=== PATIENT | female | born 1965 | race Caucasian/White ===

== ENCOUNTER → 2016-09-30 | Outpatient (CLI) | payer BC ==
[~2016-09-30] MED LIST: AMT50 PO; BUPR100T8 PO; ESTR1DIS TOP; GABA1CAP4 PO; LEVO-14 PO; MELATAB2 PO; MULT-808 PO; OMEP20CA9 PO; PRED20TA2 PO; RANI300T PO; SUMA100T16 PO; VALE450C4 PO; WLLSR150 PO
[2016-09-30 10:12] LABS: BASO % 0.2 %; BASO ABS # 0.02 K/uL (0-0.2); COMPLETE YES; EOS % 2.6 %; HEMATOCRIT 42.8 % (37-47); IG% 0.1 %; LYMPH % 23.6 %; MEAN CELL VOLUME 90.5 fL (80-100); MEAN CORPUSCULAR HEMOGLOBIN 30.4 pg (25-34); MEAN CORPUSCULAR HGB CONC 33.6 g/dl (32-36); MONO % 5.2 %; NEUT % 68.3 %; PLATELET COUNT 340 K/uL (130-400); RED BLOOD COUNT 4.73 M/uL (4.2-5.4); WHITE BLOOD COUNT 8.06 K/uL (4.8-10.8)
[2016-09-30 11:28] LABS: LYME DISEASE AB IGG NEG (NEG); LYME DISEASE AB IGM NEG (NEG)
== END | disposition home or self-care (01) ==
LOC: C.LAB 09:52
PROVIDERS: ATTEND Nurse Practitioner Family
DX: L50.9 Urticaria, unspecified (principal)

== ENCOUNTER → 2016-10-18 | Outpatient (CLI) | payer BC ==
[2016-10-18 14:43] LABS: HEMATOCRIT 44.7 % (37-47); MEAN CELL VOLUME 89.4 fL (80-100); MEAN CORPUSCULAR HGB CONC 32.4 g/dl (32-36); MEAN PLATELET VOLUME 9.1 fL (7.4-10.4); PLATELET COUNT 455 K/uL (130-400); WHITE BLOOD COUNT 11.82 K/uL (4.8-10.8)
[2016-10-18 15:07] LABS: CALCIUM 9.5 mg/dl (8.5-10.1)
[2016-10-18 15:10] LABS: BLOOD UREA NITROGEN 16 mg/dl (7-18); BUN/CREATININE RATIO 15.8 (10-20); CARBON DIOXIDE 31 mmol/L (21-32); CHLORIDE 101 mmol/L (98-107); GLUCOSE 78 mg/dl (70-99); POTASSIUM 3.3 mmol/L (3.5-5.1); SODIUM 140 mmol/L (136-145)
[2016-10-18 15:12] LABS: BASO % 0.3 %; BASO ABS # 0.04 K/uL (0-0.2); COMPLETE YES; EOS % 1.9 %; IG% 0.4 %; LYMPH % 45.3 %; LYMPH ABS # 5.36 K/uL (1.2-3.4); MONO % 6.7 %; NEUT % 45.4 %
[2016-10-18 15:13] LABS: ALB/GLOB RATIO 0.9 (0.9-2); ALKALINE PHOSPHATASE 90 U/L (45-117); ALT/SGPT 30 U/L (12-78); AST/SGOT 15 U/L (15-37)
[2016-10-20 14:24] LABS: BEEF CLASS 0; BEEF IGE <0.10 KU/L; CHOCOLATE CLASS 0; CHOCOLATE IGE <0.10 KU/L; CLAM CLASS 0/1; CLAM IGE 0.11 KU/L; CORN CLASS 0; CORN IGE <0.10 KU/L; CRAB CLASS 0/1; CRAB IGE 0.14 KU/L; EGG MIX CLASS 0; EGG MIX IGE <0.10 KU/L; LOBSTER CLASS 0; LOBSTER IGE <0.10 KU/L; PEANUT IGE <0.10 KU/L; PORK CLASS 0; PORK IGE <0.10 KU/L; SHRIMP CLASS 2; SOY CLASS 0; SOY IGE <0.10 KU/L; WHEAT CLASS 0; WHEAT IGE <0.10 KU/L
== END | disposition home or self-care (01) ==
LOC: C.LAB1850 13:09
PROVIDERS: ATTEND Internal Medicine Pulmonary Disease
DX: L50.9 Urticaria, unspecified (principal)

== ENCOUNTER 2016-12-26 06:16 | Emergency (ER) | payer BC ==
[~2016-12-26] VITALS: Ht 167.6 cm; Wt 90.6 kg
[~2016-12-26 06:16] MED LIST changes: -LEVO-14 PO; -MELATAB2 PO; -MULT-808 PO; -PRED20TA2 PO; -RANI300T PO; -VALE450C4 PO; -WLLSR150 PO
[2016-12-26 06:21] VITALS: TEMP 36.9; Ht 167.6 cm; Wt 90.6 kg
[2016-12-26] MEDS ORDERED: DiphenhydrAMINE HCL 50 MG/ML VIAL IV STA (06:43)
[2016-12-26] MEDS ORDERED: DEXAMETHASONE INJ 8 MG in SYRINGE 0 ML IV ONE (06:45)
[2016-12-26] MEDS ORDERED: FAMOTIDINE IV INJ 40 MG in DEXTROSE 5% 100ML 100 ML IV SCH (06:45)
[2016-12-26] MEDS ORDERED: SODIUM CHLORIDE 0.9% 1000ML 1,000 ML IV STA (06:46)
[2016-12-26] MEDS ORDERED: DEXAMETHASONE SOD INJ 10 MG/ML VIAL ONE (06:49)
[2016-12-26] MEDS ORDERED: WLLSR150 PO (06:54)
[2016-12-26] MEDS ORDERED: RANI300T PO (06:54)
[2016-12-26] MEDS ORDERED: PRED20TA2 PO (06:54)
[2016-12-26] MEDS ORDERED: LEVO-14 PO (06:54)
[2016-12-26] MEDS ORDERED: MULT-808 PO (06:56)
[2016-12-26] MEDS ORDERED: VALE450C4 PO (06:56)
[2016-12-26] MEDS ORDERED: MELATAB2 PO (06:57)
--- NOTE | 2016-12-26 07:26 | EMERGENCY ROOM VISIT NOTE ---
History Report prepared by Amberly: Ivett Calero Under the Supervision of: Dr. Quinton Barr D.O. First contact with patient: 06:28 Chief Complaint: ALLERGIC REACTION Stated Complaint: SWELLING OF FACE AND TONGUE Nursing Triage Summary: see triage note History of Present Illness The patient is a 51 year old female who presents to the Emergency Room with complaints of a sudden allergic reaction beginning 3 hours prior to arrival. The patient states that she woke up to go to the bathroom this morning and noticed that her tongue and left eye were swollen. She denies eating anything new recently, or trying any new deodorants, soaps, or detergents. She reports that she has a history of hives and takes prednisone as needed for her hives. She reports that she took 40 mg of prednisone today. The patient states that she has also started seeing an dredge captain. She reports that she has lip swelling about 2-3 times per week but not to this extent. She recently has had her dosage of Wellbutrin increased from 100 to 150 mg. She has no new contacts, animals, trips, waste cotton cleaner/detergents/clothing or medications. She reports that she had trouble swallowing earlier and was nauseous. Pt denies headache, change in vision, fevers, chest pain, shortness of breath, vomiting, diarrhea, pain with urination, and melena. Source of History: patient Onset: 3 hours prior to arrival Quality: other (allergic reaction) Timing: other (sudden) Associated Symptoms: + nausea, No fevers, No chest pain, No SOB, No urinary symptoms Review of Systems See HPI for pertinent positives & negatives. A total of 10 systems reviewed and were otherwise negative. Past Medical & Surgical Medical Problems: (1) Diverticulitis (2) Hernia (3) Migraines (4) Ovarian cyst (5) S/P hernia surgery (6) Small bowel obstruction Surgical Problems: (1) H/O ileostomy (2) H/O oophorectomy (3) H/O resection of small bowel (4) H/O: hysterectomy Family History Cancer Social History Smoking Status: Never Smoker Alcohol Use: none Marital Status: Housing Status: lives with significant other Occupation Status: employed Current/Historical Medications Scheduled Amitriptyline Hcl (Elavil), 50 MG PO HS Bupropion HCl (Bupropion HCl Sr), 150 MG PO BID Levocetirizine Dihydrochloride (Levocetirizine Dihydrochl), 5 MG PO QPM Melatonin (Melatonin Maximum Strengt), 10 MG PO HS Multiple Vitamin (Daily Vitamin), 1 TAB PO DAILY Omeprazole (Prilosec), 20 MG PO DAILY Ranitidine Hcl (Zantac), 300 MG PO BID Valerian (Valeriana Officinali (Valerian Root), 2 TABS PO HS Scheduled PRN Prednisone (Prednisone Tab), 40 MG PO UD PRN for hives Allergies Coded Allergies: Codeine (Verified Allergy, Mild, CAN TAKE PERCOCET, 12/26/16) Physical Exam Vital Signs Date Time Temp Pulse Resp B/P (MAP) Pulse Ox O2 Delivery O2 Flow Rate FiO2 12/26/16 09:35 102 14 126/78 95 Room Air 12/26/16 08:05 96 20 136/85 95 Room Air 12/26/16 06:25 97 Room Air 12/26/16 06:21 36.9 118 18 121/71 97 Room Air Physical Exam GENERAL: sitting up in bed, alert, well appearing, well nourished, no distress, non-toxic EYE EXAM: normal conjunctiva, PERRL and EOM's grossly intact, periorbital edema worse on the left eye than the right eye; able to completely open right eye, left eye with supraorbital swelling only allowing her to lift left eyelid a 1/ 4. No surrounding erythema or induration, skin intact. OROPHARYNX: no exudate, no erythema, lips, buccal mucosa, and tongue normal and mucous membranes are moist NECK: supple, no nuchal rigidity, no adenopathy, non-tender, no stridor LUNGS: Clear to auscultation. Normal chest wall mechanics HEART: no murmurs, S1 normal and S2 normal ABDOMEN: abdomen soft, non-tender, normo-active bowel sounds, no masses, no rebound or guarding. BACK: Back is symmetrical on inspection and there is no deformity, no midline tenderness, no CVA tenderness. SKIN: Warm lesion on left scapula which is erythematous, blanching, and circular about 3 cm UPPER EXTREMITIES: upper extremities are grossly normal. LOWER EXTREMITIES: No pitting edema. NEURO EXAM: Normal sensorium, cranial nerves II-XII intact, normal speech, no weakness of arms, no weakness of legs. Medical Decision & Procedures Medications Administered Medications (Trade) Dose Ordered Sig/Cecil Route Start Time Stop Time Status Last Admin Dose Admin Diphenhydramine HCl (Benadryl Inj) 50 mg NOW STAT IV 12/26/16 06:43 12/26/16 06:45 DC 12/26/16 06:55 50 MG Famotidine 40 mg/ Dextrose 104 ml @ 200 mls/hr NOW IV 12/26/16 06:45 12/26/16 10:24 DC 12/26/16 07:16 200 MLS/HR Sodium Chloride 1,000 ml @ 999 mls/hr Q1H1M STAT IV 12/26/16 06:46 12/26/16 07:46 DC 12/26/16 06:54 999 MLS/HR Dexamethasone Sodium Phosphate (Decadron Inj) 10 mg STK-MED ONCE .ROUTE 12/26/16 06:49 12/26/16 06:50 DC 12/26/16 06:54 8 MG ED Course ED COURSE: Vital signs were reviewed and showed tachycardia, situational hypertension. The patients medical record was reviewed The above diagnostic studies were performed and reviewed. ED treatments and interventions as stated above. 0635: The patient was evaluated in room A9. A complete history and physical examination was performed. 0643: Ordered Benadryl Inj 50 mg IV. 0645: Ordered Famotidine 40 mg/Dextrose 104 ml @ 200 mls/hr IV. 0646: Ordered Sodium Chloride 1,000 ml @ 999 mls/hr IV. 0649: Ordered Decadron Inj 8 mg. 0806: The patient's swelling has improved and she is now able to fully open her left eye. She no longer has swelling or numbness of her tongue. 0940: I updated the patient. 0945: Upon reevaluation, the patient is feeling better. I discussed the findings and the treatment plan with the patient. She verbalizes agreement and understanding. She was discharged home. Medical Decision Differential diagnosis: Etiologies such as allergic reaction, anaphylaxis, urticaria, Odom-Michael syndrome, toxic epidermal necrolysis, erythema multiforme, cellulitis, as well as others were entertained. Blood Pressure Screening: The patient was found to have a slightly elevated blood pressure due to circumstances. I do not believe that the patient requires hypertension monitoring. Medication Reconciliation: I attest that I have personally reviewed the patient' s current medication list. Patient is a 51-year-old female who presents the ER following noticing her tongue and eyes swelling this morning. She notes that she has been following with a early childhood services coordinator, dredge captain and PCP for intermittent hives that she has been getting about twice a week over the past several months. She has home steroids which she takes when she gets these hives. She took 40 mg of prednisone prior to arrival. She notes the swelling of her tongue has improved significantly and she is now able to open her left eye which she was unable to initially. On exam she is obvious swelling of her face. She is not on any DENIA or ARB. She is tolerating her secretions. Able to drink water. No shortness of breath. IV was established and she was given fluids, famotidine, steroids and Benadryl. She has no new contacts, animals, trips, waste cotton cleaner/detergents/ clothing or medications. Patient was discharged following 2 hours of observation feeling significantly better to follow-up with PCP and dredge captain. Discussed with Pt concerning signs and symptoms to watch out for. Pt was instructed to follow up with their PCP and discussed with the patient their option to return to the ED at anytime for persistent or worsening symptoms. The appropriate anticipatory guidance and out-patient management, including indications for return to the emergency department, were explained at length to the patient and understood. Medication Reconcilliation Current Medication List: was personally reviewed by me Impression Primary Impression: Allergic reaction Scribe Attestation The scribe's documentation has been prepared under my direction and personally reviewed by me in its entirety. I confirm that the note above accurately reflects all work, treatment, procedures, and medical decision making performed by me. Departure Information Dispostion Home / Self-Care Referrals Aleksander Rodriguez D.O. (PCP) Forms HOME CARE DOCUMENTATION FORM, IMPORTANT VISIT INFORMATION Patient Instructions ED Allergic Reaction General Other, My [facility] Additional Instructions Please follow up with your primary care doctor or if you are a student, [facility] with in the next 24 hours. Any worsening of your symptoms, please return to the ED immediately. This includes any fevers greater than 100.4, worsening pain, chest pain, shortness breath, inability to swallow, sewing the throat, persistent nausea, vomiting, unable to eat or drink, or any other concerning signs or symptoms from your standpoint. You were given medications during this visit that will inhibit your ability to drive, operate machinery and work. Please do NOT drive, operate machinery, drink alcohol or work for the next 12hrs. Please follow up with your early childhood services coordinator, dredge captain and PCP. Please take 50 mg of Benadryl every 8 hours as needed for swelling. Problem Qualifiers Primary Impression: Allergic reaction Encounter type: initial encounter Qualified Codes: T78.40XA - Allergy, unspecified, initial encounter
[2016-12-26 09:35] VITALS: BP 126/78; PULSE 102; O2SAT 95
== END 2016-12-26 10:00 | disposition home or self-care (01) ==
LOC: C.EDB 06:17 → C.EDA 10:00
DX: T78.40XA Allergy, unspecified, initial encounter (principal); X58.XXXA Exposure to other specified factors, initial encounter; N83.209 Unspecified ovarian cyst, unspecified side; K58.9 Irritable bowel syndrome, unspecified; K57.92 Diverticulitis of intestine, part unspecified, without perforation or abscess without bleeding; Z93.2 Ileostomy status; Z98.84 Bariatric surgery status; Z90.710 Acquired absence of both cervix and uterus; Z90.721 Acquired absence of ovaries, unilateral; Z79.899 Other long term (current) drug therapy; Z88.5 Allergy status to narcotic agent; Z80.9 Family history of malignant neoplasm, unspecified

== ENCOUNTER → 2017-01-30 | Outpatient (CLI) | payer BC ==
[~2017-01-30] MED LIST changes: -BUPR100T8 PO; -ESTR1DIS TOP; -GABA1CAP4 PO; +LEVO-14 PO; +MELATAB2 PO; +MULT-808 PO; +PRED20TA2 PO; +RANI300T PO; -SUMA100T16 PO; +VALE450C4 PO; +WLLSR150 PO
[2017-02-04 02:23] LABS: ANTI-CENTROMERE AB <1.0 NEG AI (<1.0 NEG); ANTI-SS-A <1.0 NEG AI (<1.0 NEG); ANTI-SS-B <1.0 NEG AI (<1.0 NEG); DNA ds CRITHIDIA NEGATIVE (NEGATIVE); MICROSOMAL AB <1 IU/ML (<9); Sm Antibody <1.0 NEG AI (<1.0 NEG)
== END | disposition home or self-care (01) ==
LOC: C.LAB1850 11:00
PROVIDERS: ATTEND Internal Medicine Pulmonary Disease
DX: T78.3XXA Angioneurotic edema, initial encounter (principal); X58.XXXA Exposure to other specified factors, initial encounter

== ENCOUNTER → 2017-03-30 | Outpatient (CLI) | payer BC ==
--- NOTE | 2017-03-30 15:38 | MAMMOGRAPHY REPORT ---
BILATERAL DIGITAL SCREENING MAMMOGRAM TOMOSYNTHESIS WITH CAD: 03/30/2017 CLINICAL HISTORY: Routine screening. Patient has no complaints. TECHNIQUE: Breast tomosynthesis in addition to standard 2D mammography was performed. Current study was also evaluated with a Computer Aided Detection (CAD) system. COMPARISON: Comparison is made to exams dated: 03/23/2016 mammogram, 02/05/2015 mammogram, 01/30/2014 m ammogram, 11/17/2009 mammogram - [facility], 04/15/2008, and 06/12/2006. BREAST COMPOSITION: There are scattered areas of fibroglandular density in both breasts. FINDINGS: No suspicious masses, calcifications, or areas of architectural distortion are noted in ei ther breast. There has been no significant interval change compared to prior exams. The breasts are smaller in size bilaterally compared to prior exams, possibly representing interval reduction mammopl asty. IMPRESSION: ACR BI-RADS CATEGORY 2: BENIGN There is no mammographic evidence of malignancy. A 1 year screening mammogram is recommended. The pa tient will receive written notification of the results. Approximately 10% of breast cancers are not detected with mammography. A negative mammographic report should not delay biopsy if a clinically suggestive mass is present. Rae Butler M.D. ah/:03/30/2017 15:06:04 Salesperson House[employer] Appliances: Digna GUILLEN(Bert)(M), [facility] letter sent: Normal 1/2 BI-RADS Code: ACR BI-RADS Category 2: Benign
== END | disposition home or self-care (01) ==
LOC: C.MAMM 14:26
PROVIDERS: ATTEND Surgery Plastic and Reconstructive Surgery
DX: Z12.31 Encounter for screening mammogram for malignant neoplasm of breast (principal)

== ENCOUNTER → 2017-04-09 | Outpatient (CLI) | payer BC | END | disposition home or self-care (01) | LOC: C.LAB1850 15:54 | PROVIDERS: ATTEND Internal Medicine Pulmonary Disease | DX: T78.3XXA Angioneurotic edema, initial encounter (principal); X58.XXXA Exposure to other specified factors, initial encounter ==

== ENCOUNTER 2017-06-13 08:43 | Emergency (ER) | payer BC, OTHER ==
[~2017-06-13] VITALS: Ht 167.6 cm; Wt 96.8 kg
[2017-06-13 08:48] VITALS: TEMP 36.7; Ht 167.6 cm; Wt 96.8 kg
[2017-06-13] MEDS ORDERED: ONDANSETRON INJ 2 MG/ML 2 ML VIAL IV STA (09:07)
[2017-06-13] MEDS ORDERED: MoRPHine SULFATE 10 MG/ML CARP/VIAL IV STA (09:07)
[2017-06-13] MEDS ORDERED: ESTR1DIS (09:10)
--- NOTE | 2017-06-13 09:56 | DIAGNOSTIC IMAGING REPORT ---
CHEST AND ABDOMEN 2 VIEWS HISTORY: epigastric/suprapubic abdominal pain, hx. obstructions COMPARISON: Chest and osseous 02/13/2015. FINDINGS: The lungs are clear. The cardiomediastinal silhouette is within normal limits. There is no pneumoperitoneum or pneumatosis. The bowel gas pattern is unremarkable. No evidence for bowel obstruction. Cholelithiasis. Calcifications in the deep pelvis likely represent phleboliths. There is also suture material within the pelvis overlying the sacrum. No renal or ureteral calculi identified. IMPRESSION: No acute cardiopulmonary process. No evidence for bowel obstruction. Cholelithiasis. Electronically signed by: Jethro Mckeon M.D. 06/13/2017 9:55 AM Dictated Date/Time: 06/13/2017 9:49 AM
[2017-06-13 10:35] LABS: BASO % 0.2 %; BASO ABS # 0.02 K/uL (0-0.2); EOS % 1.6 %; HEMATOCRIT 41.6 % (37-47); HEMOGLOBIN 14.6 g/dL (12.0-16.0); IG# 0.04 K/uL (0.00-0.02); LYMPH % 18.1 %; LYMPH ABS # 2.19 K/uL (1.2-3.4); MEAN CELL VOLUME 88.1 fL (80-100); MEAN CORPUSCULAR HEMOGLOBIN 30.9 pg (25-34); MEAN CORPUSCULAR HGB CONC 35.1 g/dl (32-36); MEAN PLATELET VOLUME 8.9 fL (7.4-10.4); MONO % 6.6 %; NEUT % 73.2 %; NEUT ABS # 8.88 K/uL (1.4-6.5); PLATELET COUNT 334 K/uL (130-400); RED CELL DISTRIBUTION WIDTH CV 13.2 % (11.5-14.5); RED CELL DISTRIBUTION WIDTH SD 43.3 fL (36.4-46.3); WHITE BLOOD COUNT 12.13 K/uL (4.8-10.8)
[2017-06-13 10:54] LABS: ALBUMIN 3.5 gm/dl (3.4-5.0); ALT/SGPT 31 U/L (12-78); BLOOD UREA NITROGEN 19 mg/dl (7-18); CALCIUM 8.7 mg/dl (8.5-10.1); CARBON DIOXIDE 27 mmol/L (21-32); CREATININE 0.93 mg/dl (0.60-1.20); GLUCOSE 104 mg/dl (70-99); LIPASE 158 U/L (73-393); POTASSIUM 3.4 mmol/L (3.5-5.1); SODIUM 136 mmol/L (136-145)
[2017-06-13 10:59] LABS: ALKALINE PHOSPHATASE 80 U/L (45-117); AST/SGOT 20 U/L (15-37); CKMB 2.1 ng/ml (0.5-3.6)
[2017-06-13] MEDS ORDERED: OPTIRAY 320 IV PRN (11:30)
--- NOTE | 2017-06-13 12:15 | DIAGNOSTIC IMAGING REPORT ---
ABD/PELVIS IV CONTRAST ONLY CT DOSE: 917.28 mGy.cm HISTORY: Pain epigastric pain, h/o SBO, ventral hernia TECHNIQUE: Multiaxial CT images of the abdomen and pelvis were performed following the use of intravenous contrast. A dose lowering technique was utilized adhering to the principles of ALARA. COMPARISON STUDY: 01/06/2014 FINDINGS: Lung bases are considered clear. Liver spleen and pancreas are unremarkable. Gallstones are again noted within the gallbladder lumen. Kidneys negative for hydronephrosis. Operative findings of the ventral hernia repair again noted. There is a small residual fat-containing ventral hernia at the superior Bowel pattern currently is nonobstructive. Findings of a partial small bowel resection are again noted with an anastomotic line in the upper right abdominal region. Bowel pattern is nonobstructive overall. Bladder is midline. Several fluid-filled loops small bowel present within the low pelvis consistent with a nonobstructive ileus. Margin of the repair site. IMPRESSION: 1. No evidence for true obstructive change. 2. Mild nonobstructive ileus within the low pelvis versus mild enteritis. 3. Ventral hernia repair anterior abdominal wall which primarily is intact with a small fat-containing residual hernia component . This is nonobstructive. 4. Gallstones similar to the prior exam. The above report was generated using voice recognition software. It may contain grammatical, syntax or spelling errors. Electronically signed by: Thomas Serrano M.D. 06/13/2017 12:13 PM Dictated Date/Time: 06/13/2017 12:07 PM
[2017-06-13] MEDS ORDERED: ONDA4TAB10 SL (13:04)
[2017-06-13] MEDS ORDERED: HYDR-5688 PO (13:04)
--- NOTE | 2017-06-13 13:08 | EMERGENCY ROOM VISIT NOTE ---
History First contact with patient: 08:57 Chief Complaint: ABDOMINAL PAIN Stated Complaint: SEVERE ABDOMINAL PAIN, HX OF BOWEL BLOCKAGE Nursing Triage Summary: pt reports severe mid abd pain started yesterday has hx of bowel blockages and hernias. pt reports moving bowels this am was normal for her History of Present Illness The patient is a 51 year old female who presents to the Emergency Room with complaints of epigastric pain which began yesterday, worsened today. The patient states the pain has been so severe it has taken her breath away. She states it intermittently was causing her discomfort yesterday, but today has been constant. She states throughout the night, she was up with nausea and severe pain. She denies any recent illness or fever. She does report some suprapubic discomfort, but denies any other abdominal pain. She denies any diarrhea or constipation, and in fact did move her bowels twice this morning and throughout the night, all normal bowel movements. She states the pain feels similar to previous bowel obstructions she has had in the past. She states she did have salad for dinner, and has had only sips of juice throughout the night and this morning, but has been tolerating this without vomiting. She denies any chest pain, dyspnea, paresthesias, back pain, fever, chills, upper respiratory infection symptoms, sore throat, reflux, or other concerning symptoms. She denies any dysuria, urinary frequency, urinary hesitancy, or hematuria. Review of Systems A complete 10 point review of systems was reviewed with the patient with pertinent positives and negatives as per history of present illness. All else were negative. Past Medical/Surgical History Medical Problems: (1) Diverticulitis (2) Hernia (3) Migraines (4) Ovarian cyst (5) S/P hernia surgery (6) Small bowel obstruction Surgical Problems: (1) H/O ileostomy (2) H/O oophorectomy (3) H/O resection of small bowel (4) H/O: hysterectomy Family History Cancer Social History Smoking Status: Never Smoker Alcohol Use: none Marital Status: Housing Status: lives with significant other Occupation Status: employed Current/Historical Medications Scheduled Amitriptyline Hcl (Elavil), 50 MG PO HS Estradiol (Estradiol), 0.075 MG DAILY Levocetirizine Dihydrochloride (Levocetirizine Dihydrochl), 5 MG PO QPM Melatonin (Melatonin Maximum Strengt), 10 MG PO HS Ondasetron Odt (Zofran Odt), 4 MG SL Q6H Ranitidine Hcl (Zantac), 300 MG PO BID Valerian (Valeriana Officinali (Valerian Root), 2 TABS PO HS Scheduled PRN Hydrocodone/Acetaminophen 5MG/325MG (Perry 5MG/325MG), 1 TABLET PO Q6 PRN for Pain Physical Exam Vital Signs Date Time Temp Pulse Resp B/P (MAP) Pulse Ox O2 Delivery O2 Flow Rate FiO2 06/13/17 13:37 107 138/88 95 06/13/17 11:05 91 15 149/88 98 Room Air 06/13/17 09:30 103 06/13/17 08:48 36.7 106 18 149/88 99 Room Air Physical Exam VITALS: Vitals are noted on the nurse's note and reviewed by myself. Vital signs stable. GENERAL: This is a 51-year-old obese white female, in no acute distress, nondiaphoretic, well-developed well-nourished. SKIN: The skin was without rashes, erythema, edema, or bruising. There is no tenting of the skin. Capillary reflex less than 2 seconds. HEAD: Normocephalic atraumatic. EARS: External auditory canals clear, tympanic membranes pearly garcia without erythema or effusion bilaterally. EYES: Pupils equal round and reactive to light and accommodation. Conjunctivae without injection, sclerae without icterus. Extraocular movements intact. NOSE: Patent, turbinates without inflammation or discharge. No sinus tenderness. MOUTH: Mucous membranes moist. Tonsils are not enlarged. Pharynx without erythema or exudate. Uvula midline. Airway patent. Tongue does not deviate. NECK: Supple without nuchal rigidity. No lymphadenopathy. No thyromegaly. Cervical spine is nontender. No JVD. HEART: Regular rate and rhythm without murmurs gallops or rubs. LUNGS: Clear to auscultation bilaterally without wheezes, rales or rhonchi. No dullness to percussion. No retractions or accessory muscle use. ABDOMEN: Positive bowel sounds x 4. Normal tympanic percussion. Tenderness noted diffusely, but worse in the epigastric and suprapubic areas. Soft, without masses or organomegaly. Jules sign negative. No guarding or rebound tenderness. MUSCULOSKELETAL: No muscle atrophy, erythema, or edema noted. Full range of motion without joint tenderness in all extremities. No tenderness to palpation. Normal gait. Strength 5/5 throughout. NEURO: Patient was alert and oriented to person place and time. Normal sensation to light and sharp touch. Deep tendon reflexes 2+ throughout. No focal neurological deficits. Medical Decision & Procedures ER Provider Diagnostic Interpretation: CBC showed mild leukocytosis of 12,000. Urinalysis did not show any signs of infection or blood. PRP did not show significant renal, hepatic, or T-wave abnormalities. Troponin and CK-MB were negative. Lipase was normal. CHEST AND ABDOMEN 2 VIEWS HISTORY: epigastric/suprapubic abdominal pain, hx. obstructions COMPARISON: Chest and osseous 02/13/2015. FINDINGS: The lungs are clear. The cardiomediastinal silhouette is within normal limits. There is no pneumoperitoneum or pneumatosis. The bowel gas pattern is unremarkable. No evidence for bowel obstruction. Cholelithiasis. Calcifications in the deep pelvis likely represent phleboliths. There is also suture material within the pelvis overlying the sacrum. No renal or ureteral calculi identified. IMPRESSION: No acute cardiopulmonary process. No evidence for bowel obstruction. Cholelithiasis. Electronically signed by: Jethro Mckeon M.D. 06/13/2017 9:55 AM Dictated Date/Time: 06/13/2017 9:49 AM ABD/PELVIS IV CONTRAST ONLY CT DOSE: 917.28 mGy.cm HISTORY: Pain epigastric pain, h/o SBO, ventral hernia TECHNIQUE: Multiaxial CT images of the abdomen and pelvis were performed following the use of intravenous contrast. A dose lowering technique was utilized adhering to the principles of ALARA. COMPARISON STUDY: 01/06/2014 FINDINGS: Lung bases are considered clear. Liver spleen and pancreas are unremarkable. Gallstones are again noted within the gallbladder lumen. Kidneys negative for hydronephrosis. Operative findings of the ventral hernia repair again noted. There is a small residual fat-containing ventral hernia at the superior Bowel pattern currently is nonobstructive. Findings of a partial small bowel resection are again noted with an anastomotic line in the upper right abdominal region. Bowel pattern is nonobstructive overall. Bladder is midline. Several fluid-filled loops small bowel present within the low pelvis consistent with a nonobstructive ileus. Margin of the repair site. IMPRESSION: 1. No evidence for true obstructive change. 2. Mild nonobstructive ileus within the low pelvis versus mild enteritis. 3. Ventral hernia repair anterior abdominal wall which primarily is intact with a small fat-containing residual hernia component . This is nonobstructive. 4. Gallstones similar to the prior exam. The above report was generated using voice recognition software. It may contain grammatical, syntax or spelling errors. Electronically signed by: Thomas Serrano M.D. 06/13/2017 12:13 PM Dictated Date/Time: 06/13/2017 12:07 PM Laboratory Results 06/13/17 10:20 Red Blood Count 4.72, Mean Corpuscular Volume 88.1, Mean Corpuscular Hemoglobin 30.9, Mean Corpuscular Hemoglobin Concent 35.1, Mean Platelet Volume 8.9, Neutrophils (%) (Auto) 73.2, Lymphocytes (%) (Auto) 18.1, Monocytes (%) (Auto) 6.6, Eosinophils (%) (Auto) 1.6, Basophils (%) (Auto) 0.2, Neutrophils # (Auto) 8.88, Lymphocytes # (Auto) 2.19, Monocytes # (Auto) 0.80, Eosinophils # (Auto) 0.20, Basophils # (Auto) 0.02 06/13/17 10:20 Test 06/13/17 09:05 06/13/17 09:25 06/13/17 10:20 Creatine Kinase MB Ratio (0-3.0) Urine Color YELLOW Urine Appearance CLEAR (CLEAR) Urine pH 5.5 (4.5-7.5) Urine Specific [place] 1.031 (1.000-1.030) Urine Protein NEG (NEG) Urine Glucose (UA) NEG (NEG) Urine Ketones NEG (NEG) Urine Occult Blood NEG (NEG) Urine Nitrite NEG (NEG) Urine Bilirubin NEG (NEG) Urine Urobilinogen NEG (NEG) Urine Leukocyte Esterase NEG (NEG) White Blood Count 12.13 K/uL (4.8-10.8) Red Blood Count 4.72 M/uL (4.2-5.4) Hemoglobin 14.6 g/dL (12.0-16.0) Hematocrit 41.6 % (37-47) Mean Corpuscular Volume 88.1 fL (80-100) Mean Corpuscular Hemoglobin 30.9 pg (25-34) Mean Corpuscular Hemoglobin Concent 35.1 g/dl (32-36) Platelet Count 334 K/uL (130-400) Mean Platelet Volume 8.9 fL (7.4-10.4) Neutrophils (%) (Auto) 73.2 % Lymphocytes (%) (Auto) 18.1 % Monocytes (%) (Auto) 6.6 % Eosinophils (%) (Auto) 1.6 % Basophils (%) (Auto) 0.2 % Neutrophils # (Auto) 8.88 K/uL (1.4-6.5) Lymphocytes # (Auto) 2.19 K/uL (1.2-3.4) Monocytes # (Auto) 0.80 K/uL (0.11-0.59) Eosinophils # (Auto) 0.20 K/uL (0-0.5) Basophils # (Auto) 0.02 K/uL (0-0.2) RDW Standard Deviation 43.3 fL (36.4-46.3) RDW Coefficient of Variation 13.2 % (11.5-14.5) Immature Granulocyte % (Auto) 0.3 % Immature Granulocyte # (Auto) 0.04 K/uL (0.00-0.02) Anion Gap 5.0 mmol/L (3-11) Est Creatinine Clear Calc Drug Dose 83.9 ml/min Estimated GFR () 82.5 Estimated GFR (Non- 71.2 BUN/Creatinine Ratio 20.5 (10-20) Calcium Level 8.7 mg/dl (8.5-10.1) Total Bilirubin 0.5 mg/dl (0.2-1) Aspartate Amino Transf (AST/SGOT) 20 U/L (15-37) Alanine Aminotransferase (ALT/SGPT) 31 U/L (12-78) Alkaline Phosphatase 80 U/L (45-117) Creatine Kinase MB 2.1 ng/ml (0.5-3.6) Troponin I < 0.015 ng/ml (0-0.045) Total Protein 7.0 gm/dl (6.4-8.2) Albumin 3.5 gm/dl (3.4-5.0) Globulin 3.5 gm/dl (2.5-4.0) Albumin/Globulin Ratio 1.0 (0.9-2) Lipase 158 U/L (73-393) Medications Administered Medications (Trade) Dose Ordered Sig/Cecil Route Start Time Stop Time Status Last Admin Dose Admin Morphine Sulfate (MoRPHine SULFATE INJ) 8 mg NOW STAT IV 06/13/17 09:07 06/13/17 09:08 DC 06/13/17 10:43 8 MG Ondansetron HCl (Zofran Inj) 4 mg NOW STAT IV 06/13/17 09:07 06/13/17 09:08 DC 06/13/17 10:43 4 MG ECG Indication: abdominal pain Rate (beats per minute): 109 Rhythm: sinus tachycardia Findings: no acute ischemic change, no ectopy Comparison ECG Date: 08/06/2013 Change: no significant change ED Course The patient was seen and evaluated as above. IV access obtained, labs drawn. The patient was given 8 mg morphine and 4 mg Zofran IV. Labs and Abdominal x-ray were reviewed and discussed with the patient at bedside. CT scan with IV contrast was ordered at this time. I did discuss the case with Dr. Ceballos, who is in agreement with the assessment and plan. Repeat abdominal examination was performed. The patient continues to experience some very mild discomfort, but states it has significantly improved. All results discussed with the patient at bedside. Discharge instructions reviewed, and the patient was discharged home in good condition. Medical Decision This is a 51-year-old obese female patient presents with significant past medical history for small bowel obstruction and ventral hernia status post multiple abdominal surgeries. She states she is experiencing epigastric and suprapubic pain, similar to pain she has experienced in the past related to small bowel obstruction. The patient has been moving her bowels consistently, and states she has had multiple bowel movements between last night and this morning. Workup was overall negative, however CT scan did show evidence of nonobstructive ileus versus enteritis. The patient will be treated with a clear liquid diet, pain and nausea medication, and outpatient follow-up with her surgeon. She was given close, strict return instructions. I do suspect more of an enteritis, given the patient's mild leukocytosis, more frequent bowel movements, and abdominal pain. She is in agreement with the assessment and plan. I did speak with Dr. Ceballos regarding the findings and examination, and he is in agreement with the assessment and plan. I did discuss the risks associated with narcotic pain medication and increased risk for bowel obstruction with the patient and her at bedside and she verbalizes understanding. Etiologies such as appendicitis, diverticulitis, obstruction, inflammatory bowel disease, renal colic, PUD, biliary pathology, pancreatitis, mesenteric ischemia, aortic pathology, infections, genitourinary, UTI, perforated viscus, as well as others were entertained. Medication Reconcilliation Current Medication List: was personally reviewed by me Blood Pressure Screening Patient's blood pressure: Elevated blood pressure Blood pressure disposition: Elevated BP felt to be situational Impression Primary Impression: Acute abdominal pain Departure Information Dispostion Home / Self-Care Condition GOOD Prescriptions Hydrocodone/Acetaminophen 5MG/325MG (Perry 5MG/325MG) Tab 1 TABLET PO Q6 Y for Pain, #12 TAB PRN PAIN Prov: Brenda Gomez PA-C 06/13/17 Ondasetron Odt (ZOFRAN ODT) 4 Mg Tab 4 MG SL Q6H for Nausea, #6 TAB Prov: Brenda Gomze PA-C 06/13/17 Referrals Aleksander Rodriguez D.O. (PCP) [facility] Patient Instructions ED Abdominal Pain Adhesions, ED Abdominal Pain Unkn Cause, ED Gastroenteritis Viral, My [facility] Additional Instructions You have been treated in the Emergency Department your Abdominal Pain. Laboratory results and imaging studies have ruled out any emergent causes for your abdominal pain which would warrant admission or surgery. You have been prescribed Perry to be used for pain control. This is a narcotic medication. You cannot drive or consume alcohol while on this medicine. This medicine should only be used for pain that cannot be controlled with over-the- counter pain medicines. You have been prescribed Zofran to be used for any nausea or vomiting. Take as prescribed. For pain control, you can use the following [id number] medicines (if >12 yo): Ibuprofen(Motrin, Advil) may be used for fever or pain. Use 600mg every six hours as needed. Take with food. Avoid using more than 2400mg in a 24 hour period. Do not use 2400mg per day for more than three consecutive days without physician direction. Prolonged inappropriate use can lead to stomach upset or ulcers. (AND/OR) Acetaminophen(Tylenol) may be used for fever or pain. Use 1000mg every six hours as needed. Avoid using more than 3000mg in a 24 hour period. As discussed, CT scan did show a nonobstructive ileus versus enteritis. I do suspect warm and infectious cause, as your with blood cell count was slightly elevated. I would like to treat you preventatively for possible obstruction, due to her history. I do recommend clear liquid diet for 48-72 hours, then slowly increase the diet as tolerated. Drink plenty of water and stay well hydrated. As with any trip to the Emergency Department, you should follow-up with your Primary Care Provider from today's visit. Please consider follow-up with your general surgeon for reevaluation and due to the pain. Return to the emergency department if your symptoms persist despite treatment plan outlined above or if the following symptoms occur: increased fevers, chills , worsening nausea/vomiting, blood in your stool or urine.
[2017-06-13 13:37] VITALS: BP 138/88; PULSE 107; O2SAT 95
== END 2017-06-13 13:39 | disposition home or self-care (01) ==
LOC: C.EDB 08:44
DX: R10.13 Epigastric pain (principal); D72.829 Elevated white blood cell count, unspecified; R03.0 Elevated blood-pressure reading, without diagnosis of hypertension; R11.0 Nausea; K57.92 Diverticulitis of intestine, part unspecified, without perforation or abscess without bleeding; K43.9 Ventral hernia without obstruction or gangrene; K56.609 Unspecified intestinal obstruction, unspecified as to partial versus complete obstruction; Z90.49 Acquired absence of other specified parts of digestive tract; Z79.890 Hormone replacement therapy

== ENCOUNTER → 2017-06-19 | Outpatient (CLI) | payer OTHER ==
[~2017-06-19] MED LIST changes: +ESTR1DIS; +HYDR-5688 PO; -MULT-808 PO; -OMEP20CA9 PO; +ONDA4TAB10 SL; -PRED20TA2 PO; -WLLSR150 PO
== END | disposition home or self-care (01) ==
LOC: C.LAB1850 12:08
PROVIDERS: ATTEND Internal Medicine Pulmonary Disease
DX: G43.909 Migraine, unspecified, not intractable, without status migrainosus (principal); L50.9 Urticaria, unspecified

== ENCOUNTER → 2017-08-24 | Outpatient (CLI) | payer OTHER ==
--- NOTE | 2017-08-24 07:54 | DIAGNOSTIC IMAGING REPORT ---
ABDOMINAL ULTRASOUND, RIGHT UPPER QUADRANT HISTORY: NAUSEA. COMPARISON: Abdomen and pelvis CT 06/13/2017. FINDINGS: Pancreas: The pancreatic tail is obscured by overlying bowel gas. The remaining portions of the pancreas are within normal limits. Liver: Unremarkable. Gallbladder: No gallbladder wall thickening. Tiny gallstones are again noted. CBD: 5 mm. Right kidney: No hydronephrosis. IMPRESSION: Cholelithiasis. No gallbladder wall thickening. Electronically signed by: Jethro Mckeon M.D. 08/24/2017 7:53 AM Dictated Date/Time: 08/24/2017 7:52 AM
== END | disposition home or self-care (01) ==
LOC: C.ULTR 07:31
PROVIDERS: ATTEND Nurse Practitioner Family
DX: R11.0 Nausea (principal); K80.20 Calculus of gallbladder without cholecystitis without obstruction

== ENCOUNTER 2019-04-14 19:25 | Inpatient (IN) ==
[2019-04-14] MEDS ORDERED: SODIUM CHLORIDE 0.9% 1000ML 500 ML IV ONE (19:59)
[2019-04-14] MEDS ORDERED: ONDANSETRON INJ 2 MG/ML 2 ML VIAL IV STA ×2 (19:59→21:48)
[2019-04-14] MEDS ORDERED: SODIUM CHLORIDE 0.9% 1000ML 1,000 ML IV STA (19:59)
[2019-04-14] MEDS: HYDROmorphone INJ 0.5 MG/0.5 ML SYR IV PRN ×2 (20:06→21:02)
[2019-04-14 20:11] LABS: Basophils # (auto) 0.03 K/uL (0-0.2); Basophils % (auto) 0.2 %; Eosinophils # (auto) 0.16 K/uL (0-0.5); Eosinophils % (auto) 1.3 %; Hematocrit (blood only) 46.5 % (37-47); Hemoglobin 16.4 g/dL (12.0-16.0); Immature Granulocytes # (auto) 0.05 K/uL (0.00-0.02); Immature Granulocytes % (auto) 0.4 %; Lymphocytes # (auto) 2.55 K/uL (1.2-3.4); Lymphocytes % (auto) 20.1 %; Mean Corpuscular Hemoglobin 31.8 pg (25-34); Mean Corpuscular Hgb Conc 35.3 g/dL (32-36); Mean Corpuscular Volume 90.3 fL (80-100); Mean Platelet Volume 9.4 fL (7.4-10.4); Monocytes % (auto) 6.3 %; Neutrophils # (auto) 9.09 K/uL (1.4-6.5); Neutrophils % (auto) 71.7 %; Platelet Count 350 K/uL (130-400); RDW Standard Deviation 42.8 fL (36.4-46.3); Red Blood Count 5.15 M/uL (4.2-5.4); White Blood Count 12.68 K/uL (4.8-10.8)
[2019-04-14 20:19] LABS: Appearance Urine Clear (Clear); Bilirubin Urine Negative (Negative); Blood Urine Negative (Negative); Color Urine Yellow; Glucose Urine UA Negative (Negative); Ketones Urine Negative (Negative); Leukocyte Esterase Urine Negative (Negative); Nitrite Urine Negative (Negative); Protein Urine Negative (Negative); Specific Gravity Urine 1.009 (1.000-1.030); Urobilinogen Urine Negative (Negative); pH Urine >= 9.0 (4.5-7.5)
[2019-04-14 20:20] LABS: Alanine Aminotransferase 40 U/L (12-78); Albumin Level 4.2 gm/dl (3.4-5.0); Aspartate Aminotransferase 30 U/L (15-37); BUN Creatinine Ratio 16.7 (10-20); Blood Urea Nitrogen 19 mg/dl (7-18); Calcium 10.1 mg/dl (8.5-10.1); Carbon Dioxide 23 mmol/L (21-32); Chloride 103 mmol/L (98-107); Est GFR (African American) 64.9; Glucose 105 mg/dl (70-99); Lipase 188 U/L (73-393); Potassium 3.5 mmol/L (3.5-5.1); Sodium 135 mmol/L (136-145)
[2019-04-14 20:22] LABS: Alkaline Phosphatase 117 U/L (45-117); Bilirubin,Total 0.5 mg/dl (0.2-1); Globulin 4.2 gm/dl (2.5-4.0); Total Protein 8.4 gm/dl (6.4-8.2)
--- NOTE | 2019-04-14 21:02 | CT Scan Report ---
CT SCAN OF THE ABDOMEN AND PELVIS WITHOUT IV CONTRAST CLINICAL HISTORY: Generalized abdominal pain. COMPARISON STUDY: Abdominal CT dated 06/13/2017. TECHNIQUE: CT scan of the abdomen and pelvis is performed from the lung bases to the proximal femora. Images are reviewed in the axial, sagittal, and coronal planes. IV contrast was not administered for this examination as per the referring clinician. Note that the examination was performed in signific antly suboptimal fashion without oral and IV contrast. A dose lowering technique was utilized adherin g to the principles of ALARA. CT DOSE: 660.67 mGy.cm FINDINGS: Lung bases: The heart is normal in size and without pericardial effusion. The lung bases are clear. Liver: The unenhanced liver is normal in size, contour, and attenuation. There is no intrahepatic luisana iary ductal dilatation. Gallbladder: There are numerous layering calcified gallstones, with no CT evidence of acute cholecyst itis. Spleen: Normal in size and attenuation. Pancreas: The unenhanced pancreas is grossly unremarkable. Adrenal glands: Unremarkable. Kidneys: The unenhanced kidneys demonstrate cortical atrophy and are without hydronephrosis. There is a 2 mm nonobstructing calculus in the upper pole of the left kidney. No right renal calculi are iden tified. There is no evidence of contour deforming renal mass lesion. Abdominal vasculature: The abdominal aorta is normal in course and caliber. Bowel: There is postoperative change from sigmoid colon resection with colocolonic anastomosis. A sma ll bowel anastomosis present in the lower abdomen. The proximal small bowel loops are distended and f luid-filled measuring up to 3.6 cm in diameter. There is a transition point identified in the right l ower quadrant image #294. The distal small bowel and colon are decompressed and the appearance is con sistent with a small bowel obstruction. No focally thick walled bowel loops identified. There is no p neumatosis intestinalis or portal venous gas. There are scattered colonic diverticula without CT evid ence of acute diverticulitis. The appendix is well-visualized and normal. Peritoneum: There is no intraperitoneal free air or abdominal ascites. There is evidence of previous ventral hernia repair. A fat-containing supraumbilical hernia seen on image #177. Lymphadenopathy: None. Pelvic viscera: The bladder is normal as visualized. The uterus is diminutive versus surgically absen t. No adnexal lesion is seen. Skeletal structures: No lytic or blastic lesions are seen. IMPRESSION: 1. Suboptimal examination without oral and IV contrast. 2. Findings are consistent with a small bowel obstruction with a transition point in the right lower quadrant. This is likely on the basis of adhesions. 3. There is no intraperitoneal free air, pneumatosis intestinalis, or portal venous gas. No focally t hick walled bowel loops are identified. 4. Cholelithiasis. 5. Left-sided nephrolithiasis. 6. Additional findings as above. Electronically signed by: Bo Durand M.D. 04/14/2019 9:01 PM
[2019-04-14] MEDS ORDERED: ONDANSETRON INJ 2 MG/ML 2 ML VIAL IV PRN (23:29)
[2019-04-14] MEDS ORDERED: PIPERACILL/TAZOBAC CONSULT ACTIVE PRN (23:29)
[2019-04-14] MEDS ORDERED: PIPERACILLIN/TAZOBACTAM 4.5 GM/120 ML BAG IV ONE (23:29)
[2019-04-14] MEDS ORDERED: PROCHLORPERAZINE 10 MG in SYRINGE 8 ML IV PRN (23:29)
[2019-04-14] MEDS ORDERED: PATIENT'S HEIGHT AND/OR WEIGHT NEEDED SCH (23:45)
[2019-04-15] MEDS: NSS + 20MEQ KCL 20 MEQ/1,000 ML BAG IV SCH ×2 (00:29→10:10)
--- NOTE | 2019-04-15 01:13 | History & Physical Report ---
Date of Service April 15, 2019 The patient was seen and examine on 04/14/2019 Assessment & Plan (1) Bowel obstruction: Recurrent small bowel obstruction/intractable nausea vomiting and upper abdominal pain/history of sigmoid resection- Neutrophilic leukocytosis. Dehydration. Received 1 L of normal saline in the ED, will continue her 25 mL's per hour. NPO. Patient would prefer no NG tube at this time. Zofran 4 mg IV every 6 hours as needed. Compazine 10 mg IV every 6 hours as needed nausea not controlled by Zofran. Zosyn 4.5 g IV every 8 hours. Famotidine 20 mg IV every 12 hours Acetaminophen 1000 mg IV every 8 hours as needed pain or temperature. Minimize narcotics general surgery, Dr. Pearson aware Present on Admission?: Yes (2) Nausea and vomiting: See above Present on Admission?: Yes (3) Bilateral upper abdominal pain: See above Present on Admission?: Yes History of Present Illness Chief Complaint: The patient presents emergency department with the development at 2:00 this afternoon of constant severe abdominal pain with nausea and vomiting. Primary Care Provider: Aleksander Rodriguez DO The patient is a 53-year-old female with a past medical history including sigmoid resection, several bowel resections with adhesions. She reports that her most recent episode of bowel obstruction was able to be resolved conservatively with IV fluids and bowel rest. She reports that she has had to be transferred to [facility] in the past, due to the severity of her adhesions. Allergies Allergy/AdvReac Type Severity Reaction Status Date / Time codeine Allergy Mild CAN TAKE Verified 06/13/17 09:10 PERCOCET Codeine Derivatives Allergy Unknown Unknown Uncoded 04/14/19 20:38 Home Medications Home Medications Medication Instructions Recorded Confirmed Type amitriptyline 50 mg tablet 50 mg PO DAILY #30 tab 12/11/18 04/14/19 Rx atorvastatin 10 mg tablet 10 mg PO DAILY #30 tab 12/11/18 04/14/19 Rx epinephrine 0.3 mg/0.3 mL 0.3 mg IM Q20M PRN #1 ea 12/11/18 04/14/19 Rx injection, auto-injector levocetirizine 5 mg tablet 5 mg PO DAILY #30 tab 12/11/18 04/14/19 Rx multivitamin 1 tab PO DAILY #30 tab 12/11/18 04/14/19 Rx needle (disp) 25 gauge 25 gauge x #100 ea 12/11/18 12/11/18 Rx 5/8" omeprazole 20 mg capsule,delayed 20 mg PO DAILY #30 cap 12/11/18 04/14/19 Rx release sumatriptan succinate 25 mg tablet 25 mg PO ONCE PRN #1 tab 12/11/18 04/14/19 Rx water for injection, sterile 1 ml .ROUTE DAILY PRN #1 ml 12/11/18 04/14/19 Rx doxepin 10 mg capsule 10 mg PO HS #90 cap 02/27/19 04/14/19 Rx ascorbic acid (vitamin C) [Vitamin 500 mg PO DAILY 04/14/19 04/14/19 History C] bupropion HCl 150 mg PO BID 04/14/19 04/14/19 History cyanocobalamin (vitamin B-12) 500 mcg PO DAILY 04/14/19 04/14/19 History [Vitamin B-12] estradiol 1 patch TRANSDERMAL [id number] 04/14/19 04/14/19 History melatonin 30 mg PO HS PRN 04/14/19 04/14/19 History omalizumab [Xolair] 300 mg SQ MONTHLY 04/14/19 04/14/19 History ondansetron 4 mg PO DIRECTED PRN 04/14/19 04/14/19 History Past Med/Surg History Medical History History of hysterectomy History of hysteroscopy Salpingo-oophoritis Surgical History History of bilateral breast reduction surgery History of dilation and curettage History of exploratory laparotomy History of knee surgery History of tubal ligation Family History Father Pancreatic cancer Unknown Hypertension Social History Preferred Language: Slovak Communication Ability: Effective 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 Beliefs That Will Affect Care: None Current Living Situation: Spouse Feels Safe at Home: Yes Safety Concerns: Feels Safe At This Time Smoking Status: Never smoker Hx Alcohol Use: No Hx Substance Use: No Review of Systems Review of Systems: The patient denies chest pain, palpitations, shortness of breath, dyspnea on exertion, cough, lower extremity swelling, sore throat, fevers, chills, sweats, blood in urine or stool, dysuria, urinary frequency or urgency, lightheadedness, dizziness, headache, memory loss, loss of consciousness, rash, abnormal bruising or bleeding, imbalance, focal or generalized weakness, numbness or tingling in arms or legs, generalized arthralgias or myalgias, back or neck pain, or night sweats. The review of systems is otherwise negative other than for that already noted above, and at least 10 systems have been reviewed. Physical Exam Physical Exam: The patient is awake, alert and oriented 3, well developed and well nourished, normocephalic and atraumatic, lying in bed and in no acute distress. HEENT--PERRL, EOMI, mucous membranes and oropharynx dry. Neck--supple. No JVD. No bruits. Thyroid normal, trachea midline, no adenopathy. Heart--normal S1 and S2. No murmurs, rubs or gallops. Lungs--clear bilaterally, no respiratory distress, no accessory muscle use. Abdomen--firm, distended, few bowel sounds. Extremities--no cyanosis or clubbing. No edema. Dermatologic--normal skin turgor, normal color, no abnormal lymph nodes, no rash. Neurologic--cranial nerves II through XII grossly intact. Rheumatologic--normal range of motion. Psychiatric--normal affect. Results & Data Vital Signs (Past 12 Hours) Vital Signs Temp Pulse Pulse Resp BP BP Pulse Ox 04/14/19 23:35 81 18 157/101 H 100 04/14/19 23:09 88 16 155/83 H 96 04/14/19 22:41 85 18 146/87 H 97 04/14/19 21:30 89 16 94 04/14/19 21:29 90 16 156/99 H 95 04/14/19 21:02 82 14 100 04/14/19 21:01 86 21 99 04/14/19 21:00 85 17 98 04/14/19 20:36 87 19 98 04/14/19 20:10 96 04/14/19 20:01 94 H 20 100 04/14/19 20:00 103 H 20 154/100 H 99 04/14/19 19:50 83 17 143/88 H 100 04/14/19 19:41 93 H 22 99 04/14/19 19:38 100 H 19 173/100 H 100 04/14/19 19:26 97.5 F L 112 H 24 175/118 H 100 Laboratory Results Laboratory Results WBC 12.68 K/uL (4.8-10.8) H 04/14/19 19:40 RBC 5.15 M/uL (4.2-5.4) 04/14/19 19:40 Hgb 16.4 g/dL (12.0-16.0) H 04/14/19 19:40 Hct 46.5 % (37-47) 04/14/19 19:40 MCV 90.3 fL (80-100) 04/14/19 19:40 MCH 31.8 pg (25-34) 04/14/19 19:40 MCHC 35.3 g/dL (32-36) 04/14/19 19:40 RDW Std Deviation 42.8 fL (36.4-46.3) 04/14/19 19:40 RDW Coeff of Moe 13.0 % (11.5-14.5) 04/14/19 19:40 Plt Count 350 K/uL (130-400) 04/14/19 19:40 MPV 9.4 fL (7.4-10.4) 04/14/19 19:40 Immature Gran % (Auto) 0.4 % 04/14/19 19:40 Neut % (Auto) 71.7 % 04/14/19 19:40 Lymph % (Auto) 20.1 % 04/14/19 19:40 [place] % (Auto) 6.3 % 04/14/19 19:40 Eos % (Auto) 1.3 % 04/14/19 19:40 Baso % (Auto) 0.2 % 04/14/19 19:40 Immature Gran # (Auto) 0.05 K/uL (0.00-0.02) H 04/14/19 19:40 Neut # (Auto) 9.09 K/uL (1.4-6.5) H 04/14/19 19:40 Lymph # (Auto) 2.55 K/uL (1.2-3.4) 04/14/19 19:40 [place] # (Auto) 0.80 K/uL (0.11-0.59) H 04/14/19 19:40 Eos # (Auto) 0.16 K/uL (0-0.5) 04/14/19 19:40 Baso # (Auto) 0.03 K/uL (0-0.2) 04/14/19 19:40 Sodium 135 mmol/L (136-145) L 04/14/19 19:40 Potassium 3.5 mmol/L (3.5-5.1) 04/14/19 19:40 Chloride 103 mmol/L (98-107) 04/14/19 19:40 Carbon Dioxide 23 mmol/L (21-32) 04/14/19 19:40 Anion Gap 10.0 (3-11) 04/14/19 19:40 BUN 19 mg/dl (7-18) H 04/14/19 19:40 Creatinine 1.12 mg/dl (0.6-1.2) 04/14/19 19:40 Est Cr Clr Drug Dosing Not Reportable 04/14/19 19:40 Est GFR ( Amer) 64.9 04/14/19 19:40 Est GFR (Non-Af Amer) 56.0 04/14/19 19:40 BUN/Creatinine Ratio 16.7 (10-20) 04/14/19 19:40 Glucose 105 mg/dl (70-99) H 04/14/19 19:40 Calcium 10.1 mg/dl (8.5-10.1) 04/14/19 19:40 Total Bilirubin 0.5 mg/dl (0.2-1) 04/14/19 19:40 AST 30 U/L (15-37) 04/14/19 19:40 ALT 40 U/L (12-78) 04/14/19 19:40 Alkaline Phosphatase 117 U/L (45-117) 04/14/19 19:40 Total Protein 8.4 gm/dl (6.4-8.2) H 04/14/19 19:40 Albumin 4.2 gm/dl (3.4-5.0) 04/14/19 19:40 Globulin 4.2 gm/dl (2.5-4.0) H 04/14/19 19:40 Albumin/Globulin Ratio 1.0 (0.9-2) 04/14/19 19:40 Lipase 188 U/L (73-393) 04/14/19 19:40 Urine Color Yellow 04/14/19 19:40 Urine Appearance Clear (Clear) 04/14/19 19:40 Urine pH >= 9.0 (4.5-7.5) H 04/14/19 19:40 Ur Specific [place] 1.009 (1.000-1.030) 04/14/19 19:40 Urine Protein Negative (Negative) 04/14/19 19:40 Urine Glucose (UA) Negative (Negative) 04/14/19 19:40 Urine Ketones Negative (Negative) 04/14/19 19:40 Urine Blood Negative (Negative) 04/14/19 19:40 Urine Nitrite Negative (Negative) 04/14/19 19:40 Urine Bilirubin Negative (Negative) 04/14/19 19:40 Urine Urobilinogen Negative (Negative) 04/14/19 19:40 Ur Leukocyte Esterase Negative (Negative) 04/14/19 19:40 Diagnostic Findings [place], [place] [phone] CT Scan Report Patient: SWATI LNY Date: 04/14/19 MR#: [id number] [address] [place] Acct ID:[id number]: Date: 1965[facility] Zip: [place] [address] Age: 53Location: ED Sex: F Room/Bed: Att Phy:Diagnosis: SEVERE ABDOMINAL PAIN Linda Phy: Aleksander Rodriguez,DChaiOChaiService Date: 04/14/19 Fam Phy:Interpreting Phy: Bo Durand MD Admit Phy: Ordering Phy: Lionel Croft MD cc: ~ CT SCAN OF THE ABDOMEN AND PELVIS WITHOUT IV CONTRAST CLINICAL HISTORY: Generalized abdominal pain. COMPARISON STUDY: Abdominal CT dated 06/13/2017. TECHNIQUE: CT scan of the abdomen and pelvis is performed from the lung bases to the proximal femora. Images are reviewed in the axial, sagittal, and coronal planes. IV contrast was not administered for this examination as per the referring clinician. Note that the examination was performed in significantly suboptimal fashion without oral and IV contrast. A dose lowering technique was utilized adhering to the principles of ALARA. CT DOSE: 660.67 mGy.cm FINDINGS: Lung bases: The heart is normal in size and without pericardial effusion. The lung bases are clear. Liver: The unenhanced liver is normal in size, contour, and attenuation. There is no intrahepatic biliary ductal dilatation. Gallbladder: There are numerous layering calcified gallstones, with no CT evidence of acute cholecystitis. Spleen: Normal in size and attenuation. Pancreas: The unenhanced pancreas is grossly unremarkable. Adrenal glands: Unremarkable. Kidneys: The unenhanced kidneys demonstrate cortical atrophy and are without hydronephrosis. There is a 2 mm nonobstructing calculus in the upper pole of the left kidney. No right renal calculi are identified. There is no evidence of contour deforming renal mass lesion. Abdominal vasculature: The abdominal aorta is normal in course and caliber. Bowel: There is postoperative change from sigmoid colon resection with colocolonic anastomosis. A small bowel anastomosis present in the lower abdomen. The proximal small bowel loops are distended and fluid-filled measuring up to 3.6 cm in diameter. There is a transition point identified in the right lower quadrant image #294. The distal small bowel and colon are decompressed and the appearance is consistent with a small bowel obstruction. No focally thick walled bowel loops identified. There is no pneumatosis intestinalis or portal venous gas. There are scattered colonic diverticula without CT evidence of acute diverticulitis. The appendix is well-visualized and normal. Peritoneum: There is no intraperitoneal free air or abdominal ascites. There is evidence of previous ventral hernia repair. A fat-containing supraumbilical hernia seen on image #177. Lymphadenopathy: None. Pelvic viscera: The bladder is normal as visualized. The uterus is diminutive versus surgically absent. No adnexal lesion is seen. Skeletal structures: No lytic or blastic lesions are seen. IMPRESSION: 1. Suboptimal examination without oral and IV contrast. 2. Findings are consistent with a small bowel obstruction with a transition point in the right lower quadrant. This is likely on the basis of adhesions. 3. There is no intraperitoneal free air, pneumatosis intestinalis, or portal venous gas. No focally thick walled bowel loops are identified. 4. Cholelithiasis. 5. Left-sided nephrolithiasis. 6. Additional findings as above. Electronically signed by: Bo Durand M.D. 04/14/2019 9:01 PM Dictated: 04/14/192054 Transcribed: 04/14/192054 Code Status & VTE Plan Code Status Full code VTE Prophylaxis Plan VTE Prophylaxis will be ordered: Yes PG Care Time/CCT Total # of Minutes Spent Total Time Spent with Patient: Total time spent is greater than 50% in coordination of care (as documented) at patient's floor/unit and/or counseling patient: (1) Bowel obstruction Intestinal obstruction extent: unspecified extent Intestinal obstruction type: unspecified Qualified Code(s): K56.609 - Unspecified intestinal obstruction, unspecified as to partial versus complete obstruction
[2019-04-15] MEDS ORDERED: KETOROLAC TROMETHAMINE 15 MG/ML VIAL IV PRN (01:25)
--- NOTE | 2019-04-15 01:55 | Emergency Department Note ---
Entered by Shubham Blakely acting as a scribe for ED Provider Note CHIEF COMPLAINT: Abdominal pain HISTORY OF PRESENT ILLNESS: The patient is a 53 year old female who presents to the Emergency Room with complaints of constant, severe, abdominal pain beginning 6 hours ago. The patient states she has a history of several bowel obstruction with a lot of adhesions. She reports she normally has an ileus and NG tube. The patient notes it feels like she is in labor with intermittent 10/10 abdominal pains. She states she has been evaluated here for her bowel obstructions and then transferred to [place]. The patient reports she is not always transferred because she can sometimes lay flat and then have it pass on its own. She notes she also has a hernia that she had surgery for in [place]. The patient states the surgeons could not get to her hernia because of her adhesions. She reports the last time she had an obstruction, she was given a large amount of fluids, and it pushed through on its own. Pt denies LOC, headache, fevers, chills, diaphoresis, visual changes, neck pain, chest pain, breathing difficulties, nausea, vomiting, back pain, melena, hematochezia, urinary symptoms, numbness, weakness, lymphadenopathy, rash, or other complaints. REVIEW OF SYSTEMS: See HPI for pertinent positives and negatives. A total of ten systems were reviewed and were otherwise negative. PMHx/PSHx: Bowel obstruction, depression, obesity SOCIAL HISTORY: Patient lives at home. PHYSICAL EXAM: GENERAL: Awake, alert, very uncomfortable-appearing, in severe distress HENT: Normocephalic, atraumatic. Oropharynx unremarkable. EYES: PERRL. Normal conjunctiva. Sclera non-icteric. NECK: Inspection normal. Non-tender. Supple. No nuchal rigidity. FROM. No masses. RESPIRATORY: Clear to auscultation. No wheezes. No rales. Normal respiratory effort. CARDIAC: Normal rate. Normal rhythm. No murmurs. No rubs. Extremities warm and well perfused. Pulses equal. No JVD. GI: Soft, non-distended. Mild left upper and epigastric tenderness to palpation. No rebound or guarding. No masses. RECTAL: Deferred. MUSCULOSKELETAL: Atraumatic. Chest examination reveals no tenderness. The back is symmetrical on inspection without obvious abnormality. There is no CVA tenderness to palpation. No joint edema. LOWER EXTREMITIES: Calves are equal size bilaterally and non-tender. No edema. No discoloration. NEURO: Normal sensorium. No sensory or motor deficits noted. SKIN: No rash or jaundice noted. EMERGENCY DEPARTMENT COURSE: 1956: The patient was evaluated in room B06, and a complete history and physical examination were performed. 2104: I paged General surgery 2105: I discussed the patient's case with Dr. Pearson, General Surgery. He will be on consult after a hospitalist consult. 2107: I paged [facility] Hospitalist. 2112: Upon reevaluation, the patient is resting comfortably after the second shot of pain medication. She is stable. I discussed laboratory and radiographic results with her. She verbalized agreement of the treatment plan. The patient will be evaluated for further management and care. 2122: I reviewed the patient's case with Dr. Ibarra, [facility] Hospitalist. He will evaluate the patient for further management. MEDICAL DECISION MAKING: Prior records/ancillary studies reviewed. Triage Nursing notes reviewed and agree them. Additional history obtained from the . The patient's history was concerning for abdominal pain. Differential diagnosis: Etiologies such as obstruction, appendicitis, diverticulitis, PUD, biliary pathology, UTI, pancreatitis, mesenteric ischemia, aortic pathology, infections, inflammatory bowel disease, renal colic, as well as others were entertained. Physical examination findings: As above. ER treatment provided: IV normal saline IV Zofran x2 IV Dilaudid x2 On reassessment the patient felt better. Diagnostics interpreted by me: The labs revealed a mild leukocytosis on CBC. Chemistry panel LFTs and lipase were all negative. Urinalysis negative. Imaging studies: CT scan of the abdomen pelvis was performed and revealed a bowel obstruction with transition point in the right lower quadrant. Radiology suspected adhesions. Consultation: A consultation was placed with the general surgeon on-call, Dr. Pearson. The case was discussed. As the patient has symptom control without nausea and no stomach distention he recommended conservative management. The patient would like to hold off on NG tube placement at this point in time. A consultation was placed with internal medicine, Dr. Mitesh Ibarra.. The case was discussed and diagnostics were reviewed. The patient was evaluated in the ER for further treatment. IMPRESSION: Bowel Obstruction Upper abdominal pain PLAN: Admitted The scribe's documentation has been prepared under my direction and personally reviewed by me in its entirety. I confirm that the note above accurately reflects all work, treatment, procedures, and medical decision making performed by me. Impression & Plan Bowel obstruction, Bilateral upper abdominal pain Past Med/Surg History Medical History History of hysterectomy History of hysteroscopy Salpingo-oophoritis Surgical History History of bilateral breast reduction surgery History of dilation and curettage History of exploratory laparotomy History of knee surgery History of tubal ligation Family History Father Pancreatic cancer Unknown Hypertension Social History Preferred Language: Panamanian Communication Ability: Effective Photography Colorist Required: No Beliefs That Will Affect Care: None Current Living Situation: Spouse Feels Safe at Home: Yes Safety Concerns: Feels Safe At This Time Smoking Status: Never smoker Hx Alcohol Use: No Hx Substance Use: No Results & Data Vital Signs Vital Signs - 24 hr 04/14/19 19:26 04/14/19 19:38 04/14/19 19:41 Temperature 36.4 C L Temperature Source Oral Pulse Rate 112 H 100 H 93 H Pulse Rate from SpO2 Sensor 102 H 100 H Respiratory Rate 24 19 22 Respiratory Effort / Characteristics Non-Labored Spontaneous Respiratory Depth Normal Respiratory Pattern Regular Blood Pressure 175/118 H 173/100 H Blood Pressure Mean 137 130 Blood Pressure Position Sitting Pulse Oximetry 100 100 99 Oxygen Delivery Method Room Air Sepsis Recent Fever Within 48 Hours No Sepsis Action Taken by Nursing No Action Required 04/14/19 19:50 04/14/19 20:00 04/14/19 20:01 Temperature Temperature Source Pulse Rate 83 103 H 94 H Pulse Rate from SpO2 Sensor 87 100 H 94 H Respiratory Rate 17 20 20 Respiratory Effort / Characteristics Respiratory Depth Respiratory Pattern Blood Pressure 143/88 H 154/100 H Blood Pressure Mean 101 116 Blood Pressure Position Pulse Oximetry 100 99 100 Oxygen Delivery Method Sepsis Recent Fever Within 48 Hours Sepsis Action Taken by Nursing 04/14/19 20:10 04/14/19 20:36 04/14/19 21:00 Temperature Temperature Source Pulse Rate 87 85 Pulse Rate from SpO2 Sensor 88 86 Respiratory Rate 19 17 Respiratory Effort / Characteristics Respiratory Depth Respiratory Pattern Blood Pressure Blood Pressure Mean Blood Pressure Position Pulse Oximetry 96 98 98 Oxygen Delivery Method Room Air Sepsis Recent Fever Within 48 Hours Sepsis Action Taken by Nursing 04/14/19 21:01 04/14/19 21:02 04/14/19 21:29 Temperature Temperature Source Pulse Rate 86 82 90 Pulse Rate from SpO2 Sensor 86 81 93 H Respiratory Rate 21 14 16 Respiratory Effort / Characteristics Respiratory Depth Respiratory Pattern Blood Pressure 156/99 H Blood Pressure Mean 102 108 Blood Pressure Position Pulse Oximetry 99 100 95 Oxygen Delivery Method Sepsis Recent Fever Within 48 Hours Sepsis Action Taken by Nursing 04/14/19 21:30 Temperature Temperature Source Pulse Rate 89 Pulse Rate from SpO2 Sensor 88 Respiratory Rate 16 Respiratory Effort / Characteristics Respiratory Depth Respiratory Pattern Blood Pressure Blood Pressure Mean Blood Pressure Position Pulse Oximetry 94 Oxygen Delivery Method Sepsis Recent Fever Within 48 Hours Sepsis Action Taken by Group Home Medications Current Medication List: was personally reviewed by me Laboratory Data Attestation: I reviewed the patient's lab results. Result diagrams: 04/14/19 19:40 04/14/19 19:40 Lab Results 04/14/19 04/14/19 04/14/19 Range/Units 19:40 19:40 19:40 WBC 12.68 H (4.8-10.8) K/uL RBC 5.15 (4.2-5.4) M/uL Hgb 16.4 H (12.0-16.0) g/dL Hct 46.5 (37-47) % MCV 90.3 (80-100) fL MCH 31.8 (25-34) pg MCHC 35.3 (32-36) g/dL RDW Std Deviation 42.8 (36.4-46.3) fL RDW Coeff of Moe 13.0 (11.5-14.5) % Plt Count 350 (130-400) K/uL MPV 9.4 (7.4-10.4) fL Immature Gran % (Auto) 0.4 % Neut % (Auto) 71.7 % Lymph % (Auto) 20.1 % [place] % (Auto) 6.3 % Eos % (Auto) 1.3 % Baso % (Auto) 0.2 % Immature Gran # (Auto) 0.05 H (0.00-0.02) K/uL Neut # (Auto) 9.09 H (1.4-6.5) K/uL Lymph # (Auto) 2.55 (1.2-3.4) K/uL [place] # (Auto) 0.80 H (0.11-0.59) K/uL Eos # (Auto) 0.16 (0-0.5) K/uL Baso # (Auto) 0.03 (0-0.2) K/uL Sodium 135 L (136-145) mmol/L Potassium 3.5 (3.5-5.1) mmol/L Chloride 103 (98-107) mmol/L Carbon Dioxide 23 (21-32) mmol/L Anion Gap 10.0 (3-11) BUN 19 H (7-18) mg/dl Creatinine 1.12 (0.6-1.2) mg/dl Est Cr Clr Drug Dosing Not Reportable Est GFR ( Amer) 64.9 Est GFR (Non-Af Amer) 56.0 BUN/Creatinine Ratio 16.7 (10-20) Glucose 105 H (70-99) mg/dl Calcium 10.1 (8.5-10.1) mg/dl Total Bilirubin 0.5 (0.2-1) mg/dl AST 30 (15-37) U/L ALT 40 (12-78) U/L Alkaline Phosphatase 117 (45-117) U/L Total Protein 8.4 H (6.4-8.2) gm/dl Albumin 4.2 (3.4-5.0) gm/dl Globulin 4.2 H (2.5-4.0) gm/dl Albumin/Globulin Ratio 1.0 (0.9-2) Lipase 188 (73-393) U/L Urine Color Yellow Urine Appearance Clear (Clear) Urine pH >= 9.0 H (4.5-7.5) Ur Specific [place] 1.009 (1.000-1.030) Urine Protein Negative (Negative) Urine Glucose (UA) Negative (Negative) Urine Ketones Negative (Negative) Urine Blood Negative (Negative) Urine Nitrite Negative (Negative) Urine Bilirubin Negative (Negative) Urine Urobilinogen Negative (Negative) Ur Leukocyte Esterase Negative (Negative) Administered Medications Prochlorperazine 10 mg/ (Syringe) 10 mls @ 5 mls/min IV Q6H PRN PRN Reason: Nausea And Vomiting Stop: 05/14/19 23:28 Last Admin: 04/15/19 00:30 Dose: 5 mls/min Documented by: [id number] Potassium Chloride/Sodium Chloride (Normal Saline W/20 Meq Kcl) 20 meq in 1,000 mls @ 100 mls/hr IV .Q10H MARISOL Stop: 05/14/19 23:28 Last Admin: 04/15/19 00:29 Dose: 100 mls/hr Documented by: [id number] Ketorolac Tromethamine (Toradol) 15 mg IV Q6H PRN PRN Reason: Pain Stop: 04/20/19 01:24 Last Admin: 04/15/19 01:41 Dose: 15 mg Documented by: [id number] Discontinued Medications Hydromorphone HCl (Dilaudid) 0.5 mg IV Q15M PRN PRN Reason: Pain Stop: 04/28/19 19:58 Last Admin: 04/14/19 21:02 Dose: 0.5 mg Documented by: [id number] Admin: 04/14/19 20:06 Dose: 0.5 mg Documented by: [id number] Sodium Chloride (Nss 1000ml) 1,000 mls @ 125 mls/hr IV .Q8H STA Stop: 04/15/19 03:58 Last Admin: 04/14/19 21:04 Dose: 125 mls/hr Documented by: [id number] Sodium Chloride (Nss 1000ml) 500 mls @ 999 mls/hr IV .Q31M ONE Stop: 04/14/19 20:29 Last Infusion: 04/14/19 20:38 Dose: 0 mls/hr Documented by: [id number] Admin: 04/14/19 20:06 Dose: 999 mls/hr Documented by: [id number] Piperacillin Sod/Tazobactam Sod (Zosyn) 4.5 gm in 120 mls @ 240 mls/hr IV ONE O NE Stop: 04/14/19 23:58 Last Infusion: 04/15/19 01:09 Dose: 0 mls/hr Documented by: [id number] Admin: 04/15/19 00:39 Dose: 240 mls/hr Documented by: [id number] Ondansetron HCl (Zofran) 4 mg IV NOW STA Stop: 04/14/19 20:00 Last Admin: 04/14/19 20:06 Dose: 4 mg Documented by: [id number] Ondansetron HCl (Zofran) 4 mg IV NOW STA Stop: 04/14/19 21:49 Last Admin: 04/14/19 21:51 Dose: 4 mg Documented by: [id number] Imaging Data Radiologist's Impression: Radiology results as stated below per my review and the radiologist's interpretation: CT SCAN OF THE ABDOMEN AND PELVIS WITHOUT IV CONTRAST CLINICAL HISTORY: Generalized abdominal pain. COMPARISON STUDY: Abdominal CT dated 06/13/2017. TECHNIQUE: CT scan of the abdomen and pelvis is performed from the lung bases to the proximal femora. Images are reviewed in the axial, sagittal, and coronal planes. IV contrast was not administered for this examination as per the referring clinician. Note that the examination was performed in significantly suboptimal fashion without oral and IV contrast. A dose lowering technique was utilized adhering to the principles of ALARA. CT DOSE: 660.67 mGy.cm FINDINGS: Lung bases: The heart is normal in size and without pericardial effusion. The lung bases are clear. Liver: The unenhanced liver is normal in size, contour, and attenuation. There is no intrahepatic biliary ductal dilatation. Gallbladder: There are numerous layering calcified gallstones, with no CT evidence of acute cholecystitis. Spleen: Normal in size and attenuation. Pancreas: The unenhanced pancreas is grossly unremarkable. Adrenal glands: Unremarkable. Kidneys: The unenhanced kidneys demonstrate cortical atrophy and are without hydronephrosis. There is a 2 mm nonobstructing calculus in the upper pole of the left kidney. No right renal calculi are identified. There is no evidence of contour deforming renal mass lesion. Abdominal vasculature: The abdominal aorta is normal in course and caliber. Bowel: There is postoperative change from sigmoid colon resection with colocolo natalia anastomosis. A small bowel anastomosis present in the lower abdomen. The proximal small bowel loops are distended and fluid-filled measuring up to 3.6 cm in diameter. There is a transition point identified in the right lower quadrant image #294. The distal small bowel and colon are decompressed and the appearance is consistent with a small bowel obstruction. No focally thick walled bowel loops identified. There is no pneumatosis intestinalis or portal venous gas. There are scattered colonic diverticula without CT evidence of acute diverticulitis. The appendix is well-visualized and normal. Peritoneum: There is no intraperitoneal free air or abdominal ascites. There is evidence of previous ventral hernia repair. A fat-containing supraumbilical hernia seen on image #177. Lymphadenopathy: None. Pelvic viscera: The bladder is normal as visualized. The uterus is diminutive versus surgically absent. No adnexal lesion is seen. Skeletal structures: No lytic or blastic lesions are seen. IMPRESSION: 1. Suboptimal examination without oral and IV contrast. 2. Findings are consistent with a small bowel obstruction with a transition point in the right lower quadrant. This is likely on the basis of adhesions. 3. There is no intraperitoneal free air, pneumatosis intestinalis, or portal venous gas. No focally thick walled bowel loops are identified. 4. Cholelithiasis. 5. Left-sided nephrolithiasis. 6. Additional findings as above. Electronically signed by: Bo Durand M.D. 04/14/2019 9:01 PM ECG Data Attestation: I personally reviewed and interpreted this ECG as follows: Indication: + abdominal pain and + tachycardia Rate (beats per minute): 102 Rhythm: sinus tachycardia ECG Intervals/blocks: + Normal QRS ECG [place]: + Normal ECG ST segments: no ST depression and no ST elevation ECG Findings: + Other (nonspecific ST abn); no PACs and no PVCs Blood Pressure Blood Pressure Findings: Elevated blood pressure Blood Pressure Disposition: further management by hospitalist Discharge Plan Visit Data *Final* Discharge Date/Time: 04/14/19 23:18 Chief Complaint: Abdominal Pain Stated Complaint: SEVERE ABDOMINAL PAIN ED Provider: Lionel Croft Discharge Problem: Bowel obstruction, Bilateral upper abdominal pain Patient Disposition: Admitted As Inpatient Discharge Instructions Interventions: ED Discharge Assessment Last Done: 04/14/19 23:18 Discharge Problem: Bowel obstruction Qualifiers: Intestinal obstruction type: unspecified Intestinal obstruction extent: unspecified extent Qualified Code(s): K56.609 - Unspecified intestinal obstruction, unspecified as to partial versus complete obstruction The scribe's documentation has been prepared under my direction and personally reviewed by me in its entirety. I confirm that the note above accurately reflects all work, treatment, procedures, and medical decision making performed by me.
[2019-04-15] MEDS ORDERED: ACETAMINOPHEN 1,000 MG/100 ML VIAL IV PRN (03:43)
[2019-04-15] MEDS ORDERED: PIPERACILLIN/TAZOBACTAM 3.375 GM in DEXTROSE 5% 100 ML IV SCH (06:00)
--- NOTE | 2019-04-15 08:09 | Surgery Consultation ---
Date of Consultation April 15, 2019 Assessment & Plan (1) Bowel obstruction: Recurrent PSBO, improving can start clears, advance later as juanjose as above. feeling much better already. +BM. pain and nausea resolved already. tolerating liquids no indication for surgery. will continue to follow along. d/c planning. History of Present Illness Attending Physician: Quinton Valenzuela DO History of Present Illness 53 y/o female with history of colon resection and multiple procedures for obstructions now with pain, N/V x1 that began yesterday around 2 PM. Had toast a t lunch. Admitted overnight, this AM symptoms have resolved, she is having flatus and had a BM. Last admission for SBO was 2 years ago. Allergies Allergy/AdvReac Type Severity Reaction Status Date / Time codeine Allergy Mild CAN TAKE Verified 06/13/17 09:10 PERCOCET Codeine Derivatives Allergy Unknown Unknown Uncoded 04/14/19 20:38 Home Medications Home Medications Medication Instructions Recorded Confirmed Type amitriptyline 50 mg tablet 50 mg PO DAILY #30 tab 12/11/18 04/14/19 Rx atorvastatin 10 mg tablet 10 mg PO DAILY #30 tab 12/11/18 04/14/19 Rx epinephrine 0.3 mg/0.3 mL 0.3 mg IM Q20M PRN #1 ea 12/11/18 04/14/19 Rx injection, auto-injector levocetirizine 5 mg tablet 5 mg PO DAILY #30 tab 12/11/18 04/14/19 Rx multivitamin 1 tab PO DAILY #30 tab 12/11/18 04/14/19 Rx needle (disp) 25 gauge 25 gauge x #100 ea 12/11/18 12/11/18 Rx 5/8" omeprazole 20 mg capsule,delayed 20 mg PO DAILY #30 cap 12/11/18 04/14/19 Rx release sumatriptan succinate 25 mg tablet 25 mg PO ONCE PRN #1 tab 12/11/18 04/14/19 Rx water for injection, sterile 1 ml .ROUTE DAILY PRN #1 ml 12/11/18 04/14/19 Rx doxepin 10 mg capsule 10 mg PO HS #90 cap 02/27/19 04/14/19 Rx ascorbic acid (vitamin C) [Vitamin 500 mg PO DAILY 04/14/19 04/14/19 History C] bupropion HCl 150 mg PO BID 04/14/19 04/14/19 History cyanocobalamin (vitamin B-12) 500 mcg PO DAILY 04/14/19 04/14/19 History [Vitamin B-12] estradiol 1 patch TRANSDERMAL [id number] 04/14/19 04/14/19 History melatonin 30 mg PO HS PRN 04/14/19 04/14/19 History omalizumab [Xolair] 300 mg SQ MONTHLY 04/14/19 04/14/19 History ondansetron 4 mg PO DIRECTED PRN 04/14/19 04/14/19 History Patient History Medical History History of hysterectomy History of hysteroscopy Salpingo-oophoritis Surgical History History of bilateral breast reduction surgery History of dilation and curettage History of exploratory laparotomy History of knee surgery History of tubal ligation Family History Father Pancreatic cancer Unknown Hypertension Social History Preferred Language: Bangladeshi Communication Ability: Effective Harp Repairer Required: No Beliefs That Will Affect Care: None marital status: Current Living Situation: Spouse Feels Safe at Home: Yes Safety Concerns: Feels Safe At This Time Smoking Status: Never smoker Hx Alcohol Use: No Hx Substance Use: No Review of Systems Constitutional: no fever and no chills Gastrointestinal: + abdominal pain, + nausea and + vomiting; no heartburn Physical Exam Constitutional: WD/WN, vitals as above Respiratory: normal respiratory effort, lungs clear to auscultation Cardiovascular: RRR, no murmur, no edema Gastrointestinal (Abdomen): Inspection/Auscultation: abdomen not distended Percussion/Palpation: abdomen soft; abdomen nontender Results & Data Vital Signs (Past 12 Hours) Vital Signs Temp Pulse Pulse Pulse Resp BP BP 04/15/19 07:53 36.7 C 106 H 20 119/77 04/14/19 23:35 81 18 04/14/19 23:09 88 16 04/14/19 22:41 85 18 04/14/19 21:30 89 16 04/14/19 21:29 90 16 156/99 H 04/14/19 21:02 82 14 04/14/19 21:01 86 21 04/14/19 21:00 85 17 04/14/19 20:36 87 19 04/14/19 20:10 BP Pulse Ox 04/15/19 07:53 96 04/14/19 23:35 157/101 H 100 04/14/19 23:09 155/83 H 96 04/14/19 22:41 146/87 H 97 04/14/19 21:30 94 04/14/19 21:29 95 04/14/19 21:02 100 04/14/19 21:01 99 04/14/19 21:00 98 04/14/19 20:36 98 04/14/19 20:10 96 PG Care Time/CCT Total # of Minutes Spent Total Time Spent with Patient: Total time spent is greater than 50% in coordination of care (as documented) at patient's floor/unit and/or counseling patient: (1) Bowel obstruction Intestinal obstruction extent: unspecified extent Intestinal obstruction type: unspecified Qualified Code(s): K56.609 - Unspecified intestinal obstruction, unspecified as to partial versus complete obstruction
[2019-04-15] MEDS ORDERED: FAMOTIDINE 20 MG in SYRINGE 3 ML IV SCH (09:00)
[2019-04-15] MEDS ORDERED: INFLUENZA VIRUS QUAD VACCINE 0.5 ML SYR IM ONE (09:15)
[2019-04-15] MEDS ORDERED: INFLUENZA ADMINISTRATION CHARGE ONE (09:15)
[2019-04-15] MEDS ORDERED: AMITRIPTYLINE HCL 50 MG TAB PO SCH (10:45)
[2019-04-15] MEDS ORDERED: PANTOprazole 40 MG TAB PO SCH (10:45)
--- NOTE | 2019-04-15 15:32 | Discharge Summary ---
Date of Service April 15, 2019 Admission HPI Per Admitting Provider The patient is a 53-year-old female with a past medical history including sigmoid resection, several bowel resections with adhesions. She reports that her most recent episode of bowel obstruction was able to be resolved conservatively with IV fluids and bowel rest. She reports that she has had to be transferred to [facility] in the past, due to the severity of her adhesions. Admission Exam Per Admitting Provider The patient is awake, alert and oriented 3, well developed and well nourished, normocephalic and atraumatic, lying in bed and in no acute distress. HEENT--PERRL, EOMI, mucous membranes and oropharynx dry. Neck--supple. No JVD. No bruits. Thyroid normal, trachea midline, no adenopathy. Heart--normal S1 and S2. No murmurs, rubs or gallops. Lungs--clear bilaterally, no respiratory distress, no accessory muscle use. Abdomen--firm, distended, few bowel sounds. Extremities--no cyanosis or clubbing. No edema. Dermatologic--normal skin turgor, normal color, no abnormal lymph nodes, no rash. Neurologic--cranial nerves II through XII grossly intact. Rheumatologic--normal range of motion. Psychiatric--normal affect. Principal Diagnosis SBO Discharge Exam Constitutional WD/WN, vitals as above cooperative and comfortable Respiratory normal respiratory effort, lungs clear to auscultation Cardiovascular RRR, no murmur, no edema Gastrointestinal (Abdomen) Percussion/Palpation: abdomen soft; abdomen nontender, no guarding and abdomen not rigid Skin no rashes, warm and dry Psychiatric A+Ox3, euthymic affect Discharge Data Allergies Allergy/AdvReac Type Severity Reaction Status Date / Time codeine Allergy Mild CAN TAKE Verified 06/13/17 09:10 PERCOCET Codeine Derivatives Allergy Unknown Unknown Uncoded 04/14/19 20:38 Consultations 04/14/19 21:31 ED Decision to Admit Stat 04/14/19 23:29 Consult Case Management - Discharge Planning Routine Consult General Surgery Routine Ordered Studies 04/14/19 19:59 CT abd pelvis wo con Stat Hospital Course (1) Bowel obstruction: Ms. Barnes is a 53-year-old female with a past medical history of sigmoid resection, several bowel obstructions secondary to adhesions, depression, hypercholesterolemia, GERD and migraines who was admitted to [facility] due to abdominal pain, nausea and vomiting. Small Bowel Obstruction -CT abdomen and pelvis demonstrated a "small bowel obstruction with a transition point in the right lower quadrant, likely secondary to adhesions" -treated conservatively with bowel rest, IVF, analgesia and anti-emetics -seen by general surgery team who did not feel surgical intervention was necessary -tolerated regular diet prior to d/c -f/u with PCP No changes were made to her medications for her chronic medical problems, including her depression, hypercholesterolemia, migraines, and hormone replacement therapy. (2) Nausea and vomiting: (3) Depression: (4) Migraines: (5) Postmenopausal HRT (hormone replacement therapy): Total Time Total Time Spent Total Time Spent (In Minutes): <30 Discharge Plan Discharge Items Patient Disposition: Home - Self-Care Reason For Visit: SBO Discharge Diagnosis: Small Bowel Obstruction Activity: Resume your previous activity Non-emergency contact: Primary Care Provider Call non-emergency contact if: you have any medication questions and your symptoms worsen Follow-up/Referrals: Aleksander Rodriguez DO [Primary Care Provider] - Diet: Regular Addtl Attending Provider Instructions: Ms. Barnes, you were admitted to [facility] due to a small bowel obstruction. Thankfully, you responded well to conservative treatment, and are safe for discharge. You were also seen by our surgical team, who did not feel any surgical intervention was warranted. Please continue your home medications as prescribed. If you have worsening abdominal pain, fever, chills, or are unable to keep food down, please seek medical attention. Pending Studies at Discharge: No Stand-Alone Forms: Call Back Authorization, My [facility], Smoking Cessation Medications and DC Order Prescriptions: Continued doxepin 10 mg capsule 10 mg PO HS Qty: 90 RF: 3 (DME) BD Regular [place]vel [place] 25 gauge x 5/8" needle See Dose Instructions .ROUTE .MEDSUPPLY Qty: 100 RF: 0 amitriptyline 50 mg tablet 50 mg PO DAILY Qty: 30 RF: 2 epinephrine [EpiPen] 0.3 mg/0.3 mL auto-injector 0.3 mg IM Q20M PRN (Reason: anaphylaxis) Qty: 1 RF: 0 sumatriptan succinate [Imitrex] 25 mg tablet 25 mg PO ONCE PRN (Reason: migraine headache) Qty: 1 RF: 0 atorvastatin [Lipitor] 10 mg tablet 10 mg PO DAILY Qty: 30 RF: 2 multivitamin [Daily Multi-Vitamin] tablet 1 tab PO DAILY Qty: 30 RF: 0 omeprazole 20 mg capsule,delayed release(DR/EC) 20 mg PO DAILY Qty: 30 RF: 2 water for injection, sterile syringe 1 ml .Route DAILY PRN (Reason: Reconstitute Xolair) Qty: 1 RF: 1 levocetirizine [Xyzal] 5 mg tablet 5 mg PO DAILY Qty: 30 RF: 2 ondansetron 4 mg tablet,disintegrating 4 mg PO DIRECTED PRN (Reason: Nausea) RF: 0 estradiol 0.075 mg/24 hr patch semiweekly 1 patch transdermal 2XWK RF: 0 bupropion HCl 150 mg tablet extended release 24 hr 150 mg PO BID RF: 0 Xolair 150 mg/mL syringe 300 mg SQ MONTHLY RF: 0 cyanocobalamin (vitamin B-12) [Vitamin B-12] 500 mcg Tablet 500 mcg PO DAILY RF: 0 ascorbic acid (vitamin C) [Vitamin C] 500 mg Tablet 500 mg PO DAILY RF: 0 melatonin 10 mg Tablet 30 mg PO HS PRN (Reason: Sleep) RF: 0 Discharge Orders: Discharge Order (Routine); Ordered 04/15/19 Ordered By: Alexandra Quintanilla/Other Patient Handouts: Obstruction Sm Bowel Admission Data Admit Date/Time: 04/14/19 22:30 Attending Provider: Quinton Valenzuela Admit Provider: Mitesh Ibarra Primary Care Provider: Aleksander Rodriguez Other Providers: Mitesh Ibarra ; Mikey Pearson. Other Interventions: Discharge Summary Assessment (RN) Last Done: 04/15/19 18:23 Supervising Physician Co-Signing Physician Notes I personally examined the patient and verified all felix points of history and exam, discussed case, and agree with decision making with Dr Kate. Feeling better. Eating well. Moving flatus. No abdominal pain. No nausea no vomiting. Has had multiple small bowel obstructions and feels like she is getting better quickly from this 1. Vitals noted, in general she is awake and alert pleasant no distress. HEENT normocephalic atraumatic mucous membranes are moist. Breathing is unlabored no accessory muscle use good effort. Abdomen is soft nondistended nontender no guarding no rebound no masses no organomegaly Adhesional small bowel obstructionimproving quickly. Appears to be stable for home now that she is tolerating regular diet. Close outpatient follow-up. Resident Activity Tracking Resident Involvement: Resident Care Provided Care Provided: Adult Hospital Medicine
--- NOTE | 2019-04-15 18:43 | Billing Data ---
Coding Level of Care Code D/C Day Management <30 mins
[2019-04-15] MEDS ORDERED: DOXEPIN HCL 10 MG CAPSULE PO SCH (21:00)
[2019-04-15] MEDS ORDERED: BuPROPion XL 150 MG TABCR PO SCH (21:00)
[2019-04-16] MEDS ORDERED: ATORVASTATIN 10 MG TAB PO SCH (09:00)
== END 2019-04-15 19:36 | disposition home or self-care (01) | DRG 389 ==
LOC: ED 19:25 → 3N 22:30 → SUATTDRO 22:30 → 3N 23:18

== ENCOUNTER 2023-04-02 08:57 | Inpatient (IN) ==
[2023-04-02 10:10] LABS: Appearance Urine Cloudy (Clear); Bilirubin Urine 2+ (Negative); Blood Urine 3+ (Negative); Color Urine Orange; Epithelial Cell Urine Auto >30 /lpf (0-5); Glucose Urine UA Negative (Negative); Ketones Urine Negative (Negative); Leukocyte Esterase Urine 3+ (Negative); Nitrite Urine Positive (Negative); Protein Urine 3+ (Negative); Specific Gravity Urine 1.022 (1.000-1.030); Urobilinogen Urine Negative (Negative); WBC Urine Automated >30 /hpf (0-5)
[2023-04-02 10:14] LABS: Basophils # (auto) 0.07 K/uL (0.00-0.20); Basophils % (auto) 0.4 %; Eosinophils # (auto) 0.14 K/uL (0.00-0.50); Eosinophils % (auto) 0.7 %; Hematocrit (blood only) 38.3 % (37.0-47.0); Hemoglobin 13.2 g/dl (12.0-16.0); Immature Granulocytes # (auto) 0.34 K/uL (0.01-0.20); Immature Granulocytes % (auto) 1.8 %; Lymphocytes # (auto) 1.09 K/uL (1.20-3.40); Lymphocytes % (auto) 5.7 %; Mean Corpuscular Hemoglobin 29.9 pg (25.0-34.0); Mean Corpuscular Hgb Conc 34.5 g/dL (32.0-36.0); Mean Corpuscular Volume 86.7 fL (80.0-100.0); Monocytes # (auto) 0.95 K/uL (0.11-0.59); Monocytes % (auto) 4.9 %; Neutrophils # (auto) 16.65 K/uL (1.40-6.50); Neutrophils % (auto) 86.5 %; Platelet Count 426 K/uL (130-400); RDW Standard Deviation 41.3 fL (36.4-46.3); Red Blood Count 4.42 M/uL (4.20-5.40); White Blood Count 19.24 K/ul (4.8-10.8)
[2023-04-02 10:20] LABS: Bacteria Urine Automated 1+ (Negative); RBC Urine Automated >30 /hpf (0-4)
[2023-04-02 10:35] LABS: Albumin Globulin Ratio 0.9 (0.9-2); Albumin Level 3.7 gm/dl (3.4-5.0); BUN Creatinine Ratio 14.5 (10-20); Calcium 9.4 mg/dl (8.6-10.3); Creatinine Clr Calc Pharmacy 28.7 ml/min; Est GFR (African American) 24.9 ml/min; Est GFR (Non-African American) 21.5 ml/min; Potassium 3.3 mmol/L (3.5-5.1); Total Protein 7.7 gm/dl (6.0-8.3)
--- NOTE | 2023-04-02 11:13 | Emergency Department Note ---
Impression & Plan Abdominal pain, Leukocytosis, Elevated LFTs, ISAURA (acute kidney injury), Tachycardia ED Provider Note CHIEF COMPLAINT: Abdominal pain HISTORY OF PRESENTING ILLNESS: This 57-year-old female patient presents to the emergency department with her for evaluation of uncontrolled abdominal pain. The patient had a bladder sling performed by Dr. Sylvester on 03/29/23. The patient states that her pain has gotten progressively worse over the last 24 to 48 hours. The patient rates her pain as sharp and 10/10. The pain is worse with any movement or with any "jiggling" of her abdomen, but improved when she lays flat. Has some redness around the incision site on the right. Having some green vaginal discharge, but no discharge from the incisions. The patient has run out of her oxycodone prescription, but even that wasn't helping the pain. The patient called Dr. Sylvester who referred her to the ER. No known fevers at home, but has had some hot and cold flashes. Having nausea and vomited yesterday, but no vomiting today. Denies chest pain. Only has SOB from the pain. REVIEW OF SYSTEMS: See HPI for pertinent positives and pertinent negatives. ALLERGIES: Codeine MEDICATIONS: See below PAST MEDICAL HISTORY: See below PHYSICAL EXAM: VITALS: Vitals are noted on the nurse's note and reviewed by myself. GENERAL: Non toxic, no acute distress, non-diaphoretic. SKIN: The 2 surgical incisions on the lower portion of the abdomen in the suprapubic area are healing, but there is surrounding erythema to the incision on the right. Mild induration of the erythema, but no fluctuance, pointing, or discharge. No lymphatic streaking. Capillary refill <2 sec. EYES: PERRLA. EOMI. Conjunctivae without injection, sclerae without icterus. NOSE: Patent without discharge. MOUTH: Mucous membranes moist. Uvula midline. Airway patent. NECK: Supple without nuchal rigidity. HEART: Regular rate and rhythm without murmurs gallops or rubs. LUNGS: Clear to auscultation bilaterally without wheezes, rales or rhonchi. No retractions or accessory muscle use. ABDOMEN: Positive bowel sounds x 4. Normal tympanic percussion. Soft, diffusely tender to palpation, but worse in the lower abdomen. The patient does have some guarding, but no rebound tenderness. No rigidity. No CVA tenderness. MUSCULOSKELETAL: No gross musculoskeletal defects. NEURO: Patient was alert and oriented. No focal neurological deficits. DIFFERENTIAL DIAGNOSIS: Differential diagnosis includes hepatitis, pancreatitis, cholecystitis, cholelithiasis, appendicitis, kidney stone, pyelonephritis, UTI, gastritis, gastroenteritis, mesenteric adenitis, obstruction, constipation, hernia, abdominal abscess, perforation, diverticulitis, IBD, ischemic colitis, abdominal aortic aneurysm, , ectopic , ovarian cyst, ovarian torsion, acute salpingitis, or others. ED COURSE AND MEDICAL DECISION MAKING: MONITOR: Continuous equipment monitor phototypesetting: Order was placed for continuous equipment monitor phototypesetting. Patient was placed on the equipment monitor phototypesetting and continuous pulse ox. Patient was noted to be in sinus tachycardia at an initial rate of 118 bpm per my interpretation. MEDICATIONS GIVEN: 2 L normal saline solution bolus, morphine 4 mg IV, Zofran 4 mg IV, morphine 4 mg IV, Rocephin 2 g IV. INTERPRETATION OF LABS: I interpreted the labs with full lab results as below in the lab section of this note. White blood cell count elevated at 19.24 with elevated neutrophils at 16.65. Hemoglobin normal at 13.2. Platelet count elevated at 426. Sodium 131, potassium 3.3, chloride 95, anion gap 12, BUN 35, creatinine 2.42, glucose 132, AST 68, ALT 69, alk phos 211. Lipase normal. Lactate 1.3. Urinalysis with 3+ protein, 3+ blood, positive nitrates, 2+ bilirubin, 3+ leukocyte Estrace, greater than 30 white blood cells, greater than 30 red blood cells, greater than 30 epithelial cells, 1+ bacteria. Urine culture pending. Blood culture pending. INTERPRETATION OF IMAGING: Imaging studies were interpreted by myself and read by radiology as per the imaging section of this note. Chest x-ray with cardiomegaly and bibasilar atelectasis. CT scan of the abdomen pelvis without contrast showed moderate right pelvic inflammation with an associated small fluid collection along the right lateral aspect of the bladder measuring 7 x 2.6 cm with mild mass effect on the bladder. There is a small amount of fluid extending along the right pelvic sidewall. In addition, gas along the medial base of the cecum which may be extraluminal. Although these findings may be postsurgical, and underlying bowel injury could also have this imaging appearance. Moderate small bowel dilation without discrete transition point which favors an ileus, but a partial small bowel obstruction could appear similar. Cholelithiasis without cholecystitis. EXTERNAL RECORDS REVIEWED: I reviewed the patient's urology notes and operative report from her recent surgery on 03/29/2023. CONSULTATIONS: Dr. Grullon of radiology, MASOOD Garcia of urology, the on-call hospitalist. CRITICAL CARE: I have personally spent 45 minutes of critical care time in the direct management of this patient. This includes bedside care, interpretation of diagnostic studies, and testing, discussion with consultants, patient, and family members, and other required patient management activities. This 45 minutes is in excess of all separately billable procedures. MDM SUMMARY: Due to abnormally long wait times, I initially evaluated the patient in a triage room and then I reevaluated the patient when she was taken back to an exam room. At the time of my examination in the triage room, an IV lock had already been placed, labs drawn, and some lab results returned. At the time of my initial evaluation, the patient's white blood cell count was 19.24, she had an acute kidney injury with a creatinine 2.42 and BUN of 35 with a normal BUN and creatinine on 03/26/2023, and her LFTs were also elevated. The patient was tachycardic, but afebrile. Upon my evaluation, a lactate and blood cultures were ordered and the patient was given Rocephin 2 g IV as well as 2 L normal saline solution bolus based on her ideal body weight. Due to the concern for sepsis, I had the patient taken back to the next available room. The patient's lactate level did come back normal at 1.3. The patient was medicated with morphine and Zofran with improvement of her symptoms. Unfortunately the CT scan of the abdomen and pelvis could not be performed with contrast due to her acute kidney injury. Dr. Grullon of radiology called me to discuss the patient's CT scan findings. He stated that the CT scan was difficult to interpret due to the lack of contrast and her recent surgery, but he was concerned that there was possibly a perforation or bowel injury, but he could not be certain without the contrast and her recent surgery. I had a meaningful discussion about this patient with Dr. Molina who agrees with my assessment and the treatment plan. I contacted MASOOD Garcia of urology who discussed the case with her attending Dr. Sylvester. She stated that Dr. Sylvester reviewed the CT scan and he did not feel that there was a bowel perforation based on his interpretation of the imaging and due to the fact that the surgery had a low risk for bowel perforation. He felt that the fluid collection next to the bladder may be a seroma that became infected. They recommended having a Joshi catheter placed which was performed by nursing staff. The patient is to be on bowel rest due to the ileus and will require admission for IV antibiotics. They did not feel that surgery was needed at this time. They did recommend the patient be admitted to medicine due to the complexity of the case. Please refer to their dictation for further details. I spoke with the on-call hospitalist who is willing to admit the patient, but wanted to consult surgery to confirm that they did not feel that there was a bowel perforation requiring more urgent surgery or transfer. The patient was evaluated by surgery who did not feel that emergent surgical intervention or transfer was required at this time. Please refer to their dictation for further details. Therefore, the patient was admitted by the on-call hospitalist. Please refer to their dictation for further details. The patient's care was transferred in stable condition. DIAGNOSIS: Abdominal pain with presumed postoperative infection and ileus Acute kidney injury Elevated LFTs Leukocytosis and tachycardia with normal lactate Past Med/Surg History Medical History Chronic idiopathic urticaria follows with [employer]; sx controlled on Xolair Nausea and vomiting after administration of anesthetic agent GERD (gastroesophageal reflux disease) Postmenopausal HRT (hormone replacement therapy) Obesity Depression Angioedema follows with [employer]; sx controlled on Xolair Migraines Surgical History Hx of colonoscopy H/O basal cell carcinoma excision several History of bilateral breast reduction surgery History of exploratory laparotomy x 5, Colon resection, colostomy with take down and reanastamosis, removal of right ovary and aniceto History of tubal ligation History of hysteroscopy History of dilation and curettage History of knee surgery History of hysterectomy w/ removal of left ovary Family History Father Pancreatic cancer Unknown Hypertension Mother Macular degeneration Denies family history of Ovarian cancer Breast cancer Colorectal cancer Social History Smoking Status: Never smoker Second Hand Exposure: Yes (hx); Do You Dip or Chew Tobacco: No; Hx Alcohol Use: Yes Hx Substance Use: No Preferred Language: Tajik Communication Ability: Effective Lubrication Worker Required: No Beliefs That Will Affect Care: None marital status: Current Living Situation: Spouse Feels Safe at Home: Yes Assistive Devices: None Allergies Allergies Allergy/AdvReac Type Severity Reaction Status Date / Time codeine Allergy Mild "can't Verified 03/29/23 09:29 remember reaction" Home Meds Home Medications Medication Instructions Recorded Confirmed bupropion HCl 150 mg 24 hr tablet, 150 mg PO BID 04/14/19 04/02/23 extended release melatonin 10 mg tablet 30 mg PO HS PRN Sleep 04/14/19 04/02/23 amitriptyline 50 mg tablet 50 mg PO HS 06/30/20 04/02/23 atorvastatin 10 mg tablet (Lipitor) 10 mg PO HS 06/30/20 04/02/23 omeprazole 20 mg capsule,delayed 20 mg PO QAM 03/16/23 04/02/23 release sumatriptan succinate 25 mg tablet 25 mg PO UD PRN migraine headache 03/16/23 04/02/23 (Imitrex) levocetirizine 5 mg tablet 5 mg PO DAILY 04/02/23 04/02/23 topiramate 50 mg tablet 50 mg PO DAILY 04/02/23 04/02/23 Previous Rx's Medication Instructions Recorded multivitamin (Daily Multi-Vitamin 1 tab PO DAILY #30 tabs 12/11/18 tablet) needle (disp) 25 gauge 25 gauge x #100 ea 12/11/18 5/8" (BD Regular [place]) ondansetron 4 mg disintegrating 4 mg PO Q6H PRN nausea and 06/30/20 tablet vomiting #12 tabs estradiol 0.075 mg/24 hr 1 patch transdermal 2XWK #24 ea 01/19/22 semiweekly transdermal patch doxepin 10 mg capsule 10 mg PO HS #90 caps 07/17/22 epinephrine 0.3 mg/0.3 mL 0.3 mg (0.3 mL) IM Q15M PRN 07/27/22 injection, auto-injector (EpiPen) anaphylaxis 3 doses #1 ea omalizumab 150 mg/mL subcutaneous See Rx Instructions .Route 11/10/22 syringe (Xolair) .COMPLEX ##2 docusate sodium 100 mg capsule 100 mg PO BID PRN constipation #30 03/29/23 caps oxycodone-acetaminophen 7.5 mg-325 1 tab PO Q8H PRN pain #7 tabs 03/29/23 mg tablet (Percocet) phenazopyridine 200 mg tablet 200 mg PO Q8H PRN pain #10 tabs 03/29/23 (Pyridium) sulfamethoxazole 800 1 tab PO Q12H #10 tabs 03/29/23 mg-trimethoprim 160 mg tablet (Bactrim DS) tamsulosin 0.4 mg capsule 0.4 mg PO HS #30 caps 03/29/23 Results & Data (ED) Vital Signs Vital Signs - 24 hr 04/02/23 11:49 04/02/23 12:02 04/02/23 14:54 Pulse Rate 119 H Pulse Rate [Apical] 115 H 98 H Respiratory Rate 20 20 Respiratory Effort / Characteristics Non-Labored Non-Labored Respiratory Depth Normal Normal Blood Pressure [Left Arm] 131/91 146/85 H Blood Pressure Mean [Left Arm] 104 105 Pulse Oximetry 93 97 Oxygen Delivery Method Room Air Room Air 04/02/23 15:24 04/02/23 16:17 04/02/23 16:27 Pulse Rate 117 H Pulse Rate [Apical] 110 H 112 H Respiratory Rate 24 20 Respiratory Effort / Characteristics Respiratory Depth Blood Pressure [Left Arm] 146/85 H 131/74 Blood Pressure Mean [Left Arm] 105 93 Pulse Oximetry 96 96 Oxygen Delivery Method Room Air Room Air 04/02/23 18:00 04/02/23 20:00 Pulse Rate Pulse Rate [Apical] 115 H 117 H Respiratory Rate 18 20 Respiratory Effort / Characteristics Respiratory Depth Blood Pressure [Left Arm] 108/75 110/66 Blood Pressure Mean [Left Arm] 86 80 Pulse Oximetry 94 93 Oxygen Delivery Method Room Air Room Air Laboratory Data 04/03/23 04:09 04/03/23 04:09 Lab Results 04/02/23 04/02/23 04/02/23 Range/Units 09:47 09:49 11:42 WBC 19.24 H (4.8-10.8) K/ul RBC 4.42 (4.20-5.40) M/uL Hgb 13.2 (12.0-16.0) g/dl Hct 38.3 (37.0-47.0) % MCV 86.7 (80.0-100.0) fL MCH 29.9 (25.0-34.0) pg MCHC 34.5 (32.0-36.0) g/dL RDW Std Deviation 41.3 (36.4-46.3) fL RDW Coeff of Moe 13.0 (11.5-14.5) % Plt Count 426 H (130-400) K/uL MPV 9.0 L (9.4-12.4) fL Immature Gran % (Auto) 1.8 % Neut % (Auto) 86.5 % Lymph % (Auto) 5.7 % [place] % (Auto) 4.9 % Eos % (Auto) 0.7 % Baso % (Auto) 0.4 % Neut # (Auto) 16.65 H (1.40-6.50) K/uL Lymph # (Auto) 1.09 L (1.20-3.40) K/uL [place] # (Auto) 0.95 H (0.11-0.59) K/uL Eos # (Auto) 0.14 (0.00-0.50) K/uL Baso # (Auto) 0.07 (0.00-0.20) K/uL Immature Gran # (Auto) 0.34 H (0.01-0.20) K/uL Sodium 131 L (136-145) mmol/L Potassium 3.3 L (3.5-5.1) mmol/L Chloride 95 L (98-107) mmol/L Carbon Dioxide 24 (21-32) mmol/L Anion Gap 12 H (3-11) BUN 35 H (6-23) mg/dl Creatinine 2.42 H (0.6-1.2) mg/dl Est Cr Clr Drug Dosing 28.7 ml/min Est GFR ( Amer) 24.9 ml/min Est GFR (Non-Af Amer) 21.5 ml/min BUN/Creatinine Ratio 14.5 (10-20) Glucose 132 H (70-99(Fasting)) mg/dl Lactate 1.3 (0.4-2.0) mmol/L Calcium 9.4 (8.6-10.3) mg/dl Magnesium 2.1 (1.7-2.4) mg/dl Total Bilirubin 1.0 (0.2-1.0) mg/dl AST 68 H (13-39) U/L ALT 69 H (7-52) U/L Alkaline Phosphatase 211 H (34-104) U/L Total Protein 7.7 (6.0-8.3) gm/dl Albumin 3.7 (3.4-5.0) gm/dl Globulin 4.0 (2.5-4.0) gm/dl Albumin/Globulin Ratio 0.9 (0.9-2) Lipase 6 L (11-82) U/L Urine Color [place] Urine Appearance Cloudy A (Clear) Urine pH 5.0 (4.5-7.5) Ur Specific [place] 1.022 (1.000-1.030) Urine Protein 3+ H (Negative) Urine Glucose (UA) Negative (Negative) Urine Ketones Negative (Negative) Urine Blood 3+ H (Negative) Urine Nitrite Positive A (Negative) Urine Bilirubin 2+ H (Negative) Urine Urobilinogen Negative (Negative) Ur Leukocyte Esterase 3+ H (Negative) Urine WBC (Auto) >30 H (0-5) /hpf Urine RBC (Auto) >30 H (0-4) /hpf U Hyaline Cast (Auto) 1-5 (0-5) /lpf U Epithel Cells (Auto) >30 H (0-5) /lpf Urine Bacteria (Auto) 1+ H (Negative) Ur Renal Epithelial Cell Not Reportable Urine Yeast Not Reportable Nasal Screen MRSA (PCR) (Negative) 04/02/23 Range/Units 16:33 WBC (4.8-10.8) K/ul RBC (4.20-5.40) M/uL Hgb (12.0-16.0) g/dl Hct (37.0-47.0) % MCV (80.0-100.0) fL MCH (25.0-34.0) pg MCHC (32.0-36.0) g/dL RDW Std Deviation (36.4-46.3) fL RDW Coeff of Moe (11.5-14.5) % Plt Count (130-400) K/uL MPV (9.4-12.4) fL Immature Gran % (Auto) % Neut % (Auto) % Lymph % (Auto) % [place] % (Auto) % Eos % (Auto) % Baso % (Auto) % Neut # (Auto) (1.40-6.50) K/uL Lymph # (Auto) (1.20-3.40) K/uL [place] # (Auto) (0.11-0.59) K/uL Eos # (Auto) (0.00-0.50) K/uL Baso # (Auto) (0.00-0.20) K/uL Immature Gran # (Auto) (0.01-0.20) K/uL Sodium (136-145) mmol/L Potassium (3.5-5.1) mmol/L Chloride (98-107) mmol/L Carbon Dioxide (21-32) mmol/L Anion Gap (3-11) BUN (6-23) mg/dl Creatinine (0.6-1.2) mg/dl Est Cr Clr Drug Dosing ml/min Est GFR ( Amer) ml/min Est GFR (Non-Af Amer) ml/min BUN/Creatinine Ratio (10-20) Glucose (70-99(Fasting)) mg/dl Lactate (0.4-2.0) mmol/L Calcium (8.6-10.3) mg/dl Magnesium (1.7-2.4) mg/dl Total Bilirubin (0.2-1.0) mg/dl AST (13-39) U/L ALT (7-52) U/L Alkaline Phosphatase (34-104) U/L Total Protein (6.0-8.3) gm/dl Albumin (3.4-5.0) gm/dl Globulin (2.5-4.0) gm/dl Albumin/Globulin Ratio (0.9-2) Lipase (11-82) U/L Urine Color Urine Appearance (Clear) Urine pH (4.5-7.5) Ur Specific [place] (1.000-1.030) Urine Protein (Negative) Urine Glucose (UA) (Negative) Urine Ketones (Negative) Urine Blood (Negative) Urine Nitrite (Negative) Urine Bilirubin (Negative) Urine Urobilinogen (Negative) Ur Leukocyte Esterase (Negative) Urine WBC (Auto) (0-5) /hpf Urine RBC (Auto) (0-4) /hpf U Hyaline Cast (Auto) (0-5) /lpf U Epithel Cells (Auto) (0-5) /lpf Urine Bacteria (Auto) (Negative) Ur Renal Epithelial Cell Urine Yeast Nasal Screen MRSA (PCR) Negative (Negative) Administered Medications Enoxaparin Sodium (Enoxaparin Inj 40 Mg/0.4 Ml Syr) 40 mg SQ QAM [facility] Stop: 05/03/23 08:59 Last Admin: 04/03/23 08:56 Dose: 40 mg Documented By: DLN Metronidazole (Flagyl) 500 mg in 100 mls @ 100 mls/hr IV Q8H [facility]; Protocol Stop: 04/05/23 00:29 Last Admin: 04/03/23 08:55 Dose: 100 mls/hr Documented By: Infusion: 04/03/23 01:05 Dose: Infused Documented By: Admin: 04/03/23 00:03 Dose: 100 mls/hr Documented By: QG Cefepime HCl 1,000 mg/ Syringe 10 mls @ 5 mls/min IV Q12H [facility] Stop: 04/13/23 03:59 Last Admin: 04/03/23 03:10 Dose: 5 mls/min Documented By: QG Potassium Chloride/Dextrose/Sod Cl (D5nss + 20meq Kcl) 20 meq in 1,000 mls @ 100 mls/hr IV .Q10H [facility]; Protocol Stop: 05/03/23 08:14 Last Admin: 04/03/23 08:56 Dose: 100 mls/hr Documented By: MARLENAN Pantoprazole Sodium 40 mg/ (Syringe) 10 mls @ 5 mls/min IV DAILY@1100 [facility] Stop: 05/03/23 10:59 Last Admin: 04/03/23 08:57 Dose: 5 mls/min Documented By: DEISY Ondansetron HCl (Ondansetron Inj 2 Mg/Ml 2 Ml Vial) 4 mg IV Q4H PRN PRN Reason: Nausea Stop: 05/03/23 08:17 Last Admin: 04/03/23 08:55 Dose: 4 mg Documented By: DEISY Discontinued Medications Hydromorphone HCl (Hydromorphone Inj 1 Mg/Ml Syringe) 1 mg IV Q4H PRN PRN Reason: Pain (5+) Stop: 04/16/23 17:55 Last Admin: 04/03/23 07:49 Dose: 1 mg Documented By: Admin: 04/03/23 04:31 Dose: 1 mg Documented By: Admin: 04/02/23 23:58 Dose: 1 mg Documented By: Admin: 04/02/23 18:56 Dose: 1 mg Documented By: VITA Hydromorphone HCl (Hydromorphone Inj 0.5 Mg/0.5 Ml Syr) 0.25 mg IV NOW STA Stop: 04/03/23 06:45 Last Admin: 04/03/23 06:50 Dose: 0.25 mg Documented By: NICHELLE Ceftriaxone Sodium (Rocephin) 2,000 mg in 50 mls @ 100 mls/hr IV NOW STA Stop: 04/02/23 11:53 Last Infusion: 04/02/23 12:45 Dose: Infused Documented By: Admin: 04/02/23 12:07 Dose: 100 mls/hr Documented By: QGV Sodium Chloride (Nss) 1,000 mls @ 999 mls/hr IV .Q1H1M ONE Stop: 04/02/23 12:24 Last Infusion: 04/02/23 13:18 Dose: Infused Documented By: Admin: 04/02/23 12:09 Dose: 999 mls/hr Documented By: QGV Sodium Chloride (Nss) 1,000 mls @ 999 mls/hr IV .Q1H1M ONE Stop: 04/02/23 14:12 Last Infusion: 04/02/23 16:18 Dose: Infused Documented By: Admin: 04/02/23 14:26 Dose: 999 mls/hr Documented By: QASIM Metronidazole (Flagyl) 500 mg in 100 mls @ 100 mls/hr IV NOW STA; Protocol Stop: 04/02/23 16:20 Last Infusion: 04/02/23 18:06 Dose: Infused Documented By: Admin: 04/02/23 16:33 Dose: 100 mls/hr Documented By: VITA Cefepime HCl 2,000 mg/ Syringe 20 mls @ 5 mls/min IV NOW STA; Protocol Stop: 04/02/23 15:24 Last Admin: 04/02/23 16:16 Dose: 5 mls/min Documented By: VITA Daptomycin 425 mg/ Syringe 8.5 mls @ 4.25 mls/min IV NOW STA; Protocol Stop: 04/02/23 17:02 Last Admin: 04/02/23 18:52 Dose: 4.25 mls/min Documented By: VITA Lactated Ringer's (Lr) 1,000 mls @ 100 mls/hr IV .Q10H MARISOL Stop: 04/03/23 13:59 Last Admin: 04/03/23 04:32 Dose: 100 mls/hr Documented By: QMehdi Infusion: 04/03/23 04:21 Dose: Infused Documented By: Admin: 04/02/23 18:21 Dose: 100 mls/hr Documented By: VITA Morphine Sulfate (Morphine Sulfate 4 Mg/Ml 1 Ml Carp\\Vial) 4 mg IV NOW STA Stop: 04/02/23 11:25 Last Admin: 04/02/23 12:07 Dose: 4 mg Documented By: QGV Morphine Sulfate (Morphine Sulfate 4 Mg/Ml 1 Ml Carp\\Vial) 4 mg IV NOW STA Stop: 04/02/23 15:17 Last Admin: 04/02/23 15:22 Dose: 4 mg Documented By: VITA Ondansetron HCl (Ondansetron Inj 2 Mg/Ml 2 Ml Vial) 4 mg IV NOW STA Stop: 04/02/23 11:25 Last Admin: 04/02/23 12:07 Dose: 4 mg Documented By: QGV Discharge Plan Visit Data Chief Complaint: Abdominal Pain Stated Complaint: ABD PAIN,SURG ON SUNDAY, ED Provider: Brian Molina ED Midlevel Provider: Annemarie Ponce Discharge Problem: Abdominal pain, Leukocytosis, Elevated LFTs, ISAURA (acute kidney injury), Tachycardia Patient Disposition: Admitted As Inpatient Condition: Fair Discharge Instructions Interventions: ED Discharge Assessment Last Done: 04/02/23 21:57 Discharge Problem: Abdominal pain Qualifiers: Abdominal location: generalized Qualified Code(s): R10.84 - Generalized abdominal pain Leukocytosis Qualifiers: Leukocytosis type: unspecified Qualified Code(s): D72.829 - Elevated white blood cell count, unspecified
[2023-04-02] MEDS ORDERED: cefTRIAXone SODIUM 2,000 MG/50 ML BAG IV STA (11:24)
[2023-04-02] MEDS ORDERED: ONDANSETRON INJ 2 MG/ML 2 ML VIAL IV STA (11:24)
[2023-04-02] MEDS ORDERED: SODIUM CHLORIDE 0.9% 1,000 ML IV ONE ×2 (11:24→13:12)
[2023-04-02] MEDS ORDERED: MoRPHine SULFATE 4 MG/ML 1 ML CARP\\VIAL IV STA ×2 (11:24→15:16)
--- NOTE | 2023-04-02 13:11 | CT Scan Report ---
CT OF THE ABDOMEN AND PELVIS WITHOUT CONTRAST CLINICAL HISTORY: Abdominal pain, leukocytosis, recent surgery COMPARISON STUDY: CT of the abdomen and pelvis June 30, 2020. TECHNIQUE: Axial images of the abdomen and pelvis were obtained without IV contrast. Images were revi ewed in the axial, sagittal, and coronal planes. Automated exposure control was utilized for the yin dy. A dose lowering technique was utilized adhering to the principles of ALARA. FINDINGS: There is mild elevation of the right hemidiaphragm. Subpleural right lower lung opacities r epresent atelectasis. No pneumatosis or portal venous gas is present. There are numerous gallstones w ithin the gallbladder. There is no evidence for acute cholecystitis. A punctate left renal calculus i s present. There are no ureteral calculi. There is no hydronephrosis. Unenhanced images of liver, spl een, adrenal glands and pancreas are unremarkable. Postoperative findings consistent with ventral her boubacar repair with mesh are noted. Infiltration and a small amount of fluid and gas within the right ant erior pelvic wall is likely postsurgical. There is slight asymmetric thickening of the inferior right rectus muscle. This may reflect trace blood products. No large hematoma is noted. However, there is moderate right pelvic infiltration. A small elongated fluid collection along the right aspect of the bladder on image 335 of 425 measures 7 x 2.6 cm. This contains a locule of gas. In addition, there is gas along the medial base of the cecum. It is unclear whether this is intraluminal. The findings are suboptimally assessed on this unenhanced exam. Fluid extends along the right pelvic sidewall. The pr oximal to mid small bowel is moderately dilated and fluid-filled. A well-defined transition point is not identified. A small bowel anastomosis is noted. There is also evidence for a sigmoid resection. A small amount of gas within the bladder is noted. IMPRESSION: 1. Moderate right pelvic inflammation. Associated small fluid collection along the right lateral aspe ct of the bladder, measuring 7 x 2.6 cm, with mild mass effect upon the bladder. Small amount of flui d extending along the right pelvic sidewall. In addition, gas along the medial base of the cecum whi ch may be extraluminal. Although these findings may be postsurgical, an underlying bowel injury could have this imaging appearance. If indicated, a contrast-enhanced CT of the abdomen and pelvis could b e obtained. 2. Moderate small bowel dilatation without discrete transition point. This favors an ileus. A partial small bowel obstruction could appear similar. 3. Cholelithiasis. No evidence for acute cholecystitis. ACT 112: Negative or not required by law. Electronically signed by: Yury Grullon M.D. 04/02/2023 1:08 PM
[2023-04-02] MEDS ORDERED: metroNIDAZOLE 500 MG/100 ML BAG IV STA (15:21)
[2023-04-02] MEDS ORDERED: CEFEPIME 2,000 MG in SYRINGE 0 ML IV STA (15:21)
--- NOTE | 2023-04-02 15:24 | History & Physical Report ---
Date of Service April 02, 2023 Assessment & Plan (1) Abdominal pain: Plan: -Admit to med/tele -Currently stable -At this time the etiology of the patient's progressive abd pain is most consistent with Post-operative infection from her recent cystoscopy and ureteral sling -Initial concern for signs of bowel perf of CT of the abd/pelvis, appreciate General Surgeries input and evaluation, they do not believe that she has a bowel perf at this time, patient is stable for admission at our facility -S/P one dose of Ceftriaxone in the ED, continuing with Cefepime, Daptomycin, and Flagyl (Empiric 48 hours coverage) until cultures have resulted -Follow MRSA screen ordered on admission -Urology also consulted and following, appreciate their assistance -For now will use prn dilaudid for pain as we cannot use NSAID's with her ISAURA and need to hold Acetaminophen until Tylenol level is back -Hold chemical DVT PPX for now in case urgent OR would be needed, BL RENEE's for now -Strict NPO at this time with current ileus with possibly developing SBO and complex abd history -Light IV fluids while NPO -AM CBC, CMP, Mag, PT/INR (2) Leukocytosis: Plan: -At this time the etiology of the patient's leukocytosis with neutrophile predominance is most likely a post-operative infection after her cystoscopy and ureteral sling on 03/29 -The patient's surgical site appears infected with recent discolored discharge, her UA also appears to be infected, but unsure if this is due to her recent procedure -Will obtain Chest xray to monitor for other sources -Appreciate General Surgery's input, no need for transfer or urgent OR at this time -S/P Ceftriaxone in the ED, will continue with Cefepime, flagyl, and Daptomycin for now to cover all possible sources -S/P 2L NSS in the ED, sepsis bolus based on IBW is 1772 mL -Follow urine and blood cultures obtained in the ED (3) ISAURA (acute kidney injury): Plan: -Cr elevated at 2.42, baseline is near 1.0 -Likely multifactorial including recent ibuprofen use, Baclofen use, current infection -No signs of obstruction or hydronephrosis on CT of the abd/pelvis today -S/P spence cath placement in the ED with adequate urinary output at this time -Monitor intake/output q6h for now -Avoid nephrotoxic agents -Will continue light IV fluids overnight with decreased PO intake -Monitor am renal function/electrolytes (4) Elevated LFTs: Plan: -AST, ALT, and alk phos are mildly elevated today -No previous hx of liver disease, no recent alcohol use -CT of the abd/pelvis wo con was negative for acute hepatic findings -Could be due to recent Acetaminophen use with her abdominal pain -Will obtain Acetaminophen level -Avoid Hepatotoxic agents for now -Monitor am liver function, if continuing to worsen would escalate workup (5) Hypokalemia: Plan: -Potassium of 3.3 today -Likely due to poor oral intake over the weekend -Not on outpatient diuretics -Will add on mag level -Will give 20 meq IV KCL to for now with her significant ISAURA -Continue to monitor on tele Plan The patient was discussed with Dr. Mercedes at the time of the admission History of Present Illness Chief Complaint: uncontrolled abdominal pain post Urologic procedure Primary Care Provider: Aleksander Rodriguez DO Tomasa is a 57 year old female with a PMH significant for previous hysterectomy complicated by bowel perforation approximately [address] 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 Sylvester on 03/29 who presented to the [facility] ED on 04/02 at the recommendation of Dr. Sylvester for uncontrolled post-operative pain. She was noted to be tachycardic at 110 but otherwise stable. Labs were significant for a leukocytosis of 19 with neutrophil predominance of 16, Cr of 2.42 (baseline is approximately 1.0), BUN of 35, lactate WNL, potassium of 3.3, chloride of 95, AG of 12 with bicarb WNL, AST of 68, ALT of 69, alk phos of 211, and UA concerning for UTI. CT of the abd/pelvis wo con was read as "1. Moderate right pelvic inflammation. Associated small fluid collection along the right lateral aspect of the bladder, measuring 7 x 2.6 cm, with mild mass effect upon the bladder. Small amount of fluid extending along the right pelvic sidewall. In addition, gas along the medial base of the cecum which may be extraluminal. Although these findings may be postsurgical, an underlying bowel injury could have this imaging appearance. If indicated, a contrast-enhanced CT of the abdomen and pelvis could be obtained. 2. Moderate small bowel dilatation without discrete transition point. This favors an ileus. A partial small bowel obstruction could appear similar. 3. Cholelithiasis. No evidence for acute cholecystitis.". Prior to admission the patient was given a dose of Ceftriaxone, 8 mg IV morphine, and 4mg IV zofran. At the time of the exam the patient was lying in bed and appears uncomfortable, her is sitting at the bedside, history was obtained from both. They state that the patient started to develop suprapubic pain on 03/31. Since then her pain has progressed to a generalized abdominal pain with increasing distention. She has had the chills but has not taken her temperature. She has had charbel poor oral intake over this time. Her pain is described as a "squeezing" type pain. She has had nausea but denies recent vomiting. Her last BM was yesterday which was loose and possibly bloody per the patient. She states that she has had increased urinary frequency and has had a "greenish" discharge when changing the pads in her underwear over the past 48 hours. She confirms she has still been making urine and denies significantly decreased urine output. She has not had a BM today and has not been passing gas as of today. Over the past 48 hours she has been alternating 1000 mg PO Acetaminophen and 600 mg PO Ibuprofen q6h each. Her pain is currently a 3-4/10 after receiving another dose of morphine, her pain was a 10/10 prior to arrival. She confirms that she was taking the Bactrim as prescribed since her procedure on 03/29. She is a full code and wishes for her to make medical decisions for her if she cannot make them herself. Please refer to Dr. Mercedes's attestation for any changes to the treatment plan Allergies Allergy/AdvReac Type Severity Reaction Status Date / Time codeine Allergy Mild "can't Verified 03/29/23 09:29 remember reaction" Home Medications Medication Instructions Recorded Confirmed Type multivitamin (Daily Multi-Vitamin 1 tab PO DAILY #30 tabs 12/11/18 04/02/23 Rx tablet) needle (disp) 25 gauge 25 gauge x #100 ea 12/11/18 01/25/23 Rx 5/8" (BD Regular Bevel [place]) bupropion HCl 150 mg 24 hr tablet, 150 mg PO BID 04/14/19 04/02/23 History extended release melatonin 10 mg tablet 30 mg PO HS PRN Sleep 04/14/19 04/02/23 History amitriptyline 50 mg tablet 50 mg PO HS 06/30/20 04/02/23 History atorvastatin 10 mg tablet (Lipitor) 10 mg PO HS 06/30/20 04/02/23 History ondansetron 4 mg disintegrating 4 mg PO Q6H PRN nausea and 06/30/20 04/02/23 Rx tablet vomiting #12 tabs estradiol 0.075 mg/24 hr 1 patch transdermal 2XWK #24 ea 01/19/22 04/02/23 Rx semiweekly transdermal patch doxepin 10 mg capsule 10 mg PO HS #90 caps 07/17/22 04/02/23 Rx epinephrine 0.3 mg/0.3 mL 0.3 mg (0.3 mL) IM Q15M PRN 07/27/22 04/02/23 Rx injection, auto-injector (EpiPen) anaphylaxis 3 doses #1 ea omalizumab 150 mg/mL subcutaneous See Rx Instructions .Route 11/10/22 04/02/23 Rx syringe (Xolair) .COMPLEX ##2 omeprazole 20 mg capsule,delayed 20 mg PO QAM 03/16/23 04/02/23 History release sumatriptan succinate 25 mg tablet 25 mg PO UD PRN migraine headache 03/16/23 04/02/23 History (Imitrex) docusate sodium 100 mg capsule 100 mg PO BID PRN constipation #30 03/29/23 04/02/23 Rx caps oxycodone-acetaminophen 7.5 mg-325 1 tab PO Q8H PRN pain #7 tabs 03/29/23 04/02/23 Rx mg tablet (Percocet) phenazopyridine 200 mg tablet 200 mg PO Q8H PRN pain #10 tabs 03/29/23 04/02/23 Rx (Pyridium) sulfamethoxazole 800 1 tab PO Q12H #10 tabs 03/29/23 04/02/23 Rx mg-trimethoprim 160 mg tablet (Bactrim DS) tamsulosin 0.4 mg capsule 0.4 mg PO HS #30 caps 03/29/23 04/02/23 Rx levocetirizine 5 mg tablet 5 mg PO DAILY 04/02/23 04/02/23 History topiramate 50 mg tablet 50 mg PO DAILY 04/02/23 04/02/23 History Past Med/Surg History Medical History Chronic idiopathic urticaria follows with [facility]; sx controlled on Xolair Nausea and vomiting after administration of anesthetic agent GERD (gastroesophageal reflux disease) Postmenopausal HRT (hormone replacement therapy) Obesity Depression Angioedema follows with [facility]; sx controlled on Xolair Migraines Surgical History Hx of colonoscopy H/O basal cell carcinoma excision several History of bilateral breast reduction surgery History of exploratory laparotomy x 5, Colon resection, colostomy with take down and reanastamosis, removal of right ovary and aniceto History of tubal ligation History of hysteroscopy History of dilation and curettage History of knee surgery History of hysterectomy w/ removal of left ovary Family History Father Pancreatic cancer Unknown Hypertension Mother Macular degeneration Denies family history of Ovarian cancer Breast cancer Colorectal cancer Social History Smoking Status: Former smoker Second Hand Exposure: Yes (hx); Do You Dip or Chew Tobacco: No; Hx Alcohol Use: Yes Alcohol type: wine Hx Substance Use: No Preferred Language: Lithuanian Communication Ability: Effective Bench Molder Required: No Beliefs That Will Affect Care: None marital status: Current Living Situation: Spouse Feels Safe at Home: Yes Assistive Devices: None Physical Exam Physical Exam: Physical Exam: General: Uncomfortable, stated age, well-nourished, good hygiene, non-toxic appearing HEENT: Normocephalic, atraumatic, no scleral icterus, pupils around round, symmetrical, and reactive to light, dry mucus membranes, trachea midline, no thyromegaly Chest/Pulm: No respiratory distress, symmetrical chest expansion, clear breath sounds throughout Cardiac: tachycardic rate, regular rhythm, 3/6 systolic murmur noted Abdomen: Distended abdomen, hypoactive bowel sounds, mildly firm, no tenderness to percussion of all quadrants, significantly tender in the lower abdominal quadrants to even light palpation with tenderness to deep palpation in the upper abdominal quadrants without rebound tenderness : Patient with overlying erythema and swelling over the suprapubic region, procedure sites appear intact and without acute drainage but with crusting noted over the right suture site Musculoskeletal: Symmetrical and without signs of acute trauma, upper and lower extremities with full ROM, no atrophy, spasticity, or flaccidity Extremities: Radial, dorsalis pedis, and posterior tibial pulses are intact and symmetrical, no edema noted in the BL LE's Skin: Was described above Neuro: Alert and oriented to person, place, month, year, and president, no focal defects, no tremors noted Psych: No acute distress, calm and cooperative during the exam Results & Data Results & Data Vital Signs (Past 12 Hours) Vital Signs Temp Pulse Pulse Resp BP BP Pulse Ox 04/02/23 14:54 98 H 20 146/85 H 97 04/02/23 12:02 119 H 04/02/23 11:49 115 H 20 131/91 93 04/02/23 09:11 37.0 C 121 H 20 131/63 97 O2 Del Method 04/02/23 14:54 Room Air 04/02/23 12:02 04/02/23 11:49 Room Air 04/02/23 09:11 Room Air Laboratory Results Abnormal lab results 04/02/23 04/02/23 Range/Units 09:47 09:49 WBC 19.24 H (4.8-10.8) K/ul Plt Count 426 H (130-400) K/uL MPV 9.0 L (9.4-12.4) fL Neut # (Auto) 16.65 H (1.40-6.50) K/uL Lymph # (Auto) 1.09 L (1.20-3.40) K/uL [place] # (Auto) 0.95 H (0.11-0.59) K/uL Immature Gran # (Auto) 0.34 H (0.01-0.20) K/uL Sodium 131 L (136-145) mmol/L Potassium 3.3 L (3.5-5.1) mmol/L Chloride 95 L (98-107) mmol/L Anion Gap 12 H (3-11) BUN 35 H (6-23) mg/dl Creatinine 2.42 H (0.6-1.2) mg/dl Glucose 132 H (70-99(Fasting)) mg/dl AST 68 H (13-39) U/L ALT 69 H (7-52) U/L Alkaline Phosphatase 211 H (34-104) U/L Lipase 6 L (11-82) U/L Urine Appearance Cloudy A (Clear) Urine Protein 3+ H (Negative) Urine Blood 3+ H (Negative) Urine Nitrite Positive A (Negative) Urine Bilirubin 2+ H (Negative) Ur Leukocyte Esterase 3+ H (Negative) Urine WBC (Auto) >30 H (0-5) /hpf Urine RBC (Auto) >30 H (0-4) /hpf U Epithel Cells (Auto) >30 H (0-5) /lpf Urine Bacteria (Auto) 1+ H (Negative) Diagnostic Findings Abdomen/Pelvis CT 04/02/23 11:24 CT OF THE ABDOMEN AND PELVIS WITHOUT CONTRAST CLINICAL HISTORY: Abdominal pain, leukocytosis, recent surgery COMPARISON STUDY: CT of the abdomen and pelvis June 30, 2020. TECHNIQUE: Axial images of the abdomen and pelvis were obtained without IV contrast. Images were reviewed in the axial, sagittal, and coronal planes. Automated exposure control was utilized for the study. A dose lowering technique was utilized adhering to the principles of ALARA. FINDINGS: There is mild elevation of the right hemidiaphragm. Subpleural right lower lung opacities represent atelectasis. No pneumatosis or portal venous gas is present. There are numerous gallstones within the gallbladder. There is no evidence for acute cholecystitis. A punctate left renal calculus is present. There are no ureteral calculi. There is no hydronephrosis. Unenhanced images of liver, spleen, adrenal glands and pancreas are unremarkable. Postoperative findings consistent with ventral hernia repair with mesh are noted. Infiltration and a small amount of fluid and gas within the right anterior pelvic wall is likely postsurgical. There is slight asymmetric thickening of the inferior right rectus muscle. This may reflect trace blood products. No large hematoma is noted. However, there is moderate right pelvic infiltration. A small elongated fluid collection along the right aspect of the bladder on image 335 of 425 measures 7 x 2.6 cm. This contains a locule of gas. In addition, there is gas along the medial base of the cecum. It is unclear whether this is intraluminal. The findings are suboptimally assessed on this unenhanced exam. Fluid extends along the right pelvic sidewall. The proximal to mid small bowel is moderately dilated and fluid-filled. A well-defined transition point is not identified. A small bowel anastomosis is noted. There is also evidence for a sigmoid resection. A small amount of gas within the bladder is noted. IMPRESSION: 1. Moderate right pelvic inflammation. Associated small fluid collection along the right lateral aspect of the bladder, measuring 7 x 2.6 cm, with mild mass effect upon the bladder. Small amount of fluid extending along the right pelvic sidewall. In addition, gas along the medial base of the cecum which may be extraluminal. Although these findings may be postsurgical, an underlying bowel injury could have this imaging appearance. If indicated, a contrast-enhanced CT of the abdomen and pelvis could be obtained. 2. Moderate small bowel dilatation without discrete transition point. This favors an ileus. A partial small bowel obstruction could appear similar. 3. Cholelithiasis. No evidence for acute cholecystitis. ACT 112: Negative or not required by law. Electronically signed by: Yury Grullon M.D. 04/02/2023 1:08 PM Code Status & VTE Plan Code Status Full code VTE Prophylaxis Plan VTE Prophylaxis will be ordered: Yes Supervising Physician Co-Signing Physician Notes Patient seen and examined, chart reviewed, case discussed with Jose Richardson PA-C. All labs and images reviewed. 57yo F with a PMHx of abdominal sling surgery, multiple past SBO with adhesional disease requiring transfer, and ileus. Presents with concerns for post-operative infection, gradually worsening abdominal pain without fever/chills/sweats. CT-a/p with standing and gas ddx includes post-op change vs bowel perf. Abd was with generalized tenderness in the lower quadrants bilaterally without guarding/rebound, pt does not appear septic and lactate normal. Discussed imaging and clinical exam with both Urology and General surgery on admission. Consistent with post-operative change, risk of bowel perf is unlikely.OK to admit, NPO, with abx as described above. Serial imaging at 24 hours ordered. If worsening or increased free air will require transfer at that time, for now OK to continue broad abx with Cefepime, Daptomycin, and Flagyl for both suspected post op infection and for GI coverage. Discussed with pt at bedside. On bedside re-evaluation 2x day and evening of admit pt is hemodynamically stable, improved pain on reassment although this is shortly after IV pain control. I agree with the assessment and plan as above except as otherwise noted above. PG Care Time/CCT Total # of Minutes Spent Total Time Spent with Patient: Total time spent is greater than 50% in coordination of care (as documented) at patient's floor/unit and/or counseling patient: Coding [place] [address] INT INP/OBS CARE 3/75MIN Patient Type Established Medical Decision Making High Complexity Diagnoses Abdominal pain R10.9 Leukocytosis D72.829 ISAURA (acute kidney injury) N17.9 Elevated LFTs R79.89 Hypokalemia E87.6
--- NOTE | 2023-04-02 16:33 | Urology Consultation ---
Date of Consultation April 02, 2023 Assessment & Plan (1) Abdominal pain: (2) ISAURA (acute kidney injury): (3) Leukocytosis: (4) UTI (urinary tract infection): Plan 57yo/F who is s/p mid urethral sling with Dr. Sylvester on 03/29/23 admitted with abdominal pain, ISAURA, and concern for infection. CT abdomen pelvis on arrival demonstrated moderate right pelvic inflammation and associated small fluid collection along the right lateral aspect of the bladder, small amount of fluid extending along the right pelvic sidewall, and gas along the medial base of the cecum. Findings may be postsurgical, however an underlying bowel injury could have this imaging appearance. Moderate small bowel dilatation without discrete transition point which favors an ileus. - Afebrile, normotensive, tachycardic. - Labs reviewed - WBC 19.24, Hemoglobin 13.2, Creatinine 2.42. - Urinalysis and right trocar incision site at the right suprapubic area appear infected. - Urine and blood cultures pending. - S/P Ceftriaxone in the ED. Started on Cefepime, Flagyl, and Daptomycin for now to cover all possible sources. - Joshi intact, draining yellow urine. - No acute intervention warranted at this time. - Continue supportive care and broad-spectrum antibiotics, follow cultures. - Maintain Joshi catheter. - General surgery consulted due to concern of bowel injury on CT. - Urology will follow Please see attending note for further details. Attending note: Patient independently assessed, examined, interviewed, and evaluated. Nurse practitioner Janice Pearson was available as carpenters supervisor for vaginal exam portion of the exam. Agree with note as above. Patient's vitals and labs were all reviewed. Pertinent values in the HPI and plan section. Imaging was reviewed interpreted by myself. Imaging was also reviewed with the general surgery team. Patient does appear to have gas within the cecum reviewed area of possible concern on CT scan. Also reviewed patient's likely ileus. Did discuss possibility of small bowel obstruction which patient does have history of. Discussed findings extensively with patient and family. Reviewed with nurse practitioner as well as consulting physicians/team. Patient's complicated medical and surgical history was reviewed and summarized a sherley. Patient's surgical, medical, social, and family history were all reviewed with pertinent values as above. Patient on examination has a area of inflamed and slightly indurated with significant tenderness over the area near the right trocar site within the mons pubis region. No obvious fluctuance was appreciated. Area was erythematous with possible cellulitis. Patient has been discharged on Bactrim and had been given appropriate preoperative antibiotics. Did discuss possibility of resistant infection especially with patient's complicated surgical history in the past. Reviewed extensively different possible issues and concerns. Patient has been dealing with increasing tenderness and discomfort. On CT examination there also appears to be a fluid collection on the right pelvic wall possibly a hematoma versus seroma. Concern for possible subcutaneous gas though this may be postsurgical. Reviewed extensively different options. Patient is currently on broad-spectrum antibiotics with plans to de-escalate depending on culture results. Did discuss different options for area of concern within the subcutaneous tissue as well as the erythematous and indurated area on the pubic region. Discussed possible options including surgical drainage versus washout versus I&D versus aspiration. At this point discussed utilization of antibiotics with plan for possible drainage if area of fluctuance or abscess formation is discovered. Patient's current ileus may limit options for contrasted imaging of the bowel. Discussed this with patient. We will plan to allow bowel rest and decompression of the system with plans to monitor for resolving ileus. Patient with ISAURA as well. Did not appear to be in retention however does have UA which is positive for nitrites. Concern for possible urinary infection. Joshi catheter was placed and dark but clear urine was appreciated no obvious hematuria or other major issue. Discussed decompression of the urinary system with bowel rest and broad-spectrum antibiotics. We will plan to monitor patient closely. We will continue to follow during hospitalization for developing other issues and major concern. We will likely need repeat imaging in the coming days depending on if issue improves or worsens. Patient has been afebrile and denies fever or chills. Patient is currently not having flatus and has not had bowel movements since the weekend. Consistent with ongoing issues such as ileus. We will plan for close monitoring and observation. History of Present Illness History of Present Illness 57 year old female with a PMH significant for previous hysterectomy complicated by bowel perforation approximately 10 yrs ago ago [facility], recurrent SBO, anxiety/depression, photodermatitis/Urticaria and urinary urgency/stress incontinence S/P Cystoscopy, Mid Urethral Sling with Dr. Sylvester on 03/29/23 who presented to the [facility] ED on 04/02 for uncontrolled post-operative pain. Patient reported she developed significant suprapubic and abdominal discomfort. She had some nausea and vomiting yesterday. She also reports a green vaginal discharge yesterday but nothing today. On arrival to the ED, she was afebrile and tachycardic, but otherwise stable. Labs were notable for leukocytosis of 19, hemoglobin 13.2, creatinine 2.42. Urinalysis concerning for infection with 3+ blood, positive nitrate, 3+ LE, 1+ bacteria. CT abdomen pelvis without contrast demonstrated moderate right pelvic inflammation and associated small fluid collection along the right lateral aspect of the bladder, small amount of fluid extending along the right pelvic sidewall, gas along the medial base of the cecum. Findings may be postsurgical, however an underlying bowel injury could have this imaging appearance. Moderate small bowel dilatation without discrete transition point which favors an ileus. She was given ceftriaxone, morphine, Zofran. A Joshi catheter was placed in the ED. CT abdomen pelvis- 1. Moderate right pelvic inflammation. Associated small fluid collection along the right lateral aspect of the bladder, measuring 7 x 2.6 cm, with mild mass effect upon the bladder. Small amount of fluid extending along the right pelvic sidewall. In addition, gas along the medial base of the cecum which may be extraluminal. Although these findings may be postsurgical, an underlying bowel injury could have this imaging appearance. If indicated, a contrast-enhanced CT of the abdomen and pelvis could be obtained. 2. Moderate small bowel dilatation without discrete transition point. This favors an ileus. A partial small bowel obstruction could appear similar. 3. Cholelithiasis. No evidence for acute cholecystitis. Patient examined at bedside in the ED with Dr. Sylvester. Awake, resting in bed on arrival. at bedside. No acute distress. Appears uncomfortable. Joshi intact, draining yellow urine. Allergies Allergy/AdvReac Type Severity Reaction Status Date / Time codeine Allergy Mild "can't Verified 03/29/23 09:29 remember reaction" Home Medications Medication Instructions Recorded Confirmed Type multivitamin (Daily Multi-Vitamin 1 tab PO DAILY #30 tabs 12/11/18 04/02/23 Rx tablet) needle (disp) 25 gauge 25 gauge x #100 ea 12/11/18 01/25/23 Rx 5/8" (BD Regular Bevel [place]) bupropion HCl 150 mg 24 hr tablet, 150 mg PO BID 04/14/19 04/02/23 History extended release melatonin 10 mg tablet 30 mg PO HS PRN Sleep 04/14/19 04/02/23 History amitriptyline 50 mg tablet 50 mg PO HS 06/30/20 04/02/23 History atorvastatin 10 mg tablet (Lipitor) 10 mg PO HS 06/30/20 04/02/23 History ondansetron 4 mg disintegrating 4 mg PO Q6H PRN nausea and 06/30/20 04/02/23 Rx tablet vomiting #12 tabs estradiol 0.075 mg/24 hr 1 patch transdermal 2XWK #24 ea 01/19/22 04/02/23 Rx semiweekly transdermal patch doxepin 10 mg capsule 10 mg PO HS #90 caps 07/17/22 04/02/23 Rx epinephrine 0.3 mg/0.3 mL 0.3 mg (0.3 mL) IM Q15M PRN 07/27/22 04/02/23 Rx injection, auto-injector (EpiPen) anaphylaxis 3 doses #1 ea omalizumab 150 mg/mL subcutaneous See Rx Instructions .Route 11/10/22 04/02/23 Rx syringe (Xolair) .COMPLEX ##2 omeprazole 20 mg capsule,delayed 20 mg PO QAM 03/16/23 04/02/23 History release sumatriptan succinate 25 mg tablet 25 mg PO UD PRN migraine headache 03/16/23 04/02/23 History (Imitrex) docusate sodium 100 mg capsule 100 mg PO BID PRN constipation #30 03/29/23 04/02/23 Rx caps oxycodone-acetaminophen 7.5 mg-325 1 tab PO Q8H PRN pain #7 tabs 03/29/23 04/02/23 Rx mg tablet (Percocet) phenazopyridine 200 mg tablet 200 mg PO Q8H PRN pain #10 tabs 03/29/23 04/02/23 Rx (Pyridium) sulfamethoxazole 800 1 tab PO Q12H #10 tabs 03/29/23 04/02/23 Rx mg-trimethoprim 160 mg tablet (Bactrim DS) tamsulosin 0.4 mg capsule 0.4 mg PO HS #30 caps 03/29/23 04/02/23 Rx levocetirizine 5 mg tablet 5 mg PO DAILY 04/02/23 04/02/23 History topiramate 50 mg tablet 50 mg PO DAILY 04/02/23 04/02/23 History Patient History Medical History Chronic idiopathic urticaria follows with [facility] [employer] [employer]; sx controlled on Xolair Nausea and vomiting after administration of anesthetic agent GERD (gastroesophageal reflux disease) Postmenopausal HRT (hormone replacement therapy) Obesity Depression Angioedema follows with [facility] [employer]; sx controlled on Xolair Migraines Surgical History Hx of colonoscopy H/O basal cell carcinoma excision several History of bilateral breast reduction surgery History of exploratory laparotomy x 5, Colon resection, colostomy with take down and reanastamosis, removal of right ovary and aniceto History of tubal ligation History of hysteroscopy History of dilation and curettage History of knee surgery History of hysterectomy w/ removal of left ovary Family History Father Pancreatic cancer Unknown Hypertension Mother Macular degeneration Denies family history of Ovarian cancer Breast cancer Colorectal cancer Social History Smoking Status: Never smoker Second Hand Exposure: Yes (hx); Do You Dip or Chew Tobacco: No; Hx Alcohol Use: Yes Hx Substance Use: No Preferred Language: Japanese Communication Ability: Effective Abe Teacher Required: No Beliefs That Will Affect Care: None marital status: Current Living Situation: Spouse Feels Safe at Home: Yes Assistive Devices: Glasses Review of Systems Review of Systems: All systems reviewed & are unremarkable except as noted in HPI & below Physical Exam Constitutional: no acute distress Appears uncomfortable Neck: normal visual inspection Respiratory: no respiratory distress and no labored breathing Gastrointestinal (Abdomen): Erythema and edema noted to the right trocar incision site at the right suprapubic area. Tenderness with palpation. No fluctuance. No drainage. Musculoskeletal: Head/Neck/Chest: normocephalic Skin: Warm and dry Neurologic: moves all extremities and awake Psychiatric: A+Ox3, euthymic affect Genitourinary: Joshi draining clear yellow urine Vaginal exam performed in conjunction with Dr. Sylvester. No vaginal discharge or tenderness on exam. Results & Data Vital Signs (Past 12 Hours) Vital Signs Temp Pulse Pulse Resp BP BP Pulse Ox 04/02/23 16:17 112 H 20 131/74 96 04/02/23 15:24 110 H 24 146/85 H 96 04/02/23 14:54 98 H 20 146/85 H 97 04/02/23 12:02 119 H 04/02/23 11:49 115 H 20 131/91 93 04/02/23 09:11 37.0 C 121 H 20 131/63 97 O2 Del Method 04/02/23 16:17 Room Air 04/02/23 15:24 Room Air 04/02/23 14:54 Room Air 04/02/23 12:02 04/02/23 11:49 Room Air 04/02/23 09:11 Room Air PG Care Time/CCT Total # of Minutes Spent Total Time Spent with Patient: Total time spent is greater than 50% in coordination of care (as documented) at patient's floor/unit and/or counseling patient: Coding Level of Care Code 77450 IN/OBS CONSULT LVL 4,60M Diagnoses Abdominal pain R10.9 ISAURA (acute kidney injury) N17.9 Leukocytosis D72.829 UTI (urinary tract infection) N39.0
[2023-04-02] MEDS ORDERED: DAPTOmycin 425 MG in SYRINGE 0 ML IV STA (17:01)
[2023-04-02] MEDS: LACTATED RINGER'S 1,000 ML IV SCH (18:21)
[2023-04-02 18:52] LABS: Magnesium 2.1 mg/dl (1.7-2.4)
--- NOTE | 2023-04-02 18:52 | XRay Report ---
XR chest 1V portable HISTORY: 57 years-old Female infection, rule out pneumonia acute shortness of breath COMPARISON: 03/26/2023 TECHNIQUE: AP view of the chest FINDINGS: Cardiac silhouette is enlarged. Mild right hemidiaphragmatic elevation. Subsegmental bibasilar densit ies with blunting of the costophrenic angles. Pulmonary vascular congestion. Bones appear grossly int act. IMPRESSION: Cardiomegaly with bibasilar atelectasis. ACT 112: Negative or not required by law. The above report was generated using voice recognition software. It may contain grammatical, syntax o r spelling errors. Electronically signed by: Jeronimo Durham M.D. 04/02/2023 6:51 PM
[2023-04-02] MEDS: HYDROmorphone INJ 1 MG/ML SYRINGE IV PRN ×2 (18:56→23:58)
--- NOTE | 2023-04-02 20:37 | Surgery Consultation ---
<Statement entered by Cameron Fine DO - 04/04/23 08:16> This case was discussed with the surgical PA. I agree with the plan. Date of Consultation April 02, 2023 Assessment & Plan (1) Abdominal pain: The patient has been admitted on the hospitalist service. From a surgical perspective we recommend proceeding as follows: Patient has had a CT scan of the abdomen pelvis however contrast was unable to utilize due to acute kidney injury. The patient does have some gas locules noted on her CAT scan and is difficult to ascertain if these are intra or extraluminal. -We therefore recommend keeping the patient n.p.o. and resuscitating with intravenous fluids. -Patient has been placed on broad-spectrum antibiotics in the form of Flagyl, cefepime, and daptomycin which should continue. Blood and urine cultures have been sent and these can be followed and antibiotics to be tailored based on these results. -We will follow serial abdominal exams Serial labs should be followedanalgesics to be provided Antiemetics to be provided Additional recommendations to be forthcoming based on her response to the above as well as serial examinations and serial labs. I discussed case with my attending physician, Dr. Corbin who agrees with the above plan and did not feel emergent surgical intervention was required at this time History of Present Illness Reason for Consultation: Possible bowel perforation History of Present Illness This is a 57-year-old female who underwent a cystoscopy with a urethral sling by Dr. Sylvester on 03/29/2023. Patient says that she has been having ongoing pain since her surgery but is gotten markedly worse over the past 24 to 48 hours. Patient says that she has had persistent nausea and vomiting and occasional sweats and chills. She has not had any fevers. She does report some generalized weakness. She denies any dysuria. The patient does note that she has pain that is worse with movement and improved with lying still. She notes that since her surgery her bowels have been moving with her most recent bowel movement yesterday. She notes that when she did move her bowels there was blood in the commode but she could not ascertain if this was from her bowels or if it was from her urine. Because of patient's ongoing symptomatology she called the [facility] physician group urology answering service the morning of 04/02/2023 and was advised to come to the emergency department Since arrival to the emergency department patient has had labs and imaging which independent reviewed. Chest x-ray did not show any evidence of pneumonia but patient was noted to have bibasilar atelectasis. A CT scan of the abdomen pelvis showed the patient had inflammation in the pelvic region on the right- hand side. There is a small fluid collection along the right lateral aspect of the bladder measuring approximately 7 x 2.6 cm. There is also small amount of fluid extending along the right pelvic sidewall. There is gas along the medial base of the cecum which was potentially felt to be extraluminal. It was difficult to ascertain if these findings were postsurgical in nature or secon norma to an underlying bowel injury. There also still findings consistent with small bowel dilatation consistent with an ileus. Labs include a CBC her white blood cell count was elevated 19.2. Hemoglobin and hematocrit were normal. Platelet count was 4 and 26,000. Chemistry profile showed sodium was 131 with a potassium of 3.3. BUN and creatinine were 35 and 2.4. Patient had a nonelevated lipase. Her bilirubin was not elevated and there was a slight elevation of her AST and ALT at 68 and 69 respectively. There is also an elevation of her alkaline phosphatase at 211. Urinalysis did show cloudy urine which was positive for nitrites and positive for 3+ leukocyte Estrace. There are greater than 30 white blood cells per high-power field and 1+ bacteria. There is no yeast on this study. Just prior to my arrival to see the patient she had received some intravenous Dilaudid. She did not seem to be in any distress at this time Allergies Allergy/AdvReac Type Severity Reaction Status Date / Time codeine Allergy Mild "can't Verified 03/29/23 09:29 remember reaction" Home Medications Medication Instructions Recorded Confirmed Type multivitamin (Daily Multi-Vitamin 1 tab PO DAILY #30 tabs 12/11/18 04/02/23 Rx tablet) needle (disp) 25 gauge 25 gauge x #100 ea 12/11/18 01/25/23 Rx 5/8" (BD Regular Bevel [place]) bupropion HCl 150 mg 24 hr tablet, 150 mg PO BID 04/14/19 04/02/23 History extended release melatonin 10 mg tablet 30 mg PO HS PRN Sleep 04/14/19 04/02/23 History amitriptyline 50 mg tablet 50 mg PO HS 06/30/20 04/02/23 History atorvastatin 10 mg tablet (Lipitor) 10 mg PO HS 06/30/20 04/02/23 History ondansetron 4 mg disintegrating 4 mg PO Q6H PRN nausea and 06/30/20 04/02/23 Rx tablet vomiting #12 tabs estradiol 0.075 mg/24 hr 1 patch transdermal 2XWK #24 ea 01/19/22 04/02/23 Rx semiweekly transdermal patch doxepin 10 mg capsule 10 mg PO HS #90 caps 07/17/22 04/02/23 Rx epinephrine 0.3 mg/0.3 mL 0.3 mg (0.3 mL) IM Q15M PRN 07/27/22 04/02/23 Rx injection, auto-injector (EpiPen) anaphylaxis 3 doses #1 ea omalizumab 150 mg/mL subcutaneous See Rx Instructions .Route 11/10/22 04/02/23 Rx syringe (Xolair) .COMPLEX ##2 omeprazole 20 mg capsule,delayed 20 mg PO QAM 03/16/23 04/02/23 History release sumatriptan succinate 25 mg tablet 25 mg PO UD PRN migraine headache 03/16/23 04/02/23 History (Imitrex) docusate sodium 100 mg capsule 100 mg PO BID PRN constipation #30 03/29/23 04/02/23 Rx caps oxycodone-acetaminophen 7.5 mg-325 1 tab PO Q8H PRN pain #7 tabs 03/29/23 04/02/23 Rx mg tablet (Percocet) phenazopyridine 200 mg tablet 200 mg PO Q8H PRN pain #10 tabs 03/29/23 04/02/23 Rx (Pyridium) sulfamethoxazole 800 1 tab PO Q12H #10 tabs 03/29/23 04/02/23 Rx mg-trimethoprim 160 mg tablet (Bactrim DS) tamsulosin 0.4 mg capsule 0.4 mg PO HS #30 caps 03/29/23 04/02/23 Rx levocetirizine 5 mg tablet 5 mg PO DAILY 04/02/23 04/02/23 History topiramate 50 mg tablet 50 mg PO DAILY 04/02/23 04/02/23 History Patient History Medical History Chronic idiopathic urticaria follows with Foot Doctor; sx controlled on Xolair Nausea and vomiting after administration of anesthetic agent GERD (gastroesophageal reflux disease) Postmenopausal HRT (hormone replacement therapy) Obesity Depression Angioedema follows with Foot Doctor; sx controlled on Xolair Migraines Surgical History Hx of colonoscopy H/O basal cell carcinoma excision several History of bilateral breast reduction surgery History of exploratory laparotomy x 5, Colon resection, colostomy with take down and reanastamosis, removal of right ovary and aniceto History of tubal ligation History of hysteroscopy History of dilation and curettage History of knee surgery History of hysterectomy w/ removal of left ovary Family History Father Pancreatic cancer Unknown Hypertension Mother Macular degeneration Denies family history of Ovarian cancer Breast cancer Colorectal cancer Social History Smoking Status: Never smoker Second Hand Exposure: Yes (hx); Do You Dip or Chew Tobacco: No; Hx Alcohol Use: Yes Hx Substance Use: No Preferred Language: Mauritanian Communication Ability: Effective Real Estate Closing Coordinator Required: No Beliefs That Will Affect Care: None marital status: Current Living Situation: Spouse Feels Safe at Home: Yes Assistive Devices: Glasses Review of Systems Constitutional: + chills and + fatigue; no fever Ear, Nose, Mouth, Throat: no hearing loss Respiratory: no cough and no dyspnea Cardiovascular: no chest pain Gastrointestinal: + abdominal pain, + nausea and + vomitin g Genitourinary: no dysuria Musculoskeletal: no back pain Integumentary: no rash Neurologic: + generalized weakness Physical Exam Constitutional: well developed and well nourished; no acute distress Eyes: no conjunctival abnormality ENMT: Ears: no hearing impairment and no external ear abnormality Mouth: no oropharynx abnormality Neck: trachea midline Respiratory: normal respiratory effort; no respiratory distress and no labored breathing Cardiovascular: Rate/Rhythm: regular rate and regular rhythm Vessels: dorsalis pedis pulses present and radial pulses present Gastrointestinal (Abdomen): Patient's abdomen is mildly distended but soft and nonrigid. The patient have some generalized pain with palpation throughout her abdomen without rebound tenderness or guarding at the time of my exam. Bowel sounds are present. In the patient's groin she did have 2 small incisions bilaterally from her urethral sling. The right-hand side had an indurated area with erythema and warmth along with tenderness to palpation Musculoskeletal: No calf tenderness Skin: no rashes Neurologic: moves all extremities Psychiatric: A+Ox3, euthymic affect Results & Data Vital Signs (Past 12 Hours) Vital Signs Temp Pulse Pulse Resp BP BP Pulse Ox 04/02/23 20:29 122 H 04/02/23 18:00 115 H 18 108/75 94 04/02/23 16:27 117 H 04/02/23 16:17 112 H 20 131/74 96 04/02/23 15:24 110 H 24 146/85 H 96 04/02/23 14:54 98 H 20 146/85 H 97 04/02/23 12:02 119 H 04/02/23 11:49 115 H 20 131/91 93 04/02/23 09:11 37.0 C 121 H 20 131/63 97 O2 Del Method 04/02/23 20:29 04/02/23 18:00 Room Air 04/02/23 16:27 04/02/23 16:17 Room Air 04/02/23 15:24 Room Air 04/02/23 14:54 Room Air 04/02/23 12:02 04/02/23 11:49 Room Air 04/02/23 09:11 Room Air PG Care Time/CCT Total # of Minutes Spent Total Time Spent with Patient: Total time spent is greater than 50% in coordination of care (as documented) at patient's floor/unit and/or counseling patient: Coding Level of Care Code 21431 IN/OBS CONSULT LVL 5,80M Diagnoses Abdominal pain R10.9
[2023-04-02 22:49] LABS: Basophils # (auto) 0.07 K/uL (0.00-0.20); Basophils % (auto) 0.4 %; Eosinophils # (auto) 0.23 K/uL (0.00-0.50); Eosinophils % (auto) 1.3 %; Hematocrit (blood only) 33.7 % (37.0-47.0); Hemoglobin 11.4 g/dl (12.0-16.0); Immature Granulocytes # (auto) 0.51 K/uL (0.01-0.20); Immature Granulocytes % (auto) 2.9 %; Lymphocytes % (auto) 6.2 %; Mean Corpuscular Hemoglobin 29.7 pg (25.0-34.0); Mean Corpuscular Hgb Conc 33.8 g/dL (32.0-36.0); Mean Corpuscular Volume 87.8 fL (80.0-100.0); Mean Platelet Volume 9.1 fL (9.4-12.4); Monocytes # (auto) 1.22 K/uL (0.11-0.59); Monocytes % (auto) 6.9 %; Neutrophils # (auto) 14.53 K/uL (1.40-6.50); Neutrophils % (auto) 82.3 %; Platelet Count 391 K/uL (130-400); RDW Coefficient of Variation 13.3 % (11.5-14.5); RDW Standard Deviation 42.9 fL (36.4-46.3); Red Blood Count 3.84 M/uL (4.20-5.40); White Blood Count 17.66 K/ul (4.8-10.8)
[2023-04-02 22:55] LABS: Albumin Globulin Ratio 0.9 (0.9-2); Albumin Level 3.1 gm/dl (3.4-5.0); BUN Creatinine Ratio 15.7 (10-20); Bilirubin,Total 0.8 mg/dl (0.2-1.0); Calcium 8.6 mg/dl (8.6-10.3); Est GFR (African American) 36.1 ml/min; Est GFR (Non-African American) 31.1 ml/min; Globulin 3.4 gm/dl (2.5-4.0); Potassium 3.2 mmol/L (3.5-5.1); Total Protein 6.5 gm/dl (6.0-8.3)
[2023-04-03] MEDS: metroNIDAZOLE 500 MG/100 ML BAG IV SCH ×3 (00:03→16:42)
[2023-04-03] MEDS: CEFEPIME 1,000 MG in SYRINGE 0 ML IV SCH ×2 (03:10→16:42)
[2023-04-03] MEDS ORDERED: CEFEPIME 2,000 MG in SYRINGE 0 ML IV SCH (04:00)
[2023-04-03 04:29] LABS: Basophils # (auto) 0.08 K/uL (0.00-0.20); Basophils % (auto) 0.5 %; Eosinophils # (auto) 0.22 K/uL (0.00-0.50); Eosinophils % (auto) 1.3 %; Hematocrit (blood only) 34.8 % (37.0-47.0); Hemoglobin 11.9 g/dl (12.0-16.0); Immature Granulocytes # (auto) 0.64 K/uL (0.01-0.20); Immature Granulocytes % (auto) 3.8 %; Lymphocytes # (auto) 1.04 K/uL (1.20-3.40); Lymphocytes % (auto) 6.2 %; Mean Corpuscular Hemoglobin 29.9 pg (25.0-34.0); Mean Corpuscular Hgb Conc 34.2 g/dL (32.0-36.0); Mean Corpuscular Volume 87.4 fL (80.0-100.0); Monocytes # (auto) 1.35 K/uL (0.11-0.59); Monocytes % (auto) 8.1 %; Neutrophils # (auto) 13.43 K/uL (1.40-6.50); Neutrophils % (auto) 80.1 %; Platelet Count 351 K/uL (130-400); RDW Coefficient of Variation 13.5 % (11.5-14.5); RDW Standard Deviation 43.5 fL (36.4-46.3); Red Blood Count 3.98 M/uL (4.20-5.40); White Blood Count 16.76 K/ul (4.8-10.8)
[2023-04-03] MEDS: HYDROmorphone INJ 1 MG/ML SYRINGE IV PRN ×2 (04:31→07:49)
[2023-04-03] MEDS: LACTATED RINGER'S 1,000 ML IV SCH (04:32)
[2023-04-03 04:45] LABS: Albumin Globulin Ratio 0.8 (0.9-2); Albumin Level 2.9 gm/dl (3.4-5.0); Bilirubin,Total 0.8 mg/dl (0.2-1.0); Calcium 8.7 mg/dl (8.6-10.3); Creatinine Clr Calc Pharmacy 42.8 ml/min; Est GFR (African American) 40.4 ml/min; Est GFR (Non-African American) 34.9 ml/min; Globulin 3.5 gm/dl (2.5-4.0); Potassium 3.3 mmol/L (3.5-5.1); Total Protein 6.4 gm/dl (6.0-8.3)
[2023-04-03 04:53] LABS: Prothrombin Time 11.4 Seconds (9.0-12.0)
[2023-04-03] MEDS ORDERED: HYDROmorphone INJ 0.5 MG/0.5 ML SYR IV STA (06:44)
--- NOTE | 2023-04-03 07:38 | Urology Progress Note ---
Date of Service April 03, 2023 Assessment & Plan (1) Abdominal pain: (2) ISAURA (acute kidney injury): (3) Leukocytosis: (4) UTI (urinary tract infection): Plan 57yo/F who is s/p mid urethral sling with Dr. Sylvester on 03/29/23 admitted with abdominal pain, ISAURA, and concern for infection. CT abdomen pelvis on arrival demonstrated moderate right pelvic inflammation and associated small fluid collection along the right lateral aspect of the bladder, small amount of fluid extending along the right pelvic sidewall, and gas along the medial base of the cecum. Findings may be postsurgical, however an underlying bowel injury could have this imaging appearance. Moderate small bowel dilatation without discrete transition point which favors an ileus. - Plan of care reviewed with Dr. Sylvester. - Afebrile, normotensive, tachycardic. - Labs reviewed - WBC 19.24- 16.76, Hemoglobin 11.9, Creatinine downtrending 2.42 -1.62 today. - Urinalysis and right trocar incision site at the mons pubis region appear infected. - Urine and blood cultures pending. - On Cefepime, Flagyl, and Daptomycin for now to cover all possible sources. - Joshi intact and draining. - CT reviewed and there appears to be a fluid collection on the right pelvic wall possibly a hematoma versus seroma. Concern for possible subcutaneous gas though this may be postsurgical. - Patient on examination has a area of inflamed, indurated, and tender over the area near the right trocar site within the mons pubis region. Discussed possible options including surgical drainage vs I&D vs aspiration at bedside. - General surgery consulted d/t concern of bowel injury, suspected postop ileus - No emergent surgical intervention warranted. Continue with conservative management. - For now, recommend decompression of the urinary system with Joshi catheter, bowel rest, supportive care, and broad-spectrum antibiotics. - KUB ordered this morning. - Urology will follow - Pt reassessed this morning. - KUB reviewed - Numerous distended loops of small bowel measure up to 46 mm. - Has had significant abdominal pain and nausea this morning. - CT abd pelvis with oral con ordered. - Will continue to follow Attending note: Patient independently assessed, examined, interviewed, and evaluated. Agree with note as above. Patient's vitals and labs were all reviewed. Pertinent values in the HPI and plan section. Imaging was reviewed interpreted by myself. Agree with read. Vitals were reviewed. Discussed findings extensively with patient and family. Reviewed with nurse practitioner as well as consulting physicians/team. Discussed findings on patient's imaging. Still has signs of likely ileus no obvious signs of transition point that would be consistent with small bowel obstruction. Patient does have continued air collection near the cecal region. Also has expanding air and signs of infections in the right groin. Extensively reviewed findings with patient. Discussed current issues major concerns has been related to the patient's ongoing issues with pain and discomfort in the groin region. Has increased in severity. Has become a consistent bother and pain. The has had increased erythematous changes as well as induration. Does not have considerable fluctuance on examination patient still had considerable tenderness and worsening induration. Discussed options with patient and is interested in proceeding with a bedside incision and drainage please see the bottom portion of the note for that full procedure report. Also extensively reviewed findings on imaging. Discussed concerns related to ongoing ileus and an NG tube is being placed by the general surgery team. We have been in close contact in consultation with the general surgery team have extensively reviewed the options. General surgery is reaching out to her previous general surgeons to get an update on the patient's previous issues. Did discuss possible need for exploration and possible procedure Reviewed possible need for exploration/explantation of the mesh material due to ongoing infectious issues. Discussed extensively with patient. Questions were answered. Discussed neck steps in management including options with the groin abscess. Patient was agreeable to proceed with bedside incision and drainage. Patient is already on broad-spectrum antibiotics. Discussed need to heal by secondary intent. Patient has previously had wound vacs. And has dealt with local wound care. We will plan on continuing to closely monitor. Patient vital signs are still stable. Patient has not developed significant or severe fevers or other problems. Plan to continue with conservative manage for ileus with NG decompression. We will plan to continue to monitor closely. Completion of incision and drainage of wound was able to reduce pressure in the groin region. Patient did feel better after completion. NG tube was removed being placed directly afterwards. BEDSIDE INCISION and DRAINAGE of RIGHT GROIN ABSCESS Patient was consented. Patient was prepped and draped in the regular sterile f ashion. The correct patient, site, location, and procedure were confirmed. Anesthesia: 1% lidocaine 20 cc With the consent for bedside procedure completed and the patient prepped, the skin was marked. Local 1% lidocaine was injected into the area as well as into the deep and surrounding tissue. A 11 blade scalpel was used to make an incision in over top of the previous incision site. The suture from the procedure previously had been removed after clipping the edge of the suture. A swab x2 was completed and sent for microanalysis. A moderate amount of purulent appearing material as well as debris/old blood appear to drain from the site. A probe was utilized to probe the wound itself. Loculations were discovered and additional pockets of fluid were able to be drained. Sterile saline was used to irrigate the wound multiple times. The entire wound tract was probed. No additional pockets of fluid were discovered as well as no additional loculations. The patient did have some relief of the pressure and discomfort in the area. The area was then washed out numerous times with the sterile saline. This was flushed multiple times. No major bleeding was noted. No additional fluid or drainage. After adequate irrigation the wound was packed using iodoform packing. The packing had been folded in half and the packing placed to allow both ends to remain outside of the wound. No major bleeding was encountered. No additional bleeding or other issues. No major complications or other problems. At this point the patient was cleaned the Betadine prep was cleaned away from the patient. She had tolerated the procedure without major issues or problems. A bandage of 4 x 4's was placed over the wound. The patient tolerated the procedure without problems or issues. Total wound size and cavity was approximately 2.5 x 1.1 x 6.8 cm. Admission and Anticipated Discharge Date Admission Date: April 02, 2023 Subjective Patient examined at bedside in the ED. Awake, resting in bed on arrival. No acute distress. at bedside. Joshi intact. Denies fevers or chills. Some nausea, no vomiting. Reports worsening abd discomfort today. Has been NPO. Review of Systems Constitutional: as per Subjective / HPI Gastrointestinal: as per Subjective / HPI Genitourinary: as per Subjective / HPI Physical Exam Constitutional: no acute distress Respiratory: normal respiratory effort; no respiratory distress and no labored breathing Gastrointestinal (Abdomen): Abd mildly distended but soft and nonrigid. Generalized pain with palpation throughout abdomen. Right trocar site within the mons pubis region erythematous and tender over the area. No obvious fluctuance was appreciated. No drainage. Skin: no rashes Neurologic: moves all extremities Psychiatric: A+Ox3, euthymic affect Genitourinary: Joshi intact Results & Data Vital Signs (Past 12 Hours) Vital Signs Temp Pulse Pulse Resp BP Pulse Ox O2 Del Method 04/03/23 07:07 115 H 04/03/23 07:00 36.8 C 108 H 22 139/89 94 Nasal Cannula 04/03/23 03:09 37.2 C 111 H 20 123/78 95 Nasal Cannula 04/02/23 22:37 117 H 18 126/76 93 Nasal Cannula 04/02/23 22:00 117 H 18 110/66 93 Nasal Cannula 04/02/23 20:29 122 H 04/02/23 20:00 117 H 20 110/66 93 Room Air O2 Flow Rate 04/03/23 07:07 04/03/23 07:00 2 04/03/23 03:09 2 04/02/23 22:37 3 04/02/23 22:00 2 04/02/23 20:29 04/02/23 20:00 PG Care Time/CCT Total # of Minutes Spent Total Time Spent with Patient: Total time spent is greater than 50% in coordination of care (as documented) at patient's floor/unit and/or counseling patient: Coding Level of Care Code 87604 SUB INP/OBS CARE 2/35MIN Diagnoses Abdominal pain R10.9 ISAURA (acute kidney injury) N17.9 Leukocytosis D72.829 UTI (urinary tract infection) N39.0
[2023-04-03] MEDS: ONDANSETRON INJ 2 MG/ML 2 ML VIAL IV PRN ×3 (08:55→23:31)
[2023-04-03] MEDS: D5NSS + 20MEQ KCL 20 MEQ/1,000 ML BAG IV SCH ×2 (08:56→18:42)
[2023-04-03] MEDS: ENOXAPARIN INJ 40 MG/0.4 ML SYR SQ SCH (08:56)
[2023-04-03] MEDS: PANTOprazole 40 MG in SYRINGE 0 ML IV SCH (08:57)
[2023-04-03] MEDS ORDERED: MoRPHine SULFATE 2 MG/ML CARP ONE (08:58)
--- NOTE | 2023-04-03 10:30 | XRay Report ---
XR KUB/Abdomen 1 view CLINICAL HISTORY: abd pain, ileus TECHNIQUE: 1 view of the abdomen was obtained. Comparison: Comparison is made to chest radiograph 06/13/2017 FINDINGS: Lung bases are unremarkable. The osseous structures are grossly unremarkable. Numerous distended loop s of small bowel measure up to 46 mm in diameter. Small stool burden is seen. IMPRESSION: Numerous distended loops of small bowel measure up to 46 mm. ACT 112: Negative or not required by law. Electronically signed by: Davion Schroeder M.D. 04/03/2023 10:29 AM
[2023-04-03] MEDS: MoRPHine SULFATE 2 MG/ML CARP IV PRN ×2 (12:29→20:22)
--- NOTE | 2023-04-03 12:57 | Surgery Progress Note ---
<Statement entered by Cameron Fine, DO - 04/04/23 08:19> The patient was seen and examined. Studies as discussed below. NGT ordered. Will plan for exploration tomorrow. Date of Service April 03, 2023 Assessment & Plan (1) Abdominal pain: Plan: Patient is post operative cystoscopy mid urethral sling 03/29/23 Patient seen in ER Reports increasing abdominal pain 8/10 Had some vomiting this AM Denies flatus Reports greenish vaginal discharge WBC 16.7 Abdomen is distended, firm and painful to palpation, pt has a redness in suprapubic area Patient verbalized extensive history of past abdominal surgeries, hysterectomy, small bowel resection, ileostomy with reversal, hernia repair with possible mesh. CT scan 04/02/23 1. Moderate right pelvic inflammation. Associated small fluid collection along the right lateral aspect of the bladder, measuring 7 x 2.6 cm, with mild mass effect upon the bladder. Small amount of fluid extending along the right pelvic sidewall. In addition, gas along the medial base of the cecum which may be extraluminal. Although these findings may be postsurgical, an underlying bowel injury could have this imaging appearance. If indicated, a contrast-enhanced CT of the abdomen and pelvis could be obtained. 2. Moderate small bowel dilatation without discrete transition point. This favors an ileus. A partial small bowel obstruction could appear similar. KUB from today IMPRESSION: Numerous distended loops of small bowel measure up to 46 mm. Patient has suspected postoperative ileus Patient ordered to have a CT scan with Oral contrast today to rule out bowel in jury otherwise keep NPO If nausea and vomiting continue would recommend NG tube Continue IV antibiotics IV analgesics Case discussed with covering surgeon Dr. Fine Further recommendations will be forthcoming pending CT scan results. Addendum : CT scan from this afternoon reads IMPRESSION: 1. Extensive pelvic and lower abdominal inflammation, slightly increased since prior exam. Increase in multiple extraluminal locules of gas adjacent to the cecum. In addition, extraluminal gas extends into the right retroperitoneum as well as the anterior abdominal wall. These findings are highly suspicious for a bowel perforation and the cecum is the suspected source. A small bowel perforation could result in a similar imaging appearance. Increase in size of the right pelvic fluid collection, measuring 7.1 x 3.2 cm. 2. No change in moderate small bowel dilatation without discrete transition point. This favors an ileus. A partial small bowel obstruction could appear similar. Interval development of trace interloop ascites 3. Cholelithiasis. Mild gallbladder distention. No pericholecystic infiltration to strongly suggest acute cholecystitis. Patient is scheduled for a Exploratory laparoscopy, possible laparotomy, possible bowel resection, possible ostomy for 04/04/[address] Fine and Dr. Pearson. Continue IV antibiotics, IV fluids, IV analgesics, Ng tube, if patients condition deteriorates over night please notify on-call surgeon Admission and Anticipated Discharge Date Admission Date: April 02, 2023 Subjective Patient seen in ER Reports increasing abdominal pain / Had some vomiting this AM Denies flatus Reports greenish vaginal discharge Review of Systems Constitutional: no fever and no chills Cardiovascular: no chest pain Gastrointestinal: + abdominal pain, + bloating, + nausea a nd + vomiting Genitourinary: spence catheter Physical Exam Physical Exam: alert oriented Respiratory: no respiratory distress Cardiovascular: Rate/Rhythm: + tachycardic (107) Gastrointestinal (Abdomen): Inspection/Auscultation: + abdomen distended and + abdominal surgical incision Percussion/Palpation: + abdomen tender, + guarding and + abdomen firm Results & Data Vital Signs (Past 12 Hours) Vital Signs Temp Pulse Pulse Resp BP Pulse Ox O2 Del Method 04/03/23 12:33 98.6 F 107 H 19 130/85 99 Nasal Cannula 04/03/23 08:00 Nasal Cannula 04/03/23 07:07 115 H 04/03/23 07:00 98.2 F 108 H 22 139/89 94 Nasal Cannula 04/03/23 03:09 99.0 F 111 H 20 123/78 95 Nasal Cannula O2 Flow Rate 04/03/23 12:33 2 04/03/23 08:00 2 04/03/23 07:07 04/03/23 07:00 2 04/03/23 03:09 2 Diagnostic Findings [place], [place] [phone] CT Scan Report Patient: SWATI LYN Admit Date: 04/02/23 MR#: [id number] Address1: [facility] [place] Acct ID:[id number] Address2: Date: 1965 [facility] Zip: [place] [address] Age: 57 Location: ED Sex: F Room/Bed: Att Phy: Diagnosis: ABD PAIN,SURG ON Phy: Aleksander Rodriguez D.O. Service Date: 04/02/23 [facility] Phy: Interpreting Phy: Yury Grullon MDAdmit Phy: Ordering Phy: Annemarie Ponce PA-C cc: ~ CT OF THE ABDOMEN AND PELVIS WITHOUT CONTRAST CLINICAL HISTORY: Abdominal pain, leukocytosis, recent surgery COMPARISON STUDY: CT of the abdomen and pelvis June 30, 2020. TECHNIQUE: Axial images of the abdomen and pelvis were obtained without IV contrast. Images were reviewed in the axial, sagittal, and coronal planes. Automated exposure control was utilized for the study. A dose lowering technique was utilized adhering to the principles of ALARA. FINDINGS: There is mild elevation of the right hemidiaphragm. Subpleural right lower lung opacities represent atelectasis. No pneumatosis or portal venous gas is present. There are numerous gallstones within the gallbladder. There is no evidence for acute cholecystitis. A punctate left renal calculus is present. There are no ureteral calculi. There is no hydronephrosis. Unenhanced images of liver, spleen, adrenal glands and pancreas are unremarkable. Postoperative findings consistent with ventral hernia repair with mesh are noted. Infiltration and a small amount of fluid and gas within the right anterior pelvic wall is l ikely postsurgical. There is slight asymmetric thickening of the inferior right rectus muscle. This may reflect trace blood products. No large hematoma is noted. However, there is moderate right pelvic infiltration. A small elongated fluid collection along the right aspect of the bladder on image 335 of 425 measures 7 x 2.6 cm. This contains a locule of gas. In addition, there is gas along the medial base of the cecum. It is unclear whether this is intraluminal. The findings are suboptimally assessed on this unenhanced exam. Fluid extends along the right pelvic sidewall. The proximal to mid small bowel is moderately dilated and fluid-filled. A well-defined transition point is not identified. A small bowel anastomosis is noted. There is also evidence for a sigmoid resection. A small amount of gas within the bladder is noted. IMPRESSION: 1. Moderate right pelvic inflammation. Associated small fluid collection along the right lateral aspect of the bladder, measuring 7 x 2.6 cm, with mild mass effect upon the bladder. Small amount of fluid extending along the right pelvic sidewall. In addition, gas along the medial base of the cecum which may be extraluminal. Although these findings may be postsurgical, an underlying bowel injury could have this imaging appearance. If indicated, a contrast-enhanced CT of the abdomen and pelvis could be obtained. 2. Moderate small bowel dilatation without discrete transition point. This favors an ileus. A partial small bowel obstruction could appear similar. 3. Cholelithiasis. No evidence for acute cholecystitis. ACT 112: Negative or not required by law. Electronically signed by: Yury Grullon M.D. 04/02/2023 1:08 PM Dictated: 04/02/23 1240 Transcribed: 04/02/23 1305 Diagnostics Reports SWATI LYN [id number] Allergy/Adv: codeine Close KUB X-Ray (Signed) Davion Schroeder - 04/03/23 Chest X-Ray (Signed) Jeronimo Durham - 04/02/23 Abdomen/Pelvis CT (Signed) Yury Grullon - 04/02/23 Chest X-Ray (Signed) Jeronimo Durham - 03/26/23 Mammogram Screening (Signed) Rae Butler - 04/26/[address] (Signed) Jeronimo Durham - 12/23/21 Venous Doppler Study (Signed) Jeronimo Durham - 12/21/21 Mammogram Screening (Signed) Ami Arthur - 04/20/21 Sternum X-Ray (Signed) Yury Grullon - 08/12/[address] (Signed) Beto Morrow - 06/30/[address] (Signed) Odalys,Beto - 06/30/[address] (Signed) Odalys,Beto - 06/30/[address] (Signed) Yury Grullon - 06/30/[address] (Signed) Yury Grullon - 06/30/20 Abdomen/Pelvis CT (Signed) Yury Grullon - 06/30/20 Mammogram Screening (Signed) Rae Butler - 04/14/20 Extremity Ultrasound (Signed) Thomas Serrano - 12/19/19 Abdomen/Pelvis CT (Signed) Bo Durand - 04/14/19 Mammogram Screening (Signed) Mónica Doshi - 04/08/19 Mammogram Screening (Signed) Rae Butler - 04/05/18 Knee X-Ray 03/21/18 Knee X-Ray 02/20/18 Knee X-Ray (Signed) BurtanthonyJethro arguello - 02/04/18 Xray Report 06/13/17 Xray Report 06/13/17 [employer] [place], [place] [phone] XRay Report Patient: SWATI LYN Admit Date: 04/02/23 MR#: [id number] Address1: [address] [facility] Acct ID:[id number] Address2: Date: 1965 [facility] Zip: [place] [address] Age: 57 Location: [facility] Sex: F Room/Bed: [facility] 1-7 Att Phy: Semaj Mercedes MD Diagnosis: UTI, POPST PROCEDURAL INFECTION Linda Phy: Aleksander Rodriguez,D.O. Service Date: 04/03/23 Fam Phy: Interpreting Phy: Davion Schroeder MDAdmit Phy: Semaj Mercedes MD Ordering Phy: Janice Pearson CRNP cc: ~ XR KUB/Abdomen 1 view CLINICAL HISTORY: abd pain, ileus TECHNIQUE: 1 view of the abdomen was obtained. Comparison: Comparison is made to chest radiograph 06/13/2017 FINDINGS: Lung bases are unremarkable. The osseous structures are grossly unremarkable. Numerous distended loops of small bowel measure up to 46 mm in diameter. Small stool burden is seen. IMPRESSION: Numerous distended loops of small bowel measure up to 46 mm. ACT 112: Negative or not required by law. Electronically signed by: Davion Schroeder M.D. 04/03/2023 10:29 AM Dictated: 04/03/231023 Transcribed: 04/03/231023 Allergy/Adv: codeine Close Abdomen/Pelvis CT (Signed) Yury Grullon - 04/03/23 KUB X-Ray (Signed) Davion Schroeder - 04/03/23 Chest X-Ray (Signed) Jeronimo Durham - 04/02/23 Abdomen/Pelvis CT (Signed) Yury Grullon - 04/02/23 Chest X-Ray (Signed) Jeronimo Durham - 03/26/23 Mammogram Screening (Signed) Rae Butler - 04/26/[address] (Signed) Jeronimo Durham - 12/23/21 Venous Doppler Study (Signed) Jeronimo Durham - 12/21/21 Mammogram Screening (Signed) Ami Arthur - 04/20/21 Sternum X-Ray (Signed) Yury Grullon - 08/12/[address] (Signed) Odalys,Beto - 06/30/[address] (Signed) Odalys,Beto - 06/30/[address] (Signed) Odalys,Beto - 06/30/[address] (Signed) Yury Grullon - 06/30/[address] (Signed) Yury Grullon - 06/30/20 Abdomen/Pelvis CT (Signed) Yury Grullon - 06/30/20 Mammogram Screening (Signed) Rae Butler - 04/14/20 Extremity Ultrasound (Signed) Thomas Serrano - 12/19/19 Abdomen/Pelvis CT (Signed) Bo Durand - 04/14/19 Mammogram Screening (Signed) Mónica Doshi - 04/08/19 Mammogram Screening (Signed) Rae Butler - 04/05/18 Knee X-Ray 03/21/18 Knee X-Ray 02/20/18 Knee X-Ray (Signed) Jethro Mckeon - 02/04/18 Xray Report 06/13/17 Xray Report 06/13/17 [facility] [place] [phone] CT Scan Report Patient: SWATI LYN Admit Date: 04/02/23 MR#: [id number] Address1: [address] [place] [address] Acct ID:[id number] Address2: Date: 1965 [facility] [place] [place] [address] Age: 57 Location: [facility] Sex: F Room/Bed: [facility] 1-7 Att Phy: Semaj Mercedes MD Diagnosis: UTI, POPST PROCEDURAL INFECTION Linda Phy: Aleksander RodriguezD.O. Service Date: 04/03/23 Fam Phy: Interpreting Phy: Yury Grullon MDAdmit Phy: Semaj Mercedes MD Ordering Phy: Janice Pearson CRNP cc: ~ CT OF THE ABDOMEN AND PELVIS WITH ORAL CONTRAST CLINICAL HISTORY: Abdominal pain. Evaluate for cecal perforation. COMPARISON STUDY: CT of the abdomen and pelvis April 02, 2023. KUB performed earlier today. TECHNIQUE: Axial images of the abdomen and pelvis were obtained without IV contrast. Oral contrast was administered. Automated exposure control was utilized for the study. A dose lowering technique was utilized adhering to the principles of ALARA. FINDINGS: Subpleural opacities within the lower lungs favor atelectasis. Elevation of the right hemidiaphragm is again noted. There are gallstones within the gallbladder. The gallbladder is mildly distended. There is no pericholecystic infiltration. Unenhanced images of the liver, spleen, adrenal glands, kidneys and pancreas are unremarkable with the exception of punctate bilateral renal calculi. There are no ureteral calculi. There is no hydronep hrosis. Spence balloon within the bladder is in place. The bladder is collapsed. Moderate small bowel dilatation is similar to prior exam. Trace interloop ascites has developed. Lower abdominal and pelvic inflammation has slightly increased since prior CT. Gas extending along the anterior abdominal wall is again noted. This was shown on prior exam. There are multiple locules of extraluminal gas adjacent to the cecum which have slightly increased since prior exam. A small amount of extraluminal gas extending within the right retroperitoneum is now noted. This was not evident on prior exam. Gas and fluid containing right pelvic collection has slightly increased in size. This is shown on image 359 of 457 measures 7.1 x 3.2 cm. This has mass effect upon the bladder. Adjacent stranding and fluid has minimally progressed. No new fluid collections are present. IMPRESSION: 1. Extensive pelvic and lower abdominal inflammation, slightly increased since prior exam. Increase in multiple extraluminal locules of gas adjacent to the cecum. In addition, extraluminal gas extends into the right retroperitoneum as well as the anterior abdominal wall. These findings are highly suspicious for a bowel perforation and the cecum is the suspected source. A small bowel perforation could result in a similar imaging appearance. Increase in size of the right pelvic fluid collection, measuring 7.1 x 3.2 cm. 2. No change in moderate small bowel dilatation without discrete transition point. This favors an ileus. A partial small bowel obstruction could appear similar. Interval development of trace interloop ascites 3. Cholelithiasis. Mild gallbladder distention. No pericholecystic infiltration to strongly suggest acute cholecystitis. ACT 112: Negative or not required by law. Electronically signed by: Yury Grullon M.D. 04/03/2023 1:36 PM Dictated: 04/03/231318 Transcribed: 04/03/231318 PG Care Time/CCT Total # of Minutes Spent Total Time Spent with Patient: Total time spent is greater than 50% in coordination of care (as documented) at patient's floor/unit and/or counseling patient: Coding Level of Care Code 76044 SUB INP/OBS CARE 2/35MIN Diagnoses Abdominal pain R10.84 Abdominal location: generalized (1) Abdominal pain Abdominal location: generalized Qualified Code(s): R10.84 - Generalized abdominal pain
--- NOTE | 2023-04-03 13:26 | Hospitalist Progress Note ---
Date of Service April 03, 2023 Assessment & Plan (1) Abdominal pain: Plan: Actually pelvic discomfort after recent cystoscopy and placement of urethral sling. There is some concern for bladder perforation with pericolic fluid. Urology consultation and recommendations appreciated. She remains on intravenous Flagyl, cefepime, daptomycin, day 2. She is currently n.p.o. and on IV fluids. Creatinine has improved down to 1.6. Repeat abdomenpelvis CT scan pending. (2) Leukocytosis: Plan: Due to acute infection. Continue IV antibiotic therapy. Serial labs (3) ISAURA (acute kidney injury): Plan: Continue IV fluids. Monitor intake and output. Serial labs (4) Elevated LFTs: Plan: Minimal. No intervention needed at this time. Serial labs (5) Hypokalemia: Plan: IV supplementation. Serial labs Plan Hopeful discharge back to home soon Admission and Anticipated Discharge Date Admission Date: April 02, 2023 Subjective Alert and oriented. No distress. is at the bedside. Urology consultation and recommendations appreciated. Repeat abdominal pelvic CT scan today, April 03. She remains on Flagyl, cefepime, daptomycin. Urine cultures and blood cultures ordered and pending. White blood cell count is fortunately downtrending. Creatinine improved to 1.6. Review of Systems 2 Review of Systems: Constitutional-no fever or chills ENT-no blurred vision, no double vision, no epistaxis, no sore throat Respiratory-no cough, no wheezing, no shortness of breath Cardiac-no palpitations, no chest pain, no syncope GI-no nausea, vomiting, diarrhea, melena, hematochezia -pelvic area discomfort after recent surgery. No hematuria Musculoskeletal-pelvic area discomfort Skin-no bruising, no rashes, no pruritus Neuro-no isolated weakness, no paresthesia, no weakness Psych-no depression, no anxiety Physical Exam 2 Physical Exam: General-alert and oriented x3, no fevers, no chills HEENT-head atraumatic and normocephalic, pupils equal and reactive to light, extraocular muscles intact Neck-no lymphadenopathy or thyromegaly, trachea midline Chest-clear to auscultation percussion. No rales wheezing or rhonchi Cardiac-regular rate and rhythm, normal S1 and S2 Abdomen-normal bowel sounds, nontender, no hepatosplenomegaly Extremities-no cyanosis, clubbing, or edema Neuro-cranial nerves II through XII intact, motor and sensory function within normal limits, strength symmetrical, no focal deficits Psych-normal affect, normal mood Results & Data Results & Data Vital Signs (Past 12 Hours) Vital Signs Temp Pulse Pulse Resp BP Pulse Ox O2 Del Method 04/03/23 12:41 37 C 107 H 20 130/85 98 Nasal Cannula 04/03/23 12:33 37 C 107 H 19 130/85 99 Nasal Cannula 04/03/23 08:00 Nasal Cannula 04/03/23 07:07 115 H 04/03/23 07:00 36.8 C 108 H 22 139/89 94 Nasal Cannula 04/03/23 03:09 37.2 C 111 H 20 123/78 95 Nasal Cannula O2 Flow Rate 04/03/23 12:41 2 04/03/23 12:33 2 04/03/23 08:00 2 04/03/23 07:07 04/03/23 07:00 2 04/03/23 03:09 2 Laboratory Results 04/03/23 04:09 04/03/23 04:09 PG Care Time/CCT Total # of Minutes Spent Total Time Spent with Patient: Total time spent is greater than 50% in coordination of care (as documented) at patient's floor/unit and/or counseling patient: Coding Level of Care Code 23902 SUB INP/OBS CARE 3/50MIN Diagnoses Abdominal pain R10.84 Abdominal location: generalized Leukocytosis D72.829 Leukocytosis type: unspecified ISAURA (acute kidney injury) N17.9 Elevated LFTs R79.89 Hypokalemia E87.6 (1) Abdominal pain Abdominal location: generalized Qualified Code(s): R10.84 - Generalized abdominal pain (2) Leukocytosis Leukocytosis type: unspecified Qualified Code(s): D72.829 - Elevated white blood cell count, unspecified
--- NOTE | 2023-04-03 13:38 | CT Scan Report ---
CT OF THE ABDOMEN AND PELVIS WITH ORAL CONTRAST CLINICAL HISTORY: Abdominal pain. Evaluate for cecal perforation. COMPARISON STUDY: CT of the abdomen and pelvis April 02, 2023. KUB performed earlier today. TECHNIQUE: Axial images of the abdomen and pelvis were obtained without IV contrast. Oral contrast wa s administered. Automated exposure control was utilized for the study. A dose lowering technique was utilized adhering to the principles of ALARA. FINDINGS: Subpleural opacities within the lower lungs favor atelectasis. Elevation of the right hemid iaphragm is again noted. There are gallstones within the gallbladder. The gallbladder is mildly diste nded. There is no pericholecystic infiltration. Unenhanced images of the liver, spleen, adrenal gland s, kidneys and pancreas are unremarkable with the exception of punctate bilateral renal calculi. Ther e are no ureteral calculi. There is no hydronephrosis. Joshi balloon within the bladder is in place. The bladder is collapsed. Moderate small bowel dilatation is similar to prior exam. Trace interloop a scites has developed. Lower abdominal and pelvic inflammation has slightly increased since prior CT. Gas extending along the anterior abdominal wall is again noted. This was shown on prior exam. There a re multiple locules of extraluminal gas adjacent to the cecum which have slightly increased since deshawn or exam. A small amount of extraluminal gas extending within the right retroperitoneum is now noted. This was not evident on prior exam. Gas and fluid containing right pelvic collection has slightly inc reased in size. This is shown on image 359 of 457 measures 7.1 x 3.2 cm. This has mass effect upon th e bladder. Adjacent stranding and fluid has minimally progressed. No new fluid collections are presen t. IMPRESSION: 1. Extensive pelvic and lower abdominal inflammation, slightly increased since prior exam. Increase i n multiple extraluminal locules of gas adjacent to the cecum. In addition, extraluminal gas extends i nto the right retroperitoneum as well as the anterior abdominal wall. These findings are highly suspi cious for a bowel perforation and the cecum is the suspected source. A small bowel perforation could result in a similar imaging appearance. Increase in size of the right pelvic fluid collection, measur ing 7.1 x 3.2 cm. 2. No change in moderate small bowel dilatation without discrete transition point. This favors an ile us. A partial small bowel obstruction could appear similar. Interval development of trace interloop a scites 3. Cholelithiasis. Mild gallbladder distention. No pericholecystic infiltration to strongly suggest a cute cholecystitis. ACT 112: Negative or not required by law. Electronically signed by: Yury Grullon M.D. 04/03/2023 1:36 PM
[2023-04-03] MEDS ORDERED: LIDOCAINE 1% LOCAL 20 ML VIAL ONE (14:24)
[2023-04-03] MEDS ORDERED: ACETAMINOPHEN 1,000 MG/100 ML VIAL IV PRN (15:45)
[2023-04-03] MEDS: DAPTOmycin 425 MG in SYRINGE 0 ML IV SCH (20:22)
[2023-04-03] MEDS ORDERED: FAMOTIDINE 20 MG in SYRINGE 3 ML IV ONE (23:15)
[2023-04-03] MEDS: ACETAMINOPHEN 1,000 MG/100 ML VIAL IV SCH (23:31)
[2023-04-03] MEDS: MoRPHine SULFATE 4 MG/ML 1 ML CARP\\VIAL IV PRN (23:31)
[2023-04-04] MEDS: metroNIDAZOLE 500 MG/100 ML BAG IV SCH ×3 (03:30→16:42)
[2023-04-04] MEDS: D5NSS + 20MEQ KCL 20 MEQ/1,000 ML BAG IV SCH ×2 (03:31→16:41)
[2023-04-04] MEDS: CEFEPIME 1,000 MG in SYRINGE 0 ML IV SCH (03:31)
[2023-04-04] MEDS: ONDANSETRON INJ 2 MG/ML 2 ML VIAL IV PRN ×4 (03:37→21:30)
[2023-04-04] MEDS: MoRPHine SULFATE 4 MG/ML 1 ML CARP\\VIAL IV PRN ×4 (03:38→22:24)
[2023-04-04] MEDS ORDERED: PANTOprazole 40 MG in SYRINGE 0 ML IV ONE (05:30)
[2023-04-04] MEDS: ACETAMINOPHEN 1,000 MG/100 ML VIAL IV SCH ×3 (06:15→21:24)
[2023-04-04 06:29] LABS: Hematocrit (blood only) 34.3 % (37.0-47.0); Hemoglobin 11.5 g/dl (12.0-16.0); Mean Corpuscular Hemoglobin 29.8 pg (25.0-34.0); Mean Corpuscular Hgb Conc 33.5 g/dL (32.0-36.0); Mean Corpuscular Volume 88.9 fL (80.0-100.0); Platelet Count 375 K/uL (130-400); RDW Standard Deviation 45.7 fL (36.4-46.3); Red Blood Count 3.86 M/uL (4.20-5.40); White Blood Count 16.49 K/ul (4.8-10.8)
[2023-04-04 06:40] LABS: BUN Creatinine Ratio 16.8 (10-20); Calcium 8.8 mg/dl (8.6-10.3); Est GFR (African American) 77.1 ml/min; Est GFR (Non-African American) 66.5 ml/min; Potassium 3.4 mmol/L (3.5-5.1)
--- NOTE | 2023-04-04 06:48 | Hospitalist Progress Note ---
Date of Service April 04, 2023 Assessment & Plan (1) Abdominal pain: Plan: (2) Leukocytosis: (3) ISAURA (acute kidney injury): (4) Elevated LFTs: Plan: s (5) Hypokalemia: Plan Post operative ileus Bowel perforation -Post operative infection S/P Cystoscopy, Mid Urethral Sling with Dr. Sylvester on 03/29 - Suprapubic pain , abdominal distention, bloody BM, urinary frequency - CT Abdomen: 1. Extensive pelvic and lower abdominal inflammation, slightly increased since prior exam. Increase in multiple extraluminal locules of gas adjacent to the cecum. In addition, extraluminal gas extends into the right retroperitoneum as well as the anterior abdominal wall. These findings are highly suspicious for a bowel perforation and the cecum is the suspected source. A small bowel perforation could result in a similar imaging appearance. Increase in size of the right pelvic fluid collection, measuring 7.1 x 3.2 cm. 2. No change in moderate small bowel dilatation without discrete transition point. This favors an ileus. A partial small bowel obstruction could appear similar. Interval development of trace interloop ascites 3. Cholelithiasis. Mild gallbladder distention. No pericholecystic infiltration to strongly suggest acute cholecystitis. Surgery consulted: -Patient schedule for Exploratory laparoscopy, possible laparotomy, possible bowel resection, possible ostomy for 04/04/[address] Fine and Dr. Pearson. Urology consulted: -recommended Joshi catheter, bowel rest, broad spectrum antibiotics -KUB: Numerous distended loops of small bowel measure up to 46 mm. -NGT tube, bowel rest, NPO -Continue IV Cefepime, Daptomycin, Flagyl Continue IV analgesics -CT abdomen with oral contrast: Groin abscess - s/p Bedside incision and drainage of right groin abscess by urology Hypokalemia K: 3.4 Leukocytosis WBC: 16.49 IV antibiotics CBC am ISAURA Elevated LFTs Admission and Anticipated Discharge Date Admission Date: April 02, 2023 Marietta Randolph is a 57 year old female with a PMH significant for previous hysterectomy complicated by bowel perforation approximately 10 yrs ago ago [facility], recurrent SBO, anxiety/depression, photodermatitis/Urticaria (On Xolair), and Urinary Urgency/Stress Incontinence S/P Cystoscopy, Mid Urethral Sling with Dr. Sylvester on 03/29 who presented to the [facility] ED on 04/02 at the recommendation of Dr. Sylvester for uncontrolled post-operative pain. Review of Systems Review of Systems: as per HPI Results & Data Results & Data Vital Signs (Past 12 Hours) Vital Signs Temp Pulse Pulse Resp BP Pulse Ox O2 Del Method 04/04/23 03:00 36.7 C 95 H 18 137/85 95 Room Air 04/03/23 23:00 102 H 04/03/23 22:45 37 C 102 H 18 136/84 94 Room Air 04/03/23 19:23 37.1 C 103 H 18 131/70 98 Room Air 04/03/23 18:45 99 H (1) Abdominal pain Abdominal location: generalized Qualified Code(s): R10.84 - Generalized abdominal pain (2) Leukocytosis Leukocytosis type: unspecified Qualified Code(s): D72.829 - Elevated white blood cell count, unspecified
[2023-04-04 07:06] LABS: Basophils # (auto) 0.13 K/uL (0.00-0.20); Basophils % (auto) 0.8 %; Eosinophils # (auto) 0.33 K/uL (0.00-0.50); Immature Granulocytes # (auto) 1.39 K/uL (0.01-0.20); Immature Granulocytes % (auto) 8.4 %; Lymphocytes # (auto) 1.35 K/uL (1.20-3.40); Lymphocytes % (auto) 8.2 %; Monocytes % (auto) 8.5 %; Neutrophils # (auto) 11.89 K/uL (1.40-6.50); Neutrophils % (auto) 72.1 %
[2023-04-04] MEDS: ENOXAPARIN INJ 40 MG/0.4 ML SYR SQ SCH (07:44)
[2023-04-04] MEDS: POTASSIUM CHLORIDE / WTR 10 MEQ/100 ML PLCT IV SCH ×2 (10:12→11:14)
[2023-04-04] MEDS: PANTOprazole 40 MG in SYRINGE 0 ML IV SCH (10:13)
[2023-04-04] MEDS ORDERED: BUPIVACAINE/EPINEPHRINE 0.5% MPF 1:200,000 30 ML VIAL ONE (10:57)
[2023-04-04] MEDS ORDERED: LIDOCAINE 1%/EPINEPHRINE 1:100,000 20 ML VIAL ONE (10:57)
[2023-04-04] MEDS ORDERED: VANCOMYCIN HCL 1000MG/20ML VIAL ONE (10:58)
[2023-04-04] MEDS ORDERED: PREMARIN VAG CRM 14 APPLN/30 GM TUBE ONE (10:58)
[2023-04-04] MEDS ORDERED: VASOPRESSIN 20 UNIT/ML VIAL ONE (10:59)
--- NOTE | 2023-04-04 11:52 | Anesthesiology Consultation ---
Date of Service April 04, 2023 Assessment & Plan Chart Review Chart Review: Acceptable Risk for Surgery and Patient NOT seen in Pre Admission Testing Consults Requested none ASA ASA3 Proposed Anesthesia Anesthesia Type: General History Surgery Operation Date: 04/04/23 07:00 Proposed Procedures p Possible Exploratory Laparoscopy, Possible Laparotomy, Possible Bowel Resection, Possible Ostomy - Mikey Pearson DO s Bladder Sling Mesh Removal - Castro Sylvester, Height/Weight Height: 5 ft 6 in Weight: 88 kg Allergies Allergy/AdvReac Type Severity Reaction Status Date / Time codeine Allergy Mild "can't Verified 03/29/23 09:29 remember reaction" Medications Home Medications Medication Instructions Recorded Confirmed Last Taken multivitamin (Daily Multi-Vitamin 1 tab PO DAILY #30 tabs 12/11/18 04/02/23 03/28/23 08:00 tablet) needle (disp) 25 gauge 25 gauge x #100 ea 12/11/18 01/25/23 Unknown 5/8" (BD Regular Bevel [place]) bupropion HCl 150 mg 24 hr tablet, 150 mg PO BID 04/14/19 04/02/23 03/28/23 19:00 extended release melatonin 10 mg tablet 30 mg PO HS PRN Sleep 04/14/19 04/02/23 03/28/23 19:00 amitriptyline 50 mg tablet 50 mg PO HS 06/30/20 04/02/23 03/27/23 19:00 atorvastatin 10 mg tablet (Lipitor) 10 mg PO HS 06/30/20 04/02/23 03/28/23 19:00 ondansetron 4 mg disintegrating 4 mg PO Q6H PRN nausea and 06/30/20 04/02/23 Unknown tablet vomiting #12 tabs estradiol 0.075 mg/24 hr 1 patch transdermal 2XWK #24 ea 01/19/22 04/02/23 03/27/23 08:00 semiweekly transdermal patch doxepin 10 mg capsule 10 mg PO HS #90 caps 07/17/22 04/02/23 03/28/23 19:00 epinephrine 0.3 mg/0.3 mL 0.3 mg (0.3 mL) IM Q15M PRN 07/27/22 04/02/23 Unknown injection, auto-injector (EpiPen) anaphylaxis 3 doses #1 ea omalizumab 150 mg/mL subcutaneous See Rx Instructions .Route 11/10/22 04/02/23 03/08/23 08:30 syringe (Xolair) .COMPLEX ##2 omeprazole 20 mg capsule,delayed 20 mg PO QAM 03/16/23 04/02/23 03/28/23 08:00 release sumatriptan succinate 25 mg tablet 25 mg PO UD PRN migraine headache 03/16/23 04/02/23 Unknown (Imitrex) docusate sodium 100 mg capsule 100 mg PO BID PRN constipation #30 03/29/23 04/02/23 Unknown caps oxycodone-acetaminophen 7.5 mg-325 1 tab PO Q8H PRN pain #7 tabs 03/29/23 04/02/23 Unknown mg tablet (Percocet) phenazopyridine 200 mg tablet 200 mg PO Q8H PRN pain #10 tabs 03/29/23 04/02/23 Unknown (Pyridium) sulfamethoxazole 800 1 tab PO Q12H #10 tabs 03/29/23 04/02/23 Unknown mg-trimethoprim 160 mg tablet (Bactrim DS) tamsulosin 0.4 mg capsule 0.4 mg PO HS #30 caps 03/29/23 04/02/23 Unknown levocetirizine 5 mg tablet 5 mg PO DAILY 04/02/23 04/02/23 Unknown topiramate 50 mg tablet 50 mg PO DAILY 04/02/23 04/02/23 Unknown Active Medications Generic Name Dose Route Start Last Admin Trade Name Freq PRN Reason Stop Dose Admin Enoxaparin Sodium 40 mg 04/03/23 09:00 04/04/23 07:44 Enoxaparin Inj 40 Mg/0.4 Ml Syr SQ 05/03/23 08:59 40 mg QAM MARISOL Administration Metronidazole 500 mg in 100 mls @ 100 mls/hr 04/03/23 00:30 04/04/23 09:07 Flagyl IV 04/05/23 00:29 Infused Q8H MARISOL Infusion Protocol Cefepime HCl 1,000 mg/ Syringe 10 mls @ 5 mls/min 04/03/23 04:00 04/04/23 03:31 IV 04/13/23 03:59 5 mls/min Q12H MARISOL Administration Daptomycin 425 mg/ Syringe 8.5 mls @ 4.25 mls/min 04/03/23 19:00 04/03/23 20:22 IV 04/10/23 18:59 4.25 mls/min Q24H MARISOL Administration Protocol Potassium Chloride/Dextrose/Sod Cl 20 meq in 1,000 mls @ 100 mls/hr 04/03/23 08:15 04/04/23 03:31 D5nss + 20meq Kcl IV 05/03/23 08:14 100 mls/hr .Q10H MARISOL Administration Protocol Pantoprazole Sodium 40 mg/ 10 mls @ 5 mls/min 04/03/23 11:00 04/04/23 10:13 Syringe IV 05/03/23 10:59 5 mls/min DAILY@1100 MARISOL Administration Acetaminophen 1,000 mg in 100 mls @ 400 mls/hr 04/03/23 23:15 04/04/23 06:38 Ofirmev IV 04/06/23 23:14 Infused Q8 MARISOL Infusion Potassium Chloride 10 meq in 100 mls @ 100 mls/hr 04/04/23 10:00 04/04/23 11:14 K Omid / Wtr IV 04/04/23 11:59 100 mls/hr Q1H MARISOL Administration Morphine Sulfate 2 mg 04/03/23 08:18 04/03/23 20:22 Morphine Sulfate 2 Mg/Ml Carp IV 04/17/23 08:17 2 mg Q3H PRN Administration Pain 1-5 Morphine Sulfate 4 mg 04/03/23 23:07 04/04/23 10:13 Morphine Sulfate 4 Mg/Ml 1 Ml Carp\\Vial IV 04/17/23 23:06 4 mg Q3H PRN Administration Pain 6-10 Ondansetron HCl 4 mg 04/03/23 08:18 04/04/23 10:47 Ondansetron Inj 2 Mg/Ml 2 Ml Vial IV 05/03/23 08:17 4 mg Q4H PRN Administration Nausea Past Medical History Medical History Chronic idiopathic urticaria follows with Transition Advisor; sx controlled on Xolair Nausea and vomiting after administration of anesthetic agent GERD (gastroesophageal reflux disease) Postmenopausal HRT (hormone replacement therapy) Obesity Depression Angioedema follows with Transition Advisor; sx controlled on Xolair Migraines Recent ISAURA Anemia Exercise / Class Metabolic Activity II 4-5 Yardwork/Stairs/Walk up hill Past Family History Family History Father Pancreatic cancer Unknown Hypertension Mother Macular degeneration Denies family history of Ovarian cancer Breast cancer Colorectal cancer Past Surgical History Surgical History Hx of colonoscopy H/O basal cell carcinoma excision several History of bilateral breast reduction surgery History of exploratory laparotomy x 5, Colon resection, colostomy with take down and reanastamosis, removal of right ovary and aniceto History of tubal ligation History of hysteroscopy History of dilation and curettage History of knee surgery History of hysterectomy w/ removal of left ovary Past Anesthesia History No Hx of Anesthesia Complications and No Family Hx of Anesthesia Complications History of PONV No Hx of PONV and No Hx of Motion Sickness Social History Smoking Status: Former smoker Do You Dip or Chew Tobacco: No Hx Alcohol Use: Yes Alcohol type: wine alcohol intake frequency: holidays/special occasions only Hx Substance Use: No substance use type: does not use Physical Exam Vital Signs Last Vital Signs Temp 36.8 C 04/04/23 11:36 Pulse 99 H 04/04/23 11:36 Resp 18 04/04/23 11:36 BP 158/99 H 04/04/23 11:36 Pulse Ox 95 04/04/23 11:36 O2 Del Method Room Air 04/04/23 11:36 O2 Flow Rate 2 04/03/23 16:00 Testing Laboratory Results 04/04/23 05:53 04/04/23 05:53 PT 11.4 Seconds (9.0-12.0) 04/03/23 04:09 INR 1.0 (0.9-1.1) 04/03/23 04:09 Urine Color [place] 04/02/23 09:47 Urine Appearance Cloudy (Clear) A 04/02/23 09:47 Urine pH 5.0 (4.5-7.5) 04/02/23 09:47 Ur Specific [place] 1.022 (1.000-1.030) 04/02/23 09:47 Urine Protein 3+ (Negative) H 04/02/23 09:47 Urine Glucose (UA) Negative (Negative) 04/02/23 09:47 Urine Ketones Negative (Negative) 04/02/23 09:47 Urine Nitrite Positive (Negative) A 04/02/23 09:47 Ur Leukocyte Esterase 3+ (Negative) H 04/02/23 09:47 Urine WBC (Auto) >30 /hpf (0-5) H 04/02/23 09:47 Urine RBC (Auto) >30 /hpf (0-4) H 04/02/23 09:47 U Hyaline Cast (Auto) 1-5 /lpf (0-5) 04/02/23 09:47 U Epithel Cells (Auto) >30 /lpf (0-5) H 04/02/23 09:47 Urine Bacteria (Auto) 1+ (Negative) H 04/02/23 09:47 04/03/23 14:48 Gram Stain - Final Groin 04/02/23 09:47 Urine Culture - Final Urine,Clean Catch More than three types of organisms present, all high counts. Repeat collection recommended. No further identifications or sensitivities to follow. 04/02/23 11:42 Aerobic Blood Culture - Preliminary Blood No growth in Aerobic bottle after 24 hours. Anaerobic Blood Culture - Preliminary No growth in Anaerobic bottle after 24 hours. 04/02/23 11:47 Aerobic Blood Culture - Preliminary Blood No growth in Aerobic bottle after 24 hours. Anaerobic Blood Culture - Preliminary No growth in Anaerobic bottle after 24 hours. Electrocardiogram Date: 03/26/23 Findings: + NSR @ (@ 100) Chest X-Ray Date: 04/02/23 Findings: + atelectasis (bibasilar atelectasis), + cardiomegaly and + pulmonary vascular congestion (+)
[2023-04-04 11:56] LABS: HBSAG NON-REACTIVE (NON-REACTIVE); Hepatitis A Antibody IgM NON-REACTIVE (NON-REACTIVE); Hepatitis B Core Antibody IgM NON-REACTIVE (NON-REACTIVE)
--- NOTE | 2023-04-04 12:08 | Urology Progress Note ---
Date of Service April 04, 2023 Assessment & Plan (1) Abdominal pain: (2) ISAURA (acute kidney injury): (3) Leukocytosis: (4) UTI (urinary tract infection): Plan 57yo/F who is s/p mid urethral sling with Dr. Sylvester on 03/29/23 admitted with abdominal pain, ISAURA, and concern for infection. CT abdomen pelvis on arrival demonstrated moderate right pelvic inflammation and associated small fluid collection along the right lateral aspect of the bladder, small amount of fluid extending along the right pelvic sidewall, and gas along the medial base of the cecum. Findings may be postsurgical, however an underlying bowel injury could have this imaging appearance. Moderate small bowel dilatation without discrete transition point which favors an ileus. Repeat CT abd pelvis 04/03 shows extensive pelvic and lower abdominal inflammation, slightly increased since prior exam. Increase in multiple extraluminal locules of gas adjacent to the cecum. In addition, extraluminal gas extends into the right retroperitoneum as well as the anterior abdominal wall. These findings are highly suspicious for a bowel perforation and the cecum is the suspected source. A small bowel perforation could result in a similar imaging appearance. Increase in size of the right pelvic fluid collection, measuring 7.1 x 3.2 cm. No change in moderate small bowel dilatation without discrete transition point. This favors an ileus. A partial small bowel obstruction could appear similar. Interval development of trace interloop ascites. - Plan of care reviewed with Dr. Sylvester. - Afebrile, labs reviewed - WBC 16.49, Hemoglobin 11.5, Creatinine 0.95. - Urine culture with more than three types of organisms present, all high counts. - Blood cultures prelim no growth. - S/P bedside I&D R groin abscess 04/04. Wound culture pending. - On Cefepime, Flagyl, and Daptomycin for now to cover all possible sources. - Ojshi intact and draining clear yellow urine. - Surgery note reviewed -Patient is scheduled for a Exploratory laparoscopy, possible laparotomy, possible bowel resection, possible ostomy today with general surgery team. - Also discussed possible exploration/explantation of the bladder sling mesh material due to ongoing infectious issues. - Keep NPO - Continue supportive care and broad-spectrum antibiotics. - KUB ordered this morning. - Urology will follow See attending note for further details and plan- Attending note: Patient independently assessed, examined, interviewed, and evaluated. Agree with note as above. Patient's vitals and labs were all reviewed. Pertinent values in the HPI and plan section. Imaging was reviewed interpreted by myself. Agree with read. Vitals were reviewed. Reviewed options once again. Assess the wound in the right groin. No considerable leakage. No major purulent discharge. Packing still in place. Mild erythematous changes around the wound. Patient is still distended with ongoing issues related to ileus. Reviewed extensively options moving forward with the infection discussed removal of the sling material with primary closure vaginally. Discussed possible options related to the wound in the groin. Discussed possible washout. Discussed utilization of possible drain versus VAC versus other options. Discussed options moving forward. Discussed potential further intervention. Discussed findings within the abdomen. Reviewed extensively the patient's history especially related to her extremely complicated bowel and abdominal surgery history. Extensive conversation with both Dr. Pearson and Dr. Fine of General Surgery. Reviewed options. Discussed with patient extensively potential risks with abdominal surgery. Discussed possible need for exploration but also risk of potential further injury. Currently no free abdominal air. No fevers. Majority of abdominal signs appear to be due to ongoing issues with Ileus. General Surgery will plan to be available for intraoperative assistance if necessary moving forward with case to extract sling and washout wound. Discussed possible wound vac in groin. Discussed extensively with patient and family. Discussed issues related to fistula, incontinence, injury to bladder or urethra, as well as other risks. Multiple questions answered. Risks and benefits discussed at length for procedure. These include bleeding, infection, injury to surrounding tissues or organs, and risks associated with a nesthesia. Patient states understanding and agrees to proceed. Will sign consent and proceed. Plan for Explantation/Extraction of sling, Washout, Possible incision and drainage, possible cystoscopy. Admission and Anticipated Discharge Date Admission Date: April 02, 2023 Subjective Patient examined at bedside this AM. Awake, resting in bed on arrival. No acute distress. at bedside. Joshi intact, draining clear yellow urine. Denies fevers or chills. Some nausea. Still with abd discomfort today. S/P right groin I&D at bedside yesterday. Iodoform packing in place with gauze dressing. Minimal serosanguinous drainage. NGT attempted yesterday, but pt prefers to be placed under anesthesia. Has been NPO. Review of Systems Constitutional: as per Subjective / HPI Gastrointestinal: as per Subjective / HPI Genitourinary: as per Subjective / HPI Physical Exam Constitutional: no acute distress Respiratory: normal respiratory effort; no respiratory distress and no labored breathing Gastrointestinal (Abdomen): Abd mildly distended but soft and nonrigid. Generalized pain with palpation throughout abdomen. S/P Right groin I&D at bedside yesterday. Iodoform packing in place with gauze dressing covering. Minimal serosanguinous drainage noted. Neurologic: awake Psychiatric: A+Ox3, euthymic affect Genitourinary: Joshi intact, draining clear yellow Results & Data Vital Signs (Past 12 Hours) Vital Signs Temp Pulse Pulse Resp BP BP Pulse Ox 04/04/23 11:36 36.8 C 99 H 18 158/99 H 95 04/04/23 10:32 96 H 04/04/23 07:38 36.7 C 94 H 17 129/81 94 04/04/23 03:00 36.7 C 95 H 18 137/85 95 O2 Del Method 04/04/23 11:36 Room Air 04/04/23 10:32 04/04/23 07:38 Room Air 04/04/23 03:00 Room Air PG Care Time/CCT Total # of Minutes Spent Total Time Spent with Patient: Total time spent is greater than 50% in coordination of care (as documented) at patient's floor/unit and/or counseling patient: Coding Level of Care Code 03396 SUB INP/OBS CARE 2/35MIN Diagnoses Abdominal pain R10.84 Abdominal location: generalized ISAURA (acute kidney injury) N17.9 Leukocytosis D72.829 Leukocytosis type: unspecified UTI (urinary tract infection) N39.0 (1) Abdominal pain Abdominal location: generalized Qualified Code(s): R10.84 - Generalized abdominal pain (3) Leukocytosis Leukocytosis type: unspecified Qualified Code(s): D72.829 - Elevated white blood cell count, unspecified
[2023-04-04] MEDS ORDERED: SCOPOLAMINE 1 MG TDSY TD ONE (12:31)
[2023-04-04] MEDS ORDERED: ATROPINE SULFATE 0.1 MG/ML 10ML SYR IV PRN (12:39)
[2023-04-04] MEDS ORDERED: PROMETHAZINE HCL 12.5 MG in SODIUM CHLORIDE 0.9% 50 ML IV PRN (12:39)
[2023-04-04] MEDS ORDERED: NALOXONE HCL 0.4 MG/1 ML VIAL/CARP IV PRN (12:39)
[2023-04-04] MEDS ORDERED: FLUMAZENIL 0.1 MG/1 ML 10 ML VIAL IV PRN (12:39)
[2023-04-04] MEDS ORDERED: ONDANSETRON INJ 2 MG/ML 2 ML VIAL IV PRN (12:39)
[2023-04-04] MEDS ORDERED: ePHEDrine sulfate 50 MG/ML AMP IV PRN (12:39)
[2023-04-04] MEDS ORDERED: SCOPOLAMINE 1 MG TDSY TD SCH (12:45)
[2023-04-04] MEDS ORDERED: GENTAMICIN SULFATE 40 MG/ML 2 ML VIAL ONE (13:08)
[2023-04-04] MEDS ORDERED: fentaNYL citrate PF 100 MCG/2 ML VIAL ONE ×2 (13:11→14:42)
[2023-04-04] MEDS ORDERED: MIDAZOLAM HCL 1 MG/ML 2ML VIAL ONE (13:11)
[2023-04-04] MEDS ORDERED: ONDANSETRON INJ 2 MG/ML 2 ML VIAL ONE (13:12)
[2023-04-04] MEDS ORDERED: PROPOFOL IV EMULSION 10 MG/ML 20 ML VIAL IV ONE (13:12)
[2023-04-04] MEDS ORDERED: LIDOCAINE 2% 2 ML VIAL/AMP(20MG/ML) INFIL ONE (13:12)
[2023-04-04] MEDS ORDERED: DEXAMETHASONE SOD INJ 4 MG/ML VIAL ONE (13:12)
[2023-04-04] MEDS ORDERED: ROCURONIUM BROMIDE 10 MG/ML 5 ML VIAL IV ONE (13:12)
[2023-04-04] MEDS ORDERED: SUGAMMADEX SODIUM 200 MG/2 ML VIAL IV ONE (14:29)
--- NOTE | 2023-04-04 14:49 | Hospitalist Progress Note ---
Date of Service April 04, 2023 Assessment & Plan (1) Bowel obstruction: Plan: With perforation, suspected. Appreciate general surgery consultation and recommendations. She currently is n.p.o. on IV fluids and IV antibiotics. Attempted NG tube placement yesterday, April 03, failed. Surgery plans on taking patient to the operating room today, April 04. (2) Abdominal pain: Plan: Diffuse abdominal discomfort and pelvic discomfort after recent cystoscopy and placement of urethral sling. It appears she may also have abdominal ileus and bowel perforation. Attempted NG placement yesterday failed. General surgery and urology consultation and recommendations appreciated. She remains on intravenous Flagyl, cefepime, daptomycin, day 3. She is currently n.p.o. and on IV fluids. Creatinine has improved down to 0.9. (3) Leukocytosis: Plan: Due to acute infection. Continue IV antibiotic therapy. Serial labs (4) ISAURA (acute kidney injury): Plan: Resolved with IV fluids. Monitor intake and output. Serial labs. Creatinine now normal (5) Elevated LFTs: Plan: Minimal. No intervention needed at this time. Serial labs (6) Hypokalemia: Plan: IV supplementation. Serial labs Plan To be determined Admission and Anticipated Discharge Date Admission Date: April 02, 2023 Subjective The patient is alert and oriented. She was seen during the time she was being evaluated by general surgery. There is some concern for bowel obstruction. Apparently she will go to the operating room today, April 04. Potassium remains mildly low and parenteral replacement ordered. She remains on intravenous Flagyl, cefepime, daptomycin, day 3. Urine and blood cultures remain negative. She underwent incision and drainage of right groin abscess by urology. Cultures are pending. White blood cell count remains elevated at 16,000. Creatinine improved to 0.9 with IV fluids. Review of Systems 2 Review of Systems: Constitutional-no fever or chills ENT-no blurred vision, no double vision, no epistaxis, no sore throat Respiratory-no cough, no wheezing, no shortness of breath Cardiac-no palpitations, no chest pain, no syncope GI-no nausea, vomiting, diarrhea, melena, hematochezia -pelvic area discomfort after recent surgery. No hematuria. Packing in place after I&D of right inguinal abscess Musculoskeletal-pelvic area discomfort Skin-no bruising, no rashes, no pruritus Neuro-no isolated weakness, no paresthesia, no weakness Psych-no depression, no anxiety Physical Exam 2 Physical Exam: General-alert and oriented x3, no fevers, no chills HEENT-head atraumatic and normocephalic, pupils equal and reactive to light, extraocular muscles intact Neck-no lymphadenopathy or thyromegaly, trachea midline Chest-clear to auscultation percussion. No rales wheezing or rhonchi Cardiac-regular rate and rhythm, normal S1 and S2 Abdomen-distended. Diffuse mild tenderness. Hypoactive bowel sounds. No rebound or guarding no hepatosplenomegaly Extremities-no cyanosis, clubbing, or edema Neuro-cranial nerves II through XII intact, motor and sensory function within normal limits, strength symmetrical, no focal deficits Psych-normal affect, normal mood Results & Data Results & Data Vital Signs (Past 12 Hours) Vital Signs Temp Pulse Pulse Resp BP BP Pulse Ox 04/04/23 12:08 37.4 C 100 H 18 145/89 H 97 04/04/23 11:36 36.8 C 99 H 18 158/99 H 95 04/04/23 10:32 96 H 04/04/23 07:38 36.7 C 94 H 17 129/81 94 04/04/23 03:00 36.7 C 95 H 18 137/85 95 O2 Del Method 04/04/23 12:08 Room Air 04/04/23 11:36 Room Air 04/04/23 10:32 04/04/23 07:38 Room Air 04/04/23 03:00 Room Air Laboratory Results 04/04/23 05:53 04/04/23 05:53 PG Care Time/CCT Total # of Minutes Spent Total Time Spent with Patient: Total time spent is greater than 50% in coordination of care (as documented) at patient's floor/unit and/or counseling patient: Coding Level of Care Code 18605 SUB INP/OBS CARE 3/50MIN Diagnoses Bowel obstruction K56.609 Intestinal obstruction extent: unspecified extent Intestinal obstruction type: unspecified Abdominal pain R10.84 Abdominal location: generalized Leukocytosis D72.829 Leukocytosis type: unspecified ISAURA (acute kidney injury) N17.9 Elevated LFTs R79.89 Hypokalemia E87.6 (1) Bowel obstruction Intestinal obstruction extent: unspecified extent Intestinal obstruction type: unspecified Qualified Code(s): K56.609 - Unspecified intestinal obstruction, unspecified as to partial versus complete obstruction (2) Abdominal pain Abdominal location: generalized Qualified Code(s): R10.84 - Generalized abdominal pain (3) Leukocytosis Leukocytosis type: unspecified Qualified Code(s): D72.829 - Elevated white blood cell count, unspecified
--- NOTE | 2023-04-04 15:10 | Operative Report ---
PG Post Operative Report Pre & Post Diagnosis Operation Date: 04/04/23 07:00 Pre-Op Diagnosis: Groin infection, infected Sling Post-Op Diagnosis: Groin infection, infected Sling I identified the patient and participated in the time-out.: Yes Procedure Operation Date: 04/04/23 07:00 Actual Procedures p Extraction/Explantation of Bladder Sling, Incision and Drainage Vaginal, Incision and drainage right groin, Washout, Cystoscopy, Wound Vac Application - Castro Sylvester DO Surgeon Castro Sylvester, II, DO Configuration Specialist MASOOD Garcia Estimated Blood Loss 5 Findings Consistent with Post-Op Diagnosis Infected sling implant with right groin abscess and significant Ileus with possible bowel obstruction/injury Specimens Explanted midurethral sling Drains Wound Vac right groin Vaginal Packing Anesthesia Type MAC Complications none Disposition Disposition: Recovery Room Indications Patient with significant infection and concern due to possible bowel related issue. Severe bowel issue history with previous bowel injury, previous small bowel obstruction, and previous diversion. Risks and benefits discussed at length. Description of Procedure Patient was consented, brought to the OR, and placed in the dorsal lithotomy position under general anesthesia. She was prepped and draped in the standard sterile fashion and a time out was completed. Patient was prepped for the entire abdomen as well as groin and vaginal prep was done x2 with Betadine. With the time out completed, a 18 Fr Joshi catheter was placed. The vaginal cavity was irrigated with saline and vancomycin/gentamicin solution. After irrigation, the midurethral area of the vagina was assessed and lidocaine 1% solution was injected. Additionally 1% lidocaine was injected next to the groin wound in the right side. A 15 blade scalpel was used to make an incision approx 1 cm in length at the site of previous incision. The vaginal mucosa was dissected to free in the sling material was exposed. With manipulation the sling material was able to be freed taking care to avoid the periurethral tissue. The sling was grasped and gently extracted first on the right side. With extraction old dark blood clot material as well as some minor purulence was appreciated. The left arm of the sling was then able to be manipulated and grass further and able to be extracted without major issue. The sling appeared to be completely intact. There was material including fibrinous material and old blood clot material on the right sling arm. The sling material was sent in total to for pathologic analysis after complete extraction. Extensive irrigation was then completed using the vancomycin and gentamicin solution in the normal saline solution. The wound was explored and fully assessed. There appeared to be fibrinous material some blood clot material this was further irrigated free. The wound was probed no obvious irregularities. The tract coming from the side of the arm appeared to be clear of any necrotic material. It did appear to track right behind the pubic bone. No obvious herniation or wall abnormalities were noted. No additional areas of fluctuance or debris. No major bleeding was appreciated. Both the right and left side was copiously irrigated without major issue. After completion of irrigation the catheter was removed and a cystoscope was placed. The entire bladder was inspected. There was a mild area of irritation on the posterior wall likely from the Joshi there was no signs of perforation of the bladder any injuries or other areas of concern. The urethra appeared to be intact with no signs of any areas of concern injury or other abnormalities. At this point the bladder was then fully drained. A new 18 Haitian silicone catheter was placed and set to drainage. The vaginal mucosa was inspected. Some of the suture material from the previous surgery was able to be cut and removed. The vaginal opening was then closed using interrupted 3-0 and 2-0 Vicryl sutures. No major issues or concerns with closure. No other areas of fluctuance or other abnormalities was noted on vaginal exam. Attention was then taken to the right groin region. Gloves were exchanged and the previous incision and drainage of the right groin was assessed. An additional area was noted on the lateral edge. This was opened and an additional 0.5 cm. No purulent material was appreciated. The wound was fully probed. Some minor loculations were noted in the base of the wound but no sign ificant purulence or other issues. The vancomycin and gentamicin solution was used to irrigate and a Pulsavac device was then selected and 1 L of normal saline was used with the Pulsavac roll tube setter to clear the wound. The wound was then inspected. There appeared to be no areas of necrotic material. There was noted to be mild bleeding from the skin edges and from the wound itself. No significant necrotic tissue or other abnormalities were discovered. Upon further probing and assessment of the wound no additional areas of fluctuance necrotic material or other cavities noted. The wound was flushed a final time. Vaginally, vaginal packing was placed. The packing had been soaked in the gentamicin and vancomycin saline solution. This was placed and the Joshi catheter was set to a bedside bag and set to do full drainage. At this point it was decided to place a wound VAC into the right groin wound. The area was cleaned. The total dimensions of the right groin wound/After the irrigating and further opening was approximately 3.5 x 1.5 x 7.5 cm in size. The full material was placed into the wound cavity. The VAC device was placed using a an additional piece of foam over top of the device in order to avoid suctioning over the skin. The wound VAC was then initiated on suction. No signs of leaks or other issues. The patient was then further cleaned The drapes removed. All counts were correct x 2 prior to full closure. The patient was aroused from anesthesia and transferred to the pacu in stable condition having tolerated the procedure well without complications. A NG tube was placed by anesthesia for the procedure. This remained in place after extubation. We will order imaging in the PACU to confirm NG tube placement. We will plan to monitor postoperatively. I attest to the content of the Intraoperative Record and any orders documented therein. Any exceptions are noted below.
[2023-04-04] MEDS: fentaNYL citrate PF 100 MCG/2 ML VIAL IV PRN ×2 (15:23→15:28)
--- NOTE | 2023-04-04 15:30 | Surgery Progress Note ---
Date of Service April 04, 2023 Assessment & Plan (1) Abdominal pain: Plan: Patient is planned for procedure with urology today to explant the bladder sling mesh Surgery will be on standby for intra-abdominal intervention if needed. I have consented the patient for possible exploratory laparotomy possible bowel resection possible ostomy and possible fistula formation depending on urology's progression through their case. Otherwise we will plan to continue antibiotics for cecal inflammation and questionable perforation as this remains contained. The patient is suspected to have a hostile abdomen and the benefit of attempting to explore this area may n ot surpassed the risk. We will continue to monitor this for now. In addition to this concern she also has a small bowel obstruction. She would benefit from NG tube decompression which may help relieve some of her abdominal symptoms. An NG tube will be placed in the operating room. (2) Small bowel obstruction: Admission and Anticipated Discharge Date Admission Date: April 02, 2023 Subjective Patient states her right lower quadrant pain is actually improved. Continues to be without fevers and chills. Continues with nausea. NG tube was not inserted yesterday as expected. Still has not passed flatus Physical Exam Constitutional: cooperative; not in distress, not diaphoretic and not lethargic Respiratory: normal respiratory effort; no respiratory distress, no labored breathing and does not use accessory muscles Gastrointestinal (Abdomen): Decreased tenderness to palpation right lower quadrant. Status post I&D over mons pubis by urology. The area is draining serosanguineous fluid. Cellulitis remains. Results & Data Vital Signs (Past 12 Hours) Vital Signs Temp Pulse Pulse Pulse Resp BP BP 04/04/23 15:15 115 H 23 133/85 04/04/23 15:05 117 H 23 146/89 H 04/04/23 14:55 37.2 C 115 H 18 148/78 H 04/04/23 12:08 37.4 C 100 H 18 145/89 H 04/04/23 11:36 36.8 C 99 H 18 158/99 H 04/04/23 10:32 96 H 04/04/23 07:38 36.7 C 94 H 17 129/81 Pulse Ox O2 Del Method O2 Flow Rate 04/04/23 15:15 95 Oxymask 4 04/04/23 15:05 97 Oxymask 4 04/04/23 14:55 95 Oxymask 6 04/04/23 12:08 97 Room Air 04/04/23 11:36 95 Room Air 04/04/23 10:32 04/04/23 07:38 94 Room Air PG Care Time/CCT Total # of Minutes Spent Total Time Spent with Patient: Total time spent is greater than 50% in coordination of care (as documented) at patient's floor/unit and/or counseling patient: Coding Level of Care Code 00447 SUB INP/OBS CARE 2/35MIN Diagnoses Abdominal pain R10.84 Abdominal location: generalized Small bowel obstruction K56.609 (1) Abdominal pain Abdominal location: generalized Qualified Code(s): R10.84 - Generalized abdominal pain
--- NOTE | 2023-04-04 15:42 | XRay Report ---
XR chest 1V portable HISTORY: 57 years-old Female pacu for ng tube placement status post placement of an enteric tube COMPARISON: Chest radiograph 04/02/2023 TECHNIQUE: AP view of the chest FINDINGS: Cardiac silhouette is enlarged. Chronic right hemidiaphragmatic elevation. Bibasilar densities are ag ain noted favoring atelectasis. Bones appear grossly intact. Status post placement of an enteric tube with distal tip and side-port projecting over the gastric body. IMPRESSION: Status post placement of an enteric tube with distal tip projecting over the gastric body . ACT 112: Negative or not required by law. The above report was generated using voice recognition software. It may contain grammatical, syntax o r spelling errors. Electronically signed by: Jeronimo Durham M.D. 04/04/2023 3:40 PM
--- NOTE | 2023-04-04 15:49 | Anesthesiology Progress Note ---
Date of Service April 04, 2023 Anesthesia Post Procedure Vital Signs Vital Signs: Temp Pulse Pulse Pulse Resp BP BP 04/04/23 15:45 37.3 C 115 H 22 141/88 H 04/04/23 15:35 110 H 21 150/88 H 04/04/23 15:25 113 H 24 151/88 H 04/04/23 15:15 115 H 23 133/85 04/04/23 15:05 117 H 23 146/89 H 04/04/23 14:55 37.2 C 115 H 18 148/78 H 04/04/23 12:08 37.4 C 100 H 18 145/89 H 04/04/23 11:36 36.8 C 99 H 18 158/99 H 04/04/23 10:32 96 H 04/04/23 07:38 36.7 C 94 H 17 129/81 04/04/23 03:00 36.7 C 95 H 18 137/85 04/03/23 23:00 102 H 04/03/23 22:45 37 C 102 H 18 136/84 04/03/23 19:23 37.1 C 103 H 18 131/70 04/03/23 18:45 99 H 04/03/23 16:00 37 C 108 H 20 151/84 H 04/03/23 16:00 Pulse Ox Pulse Ox O2 Del Method O2 Del Method O2 Flow Rate O2 Flow Rate 04/04/23 15:45 94 Oxymask 3 04/04/23 15:35 95 Oxymask 4 04/04/23 15:25 96 Oxymask 4 04/04/23 15:15 95 Oxymask 4 04/04/23 15:05 97 Oxymask 4 04/04/23 14:55 95 Oxymask 6 04/04/23 12:08 97 Room Air 04/04/23 11:36 95 Room Air 04/04/23 10:32 04/04/23 07:38 94 Room Air 04/04/23 03:00 95 Room Air 04/03/23 23:00 04/03/23 22:45 94 Room Air 04/03/23 19:23 98 Room Air 04/03/23 18:45 04/03/23 16:00 94 Nasal Cannula 2 04/03/23 16:00 95 Nasal Cannula 2 Pain Intensity Bilateral Abdomen: Pain Intensity: 4 Transfer of Care Handoff Completed per policy Notes Mental Status: alert / awake / arousable Patient Amnestic to Procedure: Yes Nausea / Vomiting: adequately controlled Pain: adequately controlled Airway Patency, RR, SpO2: stable & adequate BP & HR: stable & adequate Hydration State: stable & adequate Anesthetic Complications: no major complications apparent
[2023-04-04] MEDS: CHECK SCOPOLAMINE PATCH PLACEMENT SCH ×2 (16:42→21:25)
[2023-04-04] MEDS: CEFEPIME 2,000 MG in SYRINGE 0 ML IV SCH (17:25)
[2023-04-04] MEDS: DAPTOmycin 425 MG in SYRINGE 0 ML IV SCH (17:55)
[2023-04-04] MEDS: MoRPHine SULFATE 2 MG/ML CARP IV PRN (18:00)
[2023-04-05] MEDS: CEFEPIME 2,000 MG in SYRINGE 0 ML IV SCH ×2 (02:55→14:41)
[2023-04-05] MEDS: D5NSS + 20MEQ KCL 20 MEQ/1,000 ML BAG IV SCH ×3 (02:56→19:41)
[2023-04-05] MEDS: MoRPHine SULFATE 4 MG/ML 1 ML CARP\\VIAL IV PRN ×5 (03:00→23:46)
[2023-04-05] MEDS: ONDANSETRON INJ 2 MG/ML 2 ML VIAL IV PRN ×4 (03:00→23:46)
[2023-04-05 05:50] LABS: Hemoglobin 10.3 g/dl (12.0-16.0); Mean Corpuscular Hgb Conc 34.3 g/dL (32.0-36.0); Mean Corpuscular Volume 87.5 fL (80.0-100.0); Platelet Count 395 K/uL (130-400); RDW Coefficient of Variation 14.4 % (11.5-14.5); RDW Standard Deviation 46.2 fL (36.4-46.3); Red Blood Count 3.43 M/uL (4.20-5.40); White Blood Count 16.91 K/ul (4.8-10.8)
[2023-04-05 06:03] LABS: BUN Creatinine Ratio 19.1 (10-20); Calcium 8.4 mg/dl (8.6-10.3); Creatinine Clr Calc Pharmacy 77.9 ml/min; Est GFR (African American) 83.4 ml/min; Est GFR (Non-African American) 71.9 ml/min; Potassium 3.9 mmol/L (3.5-5.1)
[2023-04-05] MEDS: ACETAMINOPHEN 1,000 MG/100 ML VIAL IV SCH ×3 (06:25→21:44)
[2023-04-05 06:59] LABS: ALC (manual) 1.86 K/uL (1.2-3.4); ANC (manual) 13.36 K/uL (1.4-6.5); Lymphocytes # (manual) 1.86 K/uL (1.2-3.4); Lymphocytes % (manual) 11 %; Metamyelocytes # (manual) 1.01 K/uL (0-0); Metamyelocytes % (manual) 6 %; Monocytes # (manual) 0.34 K/uL (0.11-0.59); Monocytes % (manual) 2 %; Myelocytes # (manual) 0.34 K/uL (0-0); Myelocytes % (manual) 2 %; Neutrophils # (manual) 13.36 K/uL (1.40-6.50); Neutrophils % (manual) 79 %
[2023-04-05] MEDS: CHECK SCOPOLAMINE PATCH PLACEMENT SCH ×3 (09:46→23:47)
[2023-04-05] MEDS: ENOXAPARIN INJ 40 MG/0.4 ML SYR SQ SCH (09:47)
[2023-04-05] MEDS: PANTOprazole 40 MG in SYRINGE 0 ML IV SCH (09:47)
--- NOTE | 2023-04-05 14:42 | Surgery Progress Note ---
Date of Service April 05, 2023 Assessment & Plan (1) Small bowel obstruction: Plan: Pt in bed NG tube in place 450/525 ml in 12/24hr, Feeling mildly less bloated than yesterday Still having abdominal discomfort, TTP, mildly firm abdomen denies fever, chills, CP Wound Vac supra pubic area right side, last red, minimal tender, is improved compared to preop Patient tearful, requesting Wellbutrin, ordered - nursing may temporary clamp NG tube to administer Pt reports she takes Valerian root and melatonin at HS to help with sleep - reached out to hospitalist covering WBC 16.9 VSS. Continue antibiotics Continue conservative treatment for SBO/ possible perforation IV antibiotics IV fluids NG tube Will continue to monitor Admission and Anticipated Discharge Date Admission Date: April 02, 2023 Supervising Physician Co-Signing Physician Notes I seen this patient this a.m. and examined her. I agree with the above. Subjective Pt in bed NG tube in place, Feeling mildly less bloated than yesterday Still having abdominal discomfort denies fever, chills Review of Systems Constitutional: no fever and no chills Respiratory: no dyspnea Cardiovascular: no chest pain Gastrointestinal: + abdominal pain and + bloating; no naus ea and no vomiting Genitourinary: has spence cath, vaginal packing removed today Musculoskeletal: no problem reported Psychiatric: + anxiety Physical Exam Physical Exam: alert oriented , tearful Constitutional: cooperative; no acute distress Eyes: wears corrective lens Respiratory: normal respiratory effort and able to speak in complete sentences; no respiratory distress Cardiovascular: Rate/Rhythm: regular rate Gastrointestinal (Abdomen): Percussion/Palpation: + abdomen tender (Less tender right lower quadrant) Wound VAC in place over the mons pubis. Musculoskeletal: no cyanosis or clubbing, extremities motor strength 5/5 Psychiatric: Orientation: oriented x 3 Mood: + anxious mood Thought Process: clear/coherent thought process Genitourinary: spence catheter Results & Data Vital Signs (Past 12 Hours) Vital Signs Temp Pulse Pulse Resp BP Pulse Ox O2 Del Method 04/05/23 12:43 97.5 F L 84 18 126/82 96 Room Air 04/05/23 08:12 98.1 F 78 18 124/73 95 Room Air 04/05/23 03:49 104 H 04/05/23 03:42 97.9 F 82 20 126/77 92 Room Air PG Care Time/CCT Total # of Minutes Spent Total Time Spent with Patient: Total time spent is greater than 50% in coordination of care (as documented) at patient's floor/unit and/or counseling patient: Coding Level of Care Code 61480 SUB INP/OBS CARE 2/35MIN Diagnoses Small bowel obstruction K56.609
--- NOTE | 2023-04-05 16:54 | Hospitalist Progress Note ---
Date of Service April 05, 2023 Assessment & Plan (1) Bowel obstruction: Plan: With perforation, suspected. Appreciate general surgery consultation and recommendations. She currently is n.p.o. on IV fluids and IV antibiotics. She now has an NG tube in place. She is postoperative day #1 after bladder sling removal. She has a wound VAC in place in the right suprapubic area. (2) Abdominal pain: Plan: Diffuse abdominal discomfort and pelvic discomfort after recent cystoscopy and placement of urethral sling. Suspected bowel obstruction. NG tube is now in place. General surgery and urology consultation recommendations appreciated. She is now on cefepime and daptomycin. She is currently n.p.o. and on IV fluids. (3) Leukocytosis: Plan: Due to acute infection. Continue IV antibiotic therapy. Serial labs (4) ISAURA (acute kidney injury): Plan: Resolved with IV fluids. Monitor intake and output. Serial labs. Creatinine now normal (5) Elevated LFTs: Plan: Minimal. No intervention needed at this time. Serial labs (6) Hypokalemia: Plan: IV supplementation. Serial labs Plan To be determined Admission and Anticipated Discharge Date Admission Date: April 02, 2023 Subjective Alert and oriented. NG tube is now in place. Surgery entry noted. She has anxiety symptoms. As needed IV Ativan ordered. Continue IV fluids for now and n.p.o. status. She remains on cefepime and daptomycin. Postoperative day #1 after bladder sling removal. Right suprapubic wound VAC is in place Review of Systems 2 Review of Systems: Constitutional-no fever or chills ENT-no blurred vision, no double vision, no epistaxis, no sore throat Respiratory-no cough, no wheezing, no shortness of breath Cardiac-no palpitations, no chest pain, no syncope GI-no nausea, vomiting, diarrhea, melena, hematochezia -pelvic area discomfort after recent surgery. No hematuria. Packing in place after I&D of right inguinal abscess Musculoskeletal-pelvic area discomfort Skin-no bruising, no rashes, no pruritus Neuro-no isolated weakness, no paresthesia, no weakness Psych-no depression, no anxiety Physical Exam 2 Physical Exam: General-alert and oriented x3, no fevers, no chills HEENT-head atraumatic and normocephalic, pupils equal and reactive to light, extraocular muscles intact. NG tube in place Neck-no lymphadenopathy or thyromegaly, trachea midline Chest-clear to auscultation percussion. No rales wheezing or rhonchi Cardiac-regular rate and rhythm, normal S1 and S2 Abdomen-distended. Right suprapubic wound VAC in place. Hypoactive bowel sounds. No rebound or guarding. No hepatosplenomegaly Extremities-no cyanosis, clubbing, or edema Neuro-cranial nerves II through XII intact, motor and sensory function within normal limits, strength symmetrical, no focal deficits Psych-normal affect, normal mood Results & Data Results & Data Vital Signs (Past 12 Hours) Vital Signs Temp Pulse Resp BP Pulse Ox O2 Del Method 04/05/23 12:43 36.4 C L 84 18 126/82 96 Room Air 04/05/23 08:12 36.7 C 78 18 124/73 95 Room Air Laboratory Results 04/05/23 05:18 04/05/23 05:18 PG Care Time/CCT Total # of Minutes Spent Total Time Spent with Patient: Total time spent is greater than 50% in coordination of care (as documented) at patient's floor/unit and/or counseling patient: Coding Level of Care Code 73189 SUB INP/OBS CARE 3/50MIN Diagnoses Bowel obstruction K56.609 Intestinal obstruction extent: unspecified extent Intestinal obstruction type: unspecified Abdominal pain R10.84 Abdominal location: generalized Leukocytosis D72.829 Leukocytosis type: unspecified ISAURA (acute kidney injury) N17.9 Elevated LFTs R79.89 Hypokalemia E87.6 (1) Bowel obstruction Intestinal obstruction extent: unspecified extent Intestinal obstruction type: unspecified Qualified Code(s): K56.609 - Unspecified intestinal obstruction, unspecified as to partial versus complete obstruction (2) Abdominal pain Abdominal location: generalized Qualified Code(s): R10.84 - Generalized abdominal pain (3) Leukocytosis Leukocytosis type: unspecified Qualified Code(s): D72.829 - Elevated white blood cell count, unspecified
--- NOTE | 2023-04-05 17:53 | Urology Progress Note ---
Date of Service April 05, 2023 Assessment & Plan (1) Wound infection: (2) Leukocytosis: (3) Abdominal pain: (4) UTI (urinary tract infection): Plan 57yo/F who is s/p mid urethral sling with Dr. Sylvester on 03/29/23 admitted with abdominal pain, ISAURA, ileus and infection. - POD #1 s/p Extraction/Explantation of Bladder Sling, Incision and Drainage Vaginal, Incision and drainage right groin, Washout, Cystoscopy, Wound Vac Application with Dr. Sylvester. - Afebrile, normotensive, tachycardic. - Labs reviewedWBC 16.91, hemoglobin 10.3, creatinine 0.89. - Urine and blood cultures 04/02 negative. Right groin culture grew yeast. - Continues on cefepime and daptomycin. - Joshi catheter intact, draining clear yellow urine. - Vaginal packing removed today without difficulty. Pt tolerated well. - Wound VAC in place to right groin. WCN following, appreciate assistance. - Continue supportive care and antibiotics. - Urology to follow. Plan of care reviewed with Dr. Sylvester. Admission and Anticipated Discharge Date Admission Date: April 02, 2023 Subjective Patient examined at bedside this AM. Awake, resting in bed on arrival. No acute distress. at bedside. Joshi intact, draining clear yellow urine. Wound VAC in place to right groin. NG tube in place. Still having some abdominal discomfort, but feels less bloated. Denies fevers or chills Review of Systems Constitutional: as per Subjective / HPI Gastrointestinal: as per Subjective / HPI Genitourinary: as per Subjective / HPI Physical Exam Physical Exam: alert oriented , tearful Constitutional: cooperative; no acute distress Respiratory: no respiratory distress and no labored breathing Cardiovascular: Rate/Rhythm: regular rate Gastrointestinal (Abdomen): Percussion/Palpation: + abdomen tender Wound VAC in place to right groin. Miild erythema and tenderness around wound vac site. Psychiatric: Orientation: alert, oriented x 3 and cooperative Affect: + tearful affect Mood: + anxious mood Genitourinary: Joshi catheter, draining clear yellow urine Vaginal packing removed at bedside without difficulty. Patient tolerated well. Results & Data Vital Signs (Past 12 Hours) Vital Signs Temp Pulse Pulse Resp BP Pulse Ox O2 Del Method 04/05/23 12:43 36.4 C L 84 18 126/82 96 Room Air 04/05/23 08:12 36.7 C 78 18 124/73 95 Room Air 04/05/23 03:49 104 H 04/05/23 03:42 36.6 C 82 20 126/77 92 Room Air PG Care Time/CCT Total # of Minutes Spent Total Time Spent with Patient: Total time spent is greater than 50% in coordination of care (as documented) at patient's floor/unit and/or counseling patient: Coding Level of Care Code 43999 SUB INP/OBS CARE 2/35MIN Diagnoses Wound infection T14.8XXA; L08.9 Leukocytosis D72.829 Leukocytosis type: unspecified Abdominal pain R10.84 Abdominal location: generalized UTI (urinary tract infection) N39.0 (2) Leukocytosis Leukocytosis type: unspecified Qualified Code(s): D72.829 - Elevated white blood cell count, unspecified (3) Abdominal pain Abdominal location: generalized Qualified Code(s): R10.84 - Generalized abdominal pain
[2023-04-05] MEDS: DAPTOmycin 425 MG in SYRINGE 0 ML IV SCH (17:58)
[2023-04-05] MEDS: buPROPion HCl 75 MG TABLET PO SCH (19:42)
[2023-04-05] MEDS: LORazepam 0.5 MG in SYRINGE 0.25 ML IV PRN (21:44)
[2023-04-06] MEDS: LORazepam 0.5 MG in SYRINGE 0.25 ML IV PRN (04:49)
[2023-04-06] MEDS: MoRPHine SULFATE 4 MG/ML 1 ML CARP\\VIAL IV PRN ×2 (04:49→12:12)
[2023-04-06] MEDS: CEFEPIME 2,000 MG in SYRINGE 0 ML IV SCH (04:49)
[2023-04-06] MEDS: D5NSS + 20MEQ KCL 20 MEQ/1,000 ML BAG IV SCH ×2 (04:50→15:42)
[2023-04-06] MEDS: ONDANSETRON INJ 2 MG/ML 2 ML VIAL IV PRN (04:50)
[2023-04-06] MEDS: ACETAMINOPHEN 1,000 MG/100 ML VIAL IV SCH ×3 (04:50→21:12)
[2023-04-06 06:43] LABS: Hematocrit (blood only) 29.5 % (37.0-47.0); Hemoglobin 9.8 g/dl (12.0-16.0); Mean Corpuscular Hemoglobin 29.5 pg (25.0-34.0); Mean Corpuscular Hgb Conc 33.2 g/dL (32.0-36.0); Mean Corpuscular Volume 88.9 fL (80.0-100.0); Mean Platelet Volume 9.1 fL (9.4-12.4); Nucleated RBC # (auto) 0.04 K/uL (0.00-0.12); Nucleated RBC % (auto) 0.2 %; Platelet Count 452 K/uL (130-400); RDW Coefficient of Variation 14.7 % (11.5-14.5); RDW Standard Deviation 47.3 fL (36.4-46.3); Red Blood Count 3.32 M/uL (4.20-5.40); White Blood Count 25.72 K/ul (4.8-10.8)
[2023-04-06 06:50] LABS: Calcium 8.1 mg/dl (8.6-10.3); Creatinine Clr Calc Pharmacy 85.8 ml/min; Est GFR (African American) 93.4 ml/min; Est GFR (Non-African American) 80.6 ml/min; Potassium 3.6 mmol/L (3.5-5.1)
[2023-04-06 07:19] LABS: Basophils # (auto) 0.11 K/uL (0.00-0.20); Basophils % (auto) 0.4 %; Eosinophils # (auto) 0.06 K/uL (0.00-0.50); Eosinophils % (auto) 0.2 %; Immature Granulocytes # (auto) 1.74 K/uL (0.01-0.20); Immature Granulocytes % (auto) 6.8 %; Lymphocytes # (auto) 2.17 K/uL (1.20-3.40); Lymphocytes % (auto) 8.4 %; Monocytes # (auto) 1.19 K/uL (0.11-0.59); Monocytes % (auto) 4.6 %; Neutrophils # (auto) 20.45 K/uL (1.40-6.50); Neutrophils % (auto) 79.6 %; Polychromasia 1+
[2023-04-06] MEDS: CHECK SCOPOLAMINE PATCH PLACEMENT SCH ×2 (08:21→15:43)
[2023-04-06] MEDS: ENOXAPARIN INJ 40 MG/0.4 ML SYR SQ SCH (08:22)
[2023-04-06] MEDS: buPROPion HCl 75 MG TABLET PO SCH ×2 (08:22→21:10)
--- NOTE | 2023-04-06 09:46 | Surgery Progress Note ---
Date of Service April 06, 2023 Assessment & Plan (1) Small bowel obstruction: Plan: Pt in bed NG tube in place 500cc Feeling mildly less bloated than yesterday feeling abdominal pressure with palpation denies fever, chills, CP Wound Vac supra pubic area right side, redness surround and extending down to right upper thigh area WBC 25 (16.9) Cultures growing C. Albicans hospitalist ordering Voriconazole VSS. Continue conservative treatment for SBO/ possible perforation IV antibiotics IV fluids NG tube Patient may need PPN/TPN has been NPO since Sunday [facility] surgery is covering the weekend Admission and Anticipated Discharge Date Admission Date: April 02, 2023 Supervising Physician Co-Signing Physician Notes I have seen and examined this patient. This case has been discussed with urology and medicine. The decision is made for transfer to a tertiary care center as there is feces coming through the urologic suprapubic wound. In addition, there is extending erythema and edema with tenderness noted extending laterally on the upper thigh as her WBC has increased substantially. Concerns for the integrity of the fistulous tract at this time and the patient has a complex past surgical history, very well known to her surgeons at [facility]. The patient has remained HD stable, without fevers or chills and actually has no abdominal pain since removal of the mesh and resolving SBO. NGT is clamped at this time. Patient tolerating NGT clamp, passing flatus. Plan to progress to clears if residuals are acceptable and patient remains without obstructive symptoms. May then advance diet as tolerated. Patient has been accepted to [facility]. Subjective Patient in bed with at side Reports no abdominal pain at present Feeling better than yesterday, less bloating passing flatus Review of Systems Constitutional: no fever and no chills Ear, Nose, Mouth, Throat: no hearing loss Respiratory: no dyspnea Cardiovascular: no chest pain Gastrointestinal: + bloating (less than yesterday ); no ab dominal pain (only pressure in RUQ), no nausea and no vomiting Genitourinary: has spence cath Musculoskeletal: no problem reported Integumentary: + wounds Physical Exam Physical Exam: alert oriented Constitutional: cooperative; no acute distress Respiratory: normal respiratory effort and able to speak in complete sentences; no respiratory distress Gastrointestinal (Abdomen): Inspection/Auscultation: + abdominal surgical drain present (Right pubic area ) Percussion/Palpation: + abdomen firm (Less firm and distended than yesterday ); abdomen nontender and no guarding Musculoskeletal: no cyanosis or clubbing, extremities motor strength 5/5 Psychiatric: Orientation: oriented x 3 Mood: + anxious mood Thought Process: clear/coherent thought process Genitourinary: spence cath Results & Data Vital Signs (Past 12 Hours) Vital Signs Temp Pulse Pulse Resp BP Pulse Ox O2 Del Method 04/06/23 07:19 98.4 F 1 L 18 128/71 93 Room Air 04/06/23 05:50 105 H 04/06/23 04:10 97.9 F 102 H 20 137/76 95 Room Air 04/05/23 23:59 120 H 04/05/23 23:55 100.0 F H 115 H 20 124/72 92 Room Air PG Care Time/CCT Total # of Minutes Spent Total Time Spent with Patient: Total time spent is greater than 50% in coordination of care (as documented) at patient's floor/unit and/or counseling patient: Coding Level of Care Code 75959 SUB INP/OBS CARE 2/35MIN Diagnoses Small bowel obstruction K56.609
[2023-04-06] MEDS ORDERED: SODIUM CHLORIDE 0.9% IV ONE (11:02)
[2023-04-06] MEDS ORDERED: VORICONAZOLE IV ONE (11:02)
[2023-04-06] MEDS: PANTOprazole 40 MG in SYRINGE 0 ML IV SCH (11:03)
--- NOTE | 2023-04-06 11:58 | Infectious Disease Consult ---
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 She started having progressive suprapubic pain since 03/31 associated with chills, poor po intake , nausea , increased urine frequency. She has been taking Bactrim since her procedure. On admission , she is tachycardic. Labs noted for WBC 19.24, PLTS 426, cr 2.42, AST 68, ALT 69. UA pyuria, bacteriuria but > 30 epi cells. Ctab without contrast on 04/02 showed right pelvic inflammation with small fluid collection along the right lateral aspect of the bladder, measuring 7 x 2.6 cm, with mild mass effect upon the bladder; Small amount of fluid extending along the right pelvic sidewall. In addition, gas along the medial base of the cecum which may be extraluminal. Although findings may be postsurgical, an underlying bowel injury is possible. It also showed findings c/f , ileus or partial small bowel obstruction. She was started on cefepime, flagyl and daptomycin. A repeat CTAB with contrast done on 04/03 showed that the inflammation slightly increased with extension of extraluminal gas into the right retroperitoneum as well as the anterior abdominal wall suspicious for a bowel perforation and the cecum is the suspected source. A small bowel perforation could appear simila. The right pelvic fluid collection, increased measuring 7.1 x 3.2 cm. She was followed by both gen surgery and urology. Surgery recommended NGT decompression . She was scheduled for explant of bladder sling mesh with surgery on standby for exlap for possible bowel resection with possible ostomy and possible fistula formation if needed. Additionally she was noted to have a right groin wound/abscess on exam which was cultured by urology on 04/03. On 04/04 she underwent explanation of bladder Sling, Incision and Drainage right groin and vagina with washout, Cystoscopy and Wound Vac Application. Findings noted for infected sling implant with right groin abscess and significant ileus with possible small bowel obstr uction/injury. No intraop cx obtained. She did not undergo surgery of bowel. Surgery recommended continued antibiotics for cecal inflammation as they felt the perforation remained contained. The right groin wound cultured prior to the procedure on 04/03 grew lashell albicans/dubliniensis. BC remains sterile to date. ID was consulted for bladder sling infection. I examined the patient with wound care nurse after wound vac removed. Félix stool noted at right groin wound site. She complains of abdominal pain . Her WBc increased to 25 k from 16.9 yesterday Micro BC 04/02 NGTd UC 04/02 > 3 orgs R groin wound 04/03GRAM STAIN rare yeast, GPC, GPB CX LASHELL Albicans/Dub ( no sensi) Abx Ceftriaxone 04/02 Cefepime 04/02-ongoing Daptomycin 04/02-ongoing Metronidazole 04/02-ongoing #Bladder sling infection s/p explanation 04/04, no OR cx # Félix stool from R groin wound- examined with wound care nurse #Worsening Leukocytosis # SBO #probable bowel perforation #Right groin cx. 04/03 prior to OR + lashell alb I evaluated patient during wound care nurse evaluation. Fecal matter noted from wound- -Discontinued Cefepime, flagyl and Daptomycin -Started zosyn for continued GI juan coverage -Added a fluconazole 400 mg po daily . -Surgery and Urology reevaluation is pending re- stool from R groin wound and need for source control - Follow up Thank you for this consultation. ID will continue to follow. Leif Cole MD, MPH Infectious Disease [facility] Call [phone] with questions. Consultation Information Consultation was provided via telemedicine using two-way real-time interactive telecommunication between the patient and the telemedicine provider. For the duration of the visit, the provider was performing the assessment from a different facility than the patient. This includesuse of bluetooth stethoscope forauscultationperformed by the telepresenter that the telemedicine provider can hear if described in the physical exam. Collection Systems Consultant contact information: Please call [facility] Call Center . (Phone Number For Physician Use Only) After establishing a telemedicine visit, patient was: Patient was verified with two unique identifiers Time Spent with Patient: Initial => 75 min History of Present Illness Reason for Consultation: Bladder sling infection Requesting Physician: Bk Tejeda MD Attending Physician: Bk Tejeda MD History of Present Illness 57 yo f with pmh of complicated bowel perforation 10 years ago, recurrent SBO, photodermatitis/Urticaria (On Xolair), Urinary Urgency, Stress Incontinence s/p urethral sling on 03/29/23 presents with worsening post operative pain. She started having progressive suprapubic pain since 03/31 associated with chills, poor po intake , nausea , increased urine frequency. She has been taking Bactrim since her procedure. On admission , she is tachycardic. Labs noted for WBC 19.24, PLTS 426, cr 2.42, AST 68, ALT 69. UA pyuria, bacteriuria but > 30 epi cells. Ctab without contrast on 04/02 showed right pelvic inflammation with small fluid collection along the right lateral aspect of the bladder, measuring 7 x 2.6 cm, with mild mass effect upon the bladder; Small amount of fluid extending along the right pelvic sidewall. In addition, gas along the medial base of the cecum which may be extraluminal. Although findings may be postsurgical, an underlying bowel injury is possible. It also showed findings c/f , ileus or partial small bowel obstruction. She was started on cefepime, flagyl and daptomycin. A repeat CTAB with contrast done on 04/03 showed that the inflammation slightly increased with extension of extraluminal gas into the right retroperitoneum as well as the anterior abdominal wall suspicious for a bowel perforation and the cecum is the suspected source. A small bowel perforation could appear simila. The right pelvic fluid collection, increased measuring 7.1 x 3.2 cm. She was followed by both gen surgery and urology. Surgery recommended NGT decompression . She was scheduled for explant of bladder sling mesh with surgery on standby for exlap for possible bowel resection with possible ostomy and possible fistula formation if needed. Additionally she was noted to have a right groin wound/abscess on exam which was cultured by urology on 04/03. On 04/04 she underwent explanation of bladder Sling, Incision and Drainage right groin and vagina with washout, Cystoscopy and Wound Vac Application. Findings noted for infected sling implant with right groin abscess and significant ileus with possible small bowel obst ruction/injury. No intraop cx obtained. She did not undergo surgery of bowel. Surgery recommended continued antibiotics for cecal inflammation as they felt the perforation remained contained. The right groin wound cultured prior to the procedure on 04/03 grew lashell albicans/dubliniensis. BC remains sterile to date. ID was consulted for bladder sling infection. I examined the patient with wound care nurse after wound vac removed. Félix stool noted at right groin wound site. She complains of abdominal pain . Her WBc increased to 25 k from 16.9 yesterday Allergies Allergy/AdvReac Type Severity Reaction Status Date / Time codeine Allergy Mild "can't Verified 03/29/23 09:29 remember reaction" Home Medications Medication Instructions Recorded Confirmed Type enoxaparin 40 mg/0.4 mL 40 mg (0.4 mL) subcut QAM #0 mL 04/06/23 Rx subcutaneous syringe (Lovenox) morphine 2 mg/mL intravenous 2 mg IV Q3H PRN #0 mL 04/06/23 Rx syringe ondansetron HCl (PF) 4 mg/2 mL 4 mg (2 mL) IV Q4H PRN #0 mL 04/06/23 Rx injection solution Patient History Medical History Chronic idiopathic urticaria follows with [employer]; sx controlled on Xolair Nausea and vomiting after administration of anesthetic agent GERD (gastroesophageal reflux disease) Postmenopausal HRT (hormone replacement therapy) Obesity Depression Angioedema follows with [employer]; sx controlled on Xolair Migraines Surgical History Hx of colonoscopy H/O basal cell carcinoma excision several History of bilateral breast reduction surgery History of exploratory laparotomy x 5, Colon resection, colostomy with take down and reanastamosis, removal of right ovary and aniceto History of tubal ligation History of hysteroscopy History of dilation and curettage History of knee surgery History of hysterectomy w/ removal of left ovary Family History Father Pancreatic cancer Unknown Hypertension Mother Macular degeneration Denies family history of Ovarian cancer Breast cancer Colorectal cancer Social History Smoking Status: Former smoker Second Hand Exposure: Yes (hx); Do You Dip or Chew Tobacco: No; Hx Alcohol Use: Yes Alcohol type: wine Hx Substance Use: No Preferred Language: Tunisian Communication Ability: Effective Esthetician Required: No Beliefs That Will Affect Care: None marital status: Current Living Situation: Spouse Feels Safe at Home: Yes Assistive Devices: None Review of System A 10 point ROS obtained. Pertinent positives as per hpi Physical Exam Physical Exam: Gen - anxious, tearful, NGT Neck supple Lung no increased wrk of breathing abd- soft , tender in RLQ Skin - Rgroin wound with surrounding cellulitis:erythema,warm, tender, indurated. Félix stool noted. EXAMINED with wound care nurse at bedside. - suprapubic tenderness, Joshi in place with yellow urine [id number] Psych- tearful regarding medical condition. Results & Data Vital Signs (Past 12 Hours) Vital Signs Temp Pulse Pulse Resp BP Pulse Ox O2 Del Method 04/06/23 07:19 36.9 C 1 L 18 128/71 93 Room Air 04/06/23 05:50 105 H 04/06/23 04:10 36.6 C 102 H 20 137/76 95 Room Air 04/05/23 23:59 120 H Laboratory Results Laboratory Results - last 48 hr 04/05/23 04/06/23 05:18 05:38 WBC 16.91 H 25.72 H RBC 3.43 L 3.32 L Hgb 10.3 L 9.8 L Hct 30.0 L 29.5 L MCV 87.5 88.9 MCH 30.0 29.5 MCHC 34.3 33.2 RDW Std Deviation 46.2 47.3 H RDW Coeff of Moe 14.4 14.7 H Plt Count 395 452 H MPV 9.0 L 9.1 L Immature Gran % (Auto) 6.8 Neut % (Auto) 79.6 Lymph % (Auto) 8.4 Coryell % (Auto) 4.6 Eos % (Auto) 0.2 Baso % (Auto) 0.4 Neut # (Auto) 20.45 H Lymph # (Auto) 2.17 Coryell # (Auto) 1.19 H Eos # (Auto) 0.06 Baso # (Auto) 0.11 Immature Gran # (Auto) 1.74 H Absolute Nucleated RBC 0.04 Nucleated RBC % (auto) 0.2 Neutrophils % (Manual) 79 Lymphocytes % (Manual) 11 Monocytes % (Manual) 2 Metamyelocytes % (Man) 6 Myelocytes % (Man) 2 Neutrophils # (Manual) 13.36 H Total Absolute Neuts 13.36 H Lymphocytes # (Manual) 1.86 Total Abs Lymphocytes 1.86 Monocytes # (Manual) 0.34 Metamyelocytes # (Man) 1.01 H Myelocytes # (Manual) 0.34 H Polychromasia 1+ Sodium 140 140 Potassium 3.9 3.6 Chloride 110 H 110 H Carbon Dioxide 23 22 Anion Gap 7 8 BUN 17 13 Creatinine 0.89 0.81 Est Cr Clr Drug Dosing 77.9 85.8 Est GFR ( Amer) 83.4 93.4 Est GFR (Non-Af Amer) 71.9 80.6 BUN/Creatinine Ratio 19.1 16.0 Glucose 136 H 138 H Calcium 8.4 L 8.1 L Diagnostic Findings Microbiology 04/03/23 14:48 Groin Gram Stain - Final 04/03/23 14:48 Groin Wound Culture - Final Lashell albicans/dubliniensis 04/02/23 11:42 Blood Aerobic Blood Culture - Preliminary No growth in Aerobic bottle after 48 hours. 04/02/23 11:42 Blood Anaerobic Blood Culture - Preliminary No growth in Anaerobic bottle after 48 hours. 04/02/23 11:47 Blood Aerobic Blood Culture - Preliminary No growth in Aerobic bottle after 48 hours. 04/02/23 11:47 Blood Anaerobic Blood Culture - Preliminary No growth in Anaerobic bottle after 48 hours. 04/02/23 09:47 Urine,Clean Catch Urine Culture - Final More than three types of organisms present, all high counts. Repeat collection recommended. No further identifications or sensitivities to follow. Abdomen/Pelvis CT 04/03/23 09:26 CT OF THE ABDOMEN AND PELVIS WITH ORAL CONTRAST CLINICAL HISTORY: Abdominal pain. Evaluate for cecal perforation. COMPARISON STUDY: CT of the abdomen and pelvis April 02, 2023. KUB performed earlier today. TECHNIQUE: Axial images of the abdomen and pelvis were obtained without IV contrast. Oral contrast was administered. Automated exposure control was utilized for the study. A dose lowering technique was utilized adhering to the principles of ALARA. FINDINGS: Subpleural opacities within the lower lungs favor atelectasis. Elevation of the right hemidiaphragm is again noted. There are gallstones within the gallbladder. The gallbladder is mildly distended. There is no pericholecystic infiltration. Unenhanced images of the liver, spleen, adrenal glands, kidneys and pancreas are unremarkable with the exception of punctate bilateral renal calculi. There are no ureteral calculi. There is no hydronephrosis. Joshi balloon within the bladder is in place. The bladder is collapsed. Moderate small bowel dilatation is similar to prior exam. Trace interloop ascites has developed. Lower abdominal and pelvic inflammation has slightly increased since prior CT. Gas extending along the anterior abdominal wall is again noted. This was shown on prior exam. There are multiple locules of extraluminal gas adjacent to the cecum which have slightly increased since prior exam. A small amount of extraluminal gas extending within the right retroperito neum is now noted. This was not evident on prior exam. Gas and fluid containing right pelvic collection has slightly increased in size. This is shown on image 359 of 457 measures 7.1 x 3.2 cm. This has mass effect upon the bladder. Adjacent stranding and fluid has minimally progressed. No new fluid collections are present. IMPRESSION: 1. Extensive pelvic and lower abdominal inflammation, slightly increased since prior exam. Increase in multiple extraluminal locules of gas adjacent to the cecum. In addition, extraluminal gas extends into the right retroperitoneum as well as the anterior abdominal wall. These findings are highly suspicious for a bowel perforation and the cecum is the suspected source. A small bowel perforation could result in a similar imaging appearance. Increase in size of the right pelvic fluid collection, measuring 7.1 x 3.2 cm. 2. No change in moderate small bowel dilatation without discrete transition point. This favors an ileus. A partial small bowel obstruction could appear similar. Interval development of trace interloop ascites 3. Cholelithiasis. Mild gallbladder distention. No pericholecystic infiltration to strongly suggest acute cholecystitis. ACT 112: Negative or not required by law. Electronically signed by: Yury Grullon M.D. 04/03/2023 1:36 PM Chest X-Ray 04/04/23 14:50 XR chest 1V portable HISTORY: 57 years-old Female pacu for ng tube placement status post placement of an enteric tube COMPARISON: Chest radiograph 04/02/2023 TECHNIQUE: AP view of the chest FINDINGS: Cardiac silhouette is enlarged. Chronic right hemidiaphragmatic elevation. Bibasilar densities are again noted favoring atelectasis. Bones appear grossly intact. Status post placement of an enteric tube with distal tip and side-port projecting over the gastric body. IMPRESSION: Status post placement of an enteric tube with distal tip projecting over the gastric body. ACT 112: Negative or not required by law. The above report was generated using voice recognition software. It may contain grammatical, syntax or spelling errors. Electronically signed by: Jeronimo Durham M.D. 04/04/2023 3:40 PM Medications Administered Home Medications Medication Instructions Recorded Confirmed Last Taken multivitamin (Daily Multi-Vitamin 1 tab PO DAILY #30 tabs 12/11/18 04/02/23 03/28/23 08:00 tablet) needle (disp) 25 gauge 25 gauge x #100 ea 12/11/18 01/25/23 Unknown 5/8" (BD Regular Bevel Pillow) bupropion HCl 150 mg 24 hr tablet, 150 mg PO BID 04/14/19 04/02/23 03/28/23 19:00 extended release melatonin 10 mg tablet 30 mg PO HS PRN Sleep 04/14/19 04/02/23 03/28/23 19:00 amitriptyline 50 mg tablet 50 mg PO HS 06/30/20 04/02/23 03/27/23 19:00 atorvastatin 10 mg tablet (Lipitor) 10 mg PO HS 06/30/20 04/02/23 03/28/23 19:00 ondansetron 4 mg disintegrating 4 mg PO Q6H PRN nausea and 06/30/20 04/02/23 Unknown tablet vomiting #12 tabs estradiol 0.075 mg/24 hr 1 patch transdermal 2XWK #24 ea 01/19/22 04/02/23 03/27/23 08:00 semiweekly transdermal patch doxepin 10 mg capsule 10 mg PO HS #90 caps 07/17/22 04/02/23 03/28/23 19:00 epinephrine 0.3 mg/0.3 mL 0.3 mg (0.3 mL) IM Q15M PRN 07/27/22 04/02/23 Unknown injection, auto-injector (EpiPen) anaphylaxis 3 doses #1 ea omalizumab 150 mg/mL subcutaneous See Rx Instructions .Route 11/10/22 04/02/23 03/08/23 08:30 syringe (Xolair) .COMPLEX ##2 omeprazole 20 mg capsule,delayed 20 mg PO QAM 03/16/23 04/02/23 03/28/23 08:00 release sumatriptan succinate 25 mg tablet 25 mg PO UD PRN migraine headache 03/16/23 04/02/23 Unknown (Imitrex) docusate sodium 100 mg capsule 100 mg PO BID PRN constipation #30 03/29/23 04/02/23 Unknown caps oxycodone-acetaminophen 7.5 mg-325 1 tab PO Q8H PRN pain #7 tabs 03/29/23 04/02/23 Unknown mg tablet (Percocet) phenazopyridine 200 mg tablet 200 mg PO Q8H PRN pain #10 tabs 03/29/23 04/02/23 Unknown (Pyridium) sulfamethoxazole 800 1 tab PO Q12H #10 tabs 03/29/23 04/02/23 Unknown mg-trimethoprim 160 mg tablet (Bactrim DS) tamsulosin 0.4 mg capsule 0.4 mg PO HS #30 caps 03/29/23 04/02/23 Unknown levocetirizine 5 mg tablet 5 mg PO DAILY 04/02/23 04/02/23 Unknown topiramate 50 mg tablet 50 mg PO DAILY 04/02/23 04/02/23 Unknown Active Medications Generic Name Dose Route Start Last Admin Trade Name Miguelq PRN Reason Stop Dose Admin Bupropion HCl 150 mg 04/05/23 21:00 04/06/23 08:22 Bupropion Hcl 75 Mg Tablet PO 05/05/23 20:59 150 mg BID MARISOL Administration Enoxaparin Sodium 40 mg 04/03/23 09:00 04/06/23 08:22 Enoxaparin Inj 40 Mg/0.4 Ml Syr SQ 05/03/23 08:59 40 mg QAM MARISOL Administration Daptomycin 425 mg/ Syringe 8.5 mls @ 4.25 mls/min 04/03/23 19:00 04/05/23 17:58 IV 04/10/23 18:59 4.25 mls/min Q24H MARISOL Administration Protocol Potassium Chloride/Dextrose/Sod Cl 20 meq in 1,000 mls @ 100 mls/hr 04/03/23 08:15 04/06/23 04:50 D5nss + 20meq Kcl IV 05/03/23 08:14 100 mls/hr .Q10H MARISOL Administration Protocol Pantoprazole Sodium 40 mg/ 10 mls @ 5 mls/min 04/03/23 11:00 04/06/23 11:03 Syringe IV 05/03/23 10:59 5 mls/min DAILY@1100 MARISOL Administration Acetaminophen 1,000 mg in 100 mls @ 400 mls/hr 04/03/23 23:15 04/06/23 06:08 Ofirmev IV 04/06/23 23:14 Infused Q8 MARISOL Infusion Cefepime HCl 2,000 mg/ Syringe 20 mls @ 5 mls/min 04/04/23 15:00 04/06/23 04:49 IV 04/14/23 14:59 5 mls/min Q12H MARISOL Administration Lorazepam 0.5 mg/ Syringe 0.5 mls @ 2 mls/min 04/05/23 15:15 04/06/23 04:49 IV 05/05/23 15:14 2 mls/min Q6H PRN Administration Anxiety/Agitation Miscellaneous 1 each 04/04/23 16:00 04/06/23 08:21 Check Scopolamine Patch Placement N/A 05/04/23 15:59 1 each QS MARISOL Administration Morphine Sulfate 2 mg 04/03/23 08:18 04/04/23 18:00 Morphine Sulfate 2 Mg/Ml Carp IV 04/17/23 08:17 2 mg Q3H PRN Administration Pain 1-5 Morphine Sulfate 4 mg 04/03/23 23:07 04/06/23 04:49 Morphine Sulfate 4 Mg/Ml 1 Ml Carp\\Vial IV 04/17/23 23:06 4 mg Q3H PRN Administration Pain 6-10 Ondansetron HCl 4 mg 04/03/23 08:18 04/06/23 04:50 Ondansetron Inj 2 Mg/Ml 2 Ml Vial IV 05/03/23 08:17 4 mg Q4H PRN Administration Nausea Scopolamine 1 mg 04/04/23 12:45 04/04/23 12:33 Scopolamine 1 Mg Tdsy TD 05/04/23 12:44 Not Given Q72H MARISOL (3) Leukocytosis Leukocytosis type: unspecified Qualified Code(s): D72.829 - Elevated white b lood cell count, unspecified
[2023-04-06] MEDS ORDERED: FLUCONAZOLE 100 MG TAB PO SCH (12:30)
[2023-04-06] MEDS ORDERED: PIPER/TAZO 4.5g in D5W MINI-B 100 ML IV ONE (12:45)
--- NOTE | 2023-04-06 13:08 | Urology Progress Note ---
Date of Service April 06, 2023 Assessment & Plan (1) Wound infection: (2) Leukocytosis: (3) Abdominal pain: (4) UTI (urinary tract infection): Plan 57yo/F who is s/p mid urethral sling with Dr. Sylvester on 03/29/23 admitted with abdominal pain, ISAURA, ileus and infection. - Plan of care reviewed with Dr. Sylvester. - POD #2 s/p Extraction/Explantation of Bladder Sling, Incision and Drainage Vaginal, Incision and drainage right groin, Washout, Cystoscopy, Wound Vac Application with Dr. Sylvester. - Afebrile, normotensive, mildly tachycardic. - Labs reviewedWBC 16.91- 25.72 today, hemoglobin 9.8, creatinine 0.81. - Urine and blood cultures 04/02 negative. Right groin culture grew yeast. - On Zosyn and Diflucan. ID consulted. - Joshi catheter intact, draining clear yellow urine. - Wound VAC in place to right groin. WCN following, appreciate assistance. - Continue supportive care and antibiotics. - Urology to follow. Update- - Patient reassessed. - Wound vac removed by WCN and found to be draining stool. - Discussed with hospitalist and general surgery team. - Given her history and active fistula, our recommendation is for transfer to tertiary center with colorectal surgery. - Continue supportive care and antibiotics. - OK to remove Joshi catheter. - Urology will follow See attending note for further details - Attending note: Patient independently examined and interviewed and evaluated. Agree with note as above. After removal of wound VAC patient developed discharge from the wound in the groin region on the right. General surgery is also evaluating. Discussed with patient possible causes. Discussed different options moving forward. Discussed options over the weekend. With patient's extremely complicated bowel history discussed options such as possible transfer to facility with dedicated colorectal surgery especially [place] where the patient has previously had numerous operations and extensive bowel management. Discussed options moving forward. Patient is currently afebrile. Is dealing with less pain. Is still having flatus with no major bowel movements but some sensations. Patient is not having considerable irritation. Is tolerating the drainage bag at this time. Discussed options moving forward. Patient is getting some sensation to void. Discussed removal of catheter per patient request. As she is interested in ambulating more we will be able to trial the removal catheter. If necessary can either utilize intermittent catheter and or possible repeat placement of catheter. At this point patient is interested in more ambulation and activity. Does understand risks especially issues with current situation. Patient is agreeable if transfer is possible. Reviewed extensively. We will plan continued close monitoring Admission and Anticipated Discharge Date Admission Date: April 02, 2023 Subjective Patient examined at bedside this AM. Awake, resting in bed on arrival. No acute distress. at bedside. Joshi intact, draining clear yellow urine. Wound VAC in place to right groin with surrounding erythema. NG tube in place. Feeling better today than yesterday. Denies fevers or chills. Review of Systems Constitutional: as per Subjective / HPI Gastrointestinal: as per Subjective / HPI Genitourinary: as per Subjective / HPI Physical Exam Constitutional: cooperative; no acute distress Respiratory: no respiratory distress and no labored breathing Gastrointestinal (Abdomen): Percussion/Palpation: abdomen soft; abdomen nontender Wound VAC in place to right groin. Miild erythema and tenderness around wound vac site. Psychiatric: Orientation: alert, oriented x 3 and cooperative Genitourinary: Joshi catheter, draining clear yellow urine Results & Data Vital Signs (Past 12 Hours) Vital Signs Temp Pulse Pulse Resp BP Pulse Ox O2 Del Method 04/06/23 12:48 37.4 C 96 H 18 125/81 93 Room Air 04/06/23 07:19 36.9 C 100 H 18 128/71 93 Room Air 04/06/23 05:50 105 H 04/06/23 04:10 36.6 C 102 H 20 137/76 95 Room Air PG Care Time/CCT Total # of Minutes Spent Total Time Spent with Patient: Total time spent is greater than 50% in coordination of care (as documented) at patient's floor/unit and/or counseling patient: Coding Level of Care Code 31704 SUB INP/OBS CARE 2/35MIN Diagnoses Wound infection T14.8XXA; L08.9 Leukocytosis D72.829 Leukocytosis type: unspecified Abdominal pain R10.84 Abdominal location: generalized UTI (urinary tract infection) N39.0 (2) Leukocytosis Leukocytosis type: unspecified Qualified Code(s): D72.829 - Elevated white blood cell count, unspecified (3) Abdominal pain Abdominal location: generalized Qualified Code(s): R10.84 - Generalized abdominal pain
--- NOTE | 2023-04-06 15:56 | Discharge Summary ---
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 Sylvester on 03/29 who presented to the [facility] ED on 04/02 at the recommendation of Dr. Sylvester for uncontrolled post- operative pain. She was noted to be tachycardic at 110 but otherwise stable. Labs were significant for a leukocytosis of 19 with neutrophil predominance of 16, Cr of 2.42 (baseline is approximately 1.0), BUN of 35, lactate WNL, potassium of 3.3, chloride of 95, AG of 12 with bicarb WNL, AST of 68, ALT of 69, alk phos of 211, and UA concerning for UTI. CT of the abd/pelvis wo con was read as "1. Moderate right pelvic inflammation. Associated small fluid collection along the right lateral aspect of the bladder, measuring 7 x 2.6 cm, with mild mass effect upon the bladder. Small amount of fluid extending along the right pelvic sidewall. In addition, gas along the medial base of the cecum which may be extraluminal. Although these findings may be postsurgical, an unde rlying bowel injury could have this imaging appearance. If indicated, a contrast-enhanced CT of the abdomen and pelvis could be obtained. 2. Moderate small bowel dilatation without discrete transition point. This favors an ileus. A partial small bowel obstruction could appear similar. 3. Cholelithiasis. No evidence for acute cholecystitis.". Prior to admission the patient was given a dose of Ceftriaxone, 8 mg IV morphine, and 4mg IV zofran. At the time of the exam the patient was lying in bed and appears uncomfortable, her is sitting at the bedside, history was obtained from both. They state that the patient started to develop suprapubic pain on 03/31. Since then her pain has progressed to a generalized abdominal pain with increasing distention. She has had the chills but has not taken her temperature. She has had charbel poor oral intake over this time. Her pain is described as a "squeezing" type pain. She has had nausea but denies recent vomiting. Her last BM was yesterday which was loose and possibly bloody per the patient. She states that she has had increased urinary frequency and has had a "greenish" discharge when changing the pads in her underwear over the past 48 hours. She confirms she has still been making urine and denies significantly decreased urine output. She has not had a BM today and has not been passing gas as of today. Over the past 48 hours she has been alternating 1000 mg PO Acetaminophen and 600 mg PO Ibuprofen q6h each. Her pain is currently a 3-4/10 after receiving another dose of morphine, her pain was a 10/10 prior to arrival. She confirms that she was taking the Bactrim as prescribed since her procedure on 03/29. She is a full code and wishes for her to make medical decisions for her if she cannot make them herself. Please refer to Dr. Mercedes's attestation for any changes to the treatment plan Principal Diagnosis An infected bladder sling; perforated bowel, suspected colon Discharge Exam General-alert and oriented x3, no fevers, no chills HEENT-head atraumatic and normocephalic, pupils equal and reactive to light, extraocular muscles intact. NG tube in place Neck-no lymphadenopathy or thyromegaly, trachea midline Chest-clear to auscultation percussion. No rales wheezing or rhonchi Cardiac-regular rate and rhythm, normal S1 and S2 Abdomen-distended. Right suprapubic wound VAC has been removed and the fistula is draining stool. Hypoactive bowel sounds. No rebound or guarding. No hepatosplenomegaly Extremities-no cyanosis, clubbing, or edema Neuro-cranial nerves II through XII intact, motor and sensory function within normal limits, strength symmetrical, no focal deficits Psych-normal affect, normal mood Discharge Data Allergies Allergy/AdvReac Type Severity Reaction Status Date / Time codeine Allergy Mild "can't Verified 03/29/23 09:29 remember reaction" Consultations 04/02/23 15:57 Consult General Surgery Stat 04/02/23 16:06 Consult Urology Routine 04/02/23 20:39 ED Decision to Admit Stat 04/06/23 09:53 Consult Infectious Diseases Routine Procedures Performed Operation Date: 04/04/23 07:00 Actual Procedures p Explantation of Bladder Sling, Incision and Drainage, Washout, Wound Vac Application - Castro Sylvester DO s Cystoscopy - Castro Sylvester DO Ordered Studies 04/02/23 11:24 CT abd pelvis wo con Stat 04/03/23 09:26 CT abd pelvis oral con only Urgent Hospital Course (1) Bowel obstruction: With colonic perforation, suspected. Appreciate general surgery consultation and recommendations. She currently is n.p.o. on IV fluids and IV antibiotics. She now has an NG tube in place. She is postoperative day #2 after bladder sling removal. Amberly isolated. Colon perforation suspected. Probably of cecal etiology poor CT scan report. She is draining stool through the right inguinal abscess incision and drainage site. The right pubic area wound VAC has been removed. She is now on intravenous Diflucan and Zosyn (2) Abdominal pain: Diffuse abdominal discomfort and pelvic discomfort after recent cystoscopy and placement of urethral sling. Suspected bowel obstruction with perforation. NG tube is now in place. General surgery and urology consultation recommendations appreciated. She is now on Diflucan and Zosyn. She is currently n.p.o. and on IV fluids. (3) Leukocytosis: Due to acute infection. Continue IV antibiotic and antifungal therapy. Serial labs (4) ISAURA (acute kidney injury): Resolved with IV fluids. Monitor intake and output. Serial labs. Creatinine now normal (5) Elevated LFTs: Minimal. No intervention needed at this time. Serial labs (6) Hypokalemia: IV supplementation. Serial labs Plan After discussion with general surgery and urology, it is decided to transfer the patient to a tertiary care center for continued care. She has been accepted to [facility] by Dr. Martinez Total Time Total Time Spent Total Time Spent (In Minutes): 45-minute Discharge Plan Discharge Items Patient Disposition: Transfer Acute Care Hospital Reason For Visit: UTI, POPST PROCEDURAL INFECTION Discharge Diagnosis: Suspected cecal colon perforation, fungal infection of recently placed urethral sling Condition on Discharge: Fair Activity: As commented below Activity Comment: Bedrest currently Non-emergency contact: Primary Care Provider Call non-emergency contact if: your symptoms worsen Follow-up/Referrals: Aleksander Rodriguez DO [Primary Care Provider] - Diet: Nothing by Mouth Addtl Attending Provider Instructions: Follow-up with primary care provider and urology after discharge from [facility] Pending Studies at Discharge: No Stand-Alone Forms: My [facility] Skilled Items Patient informed of condition?: Yes DNR: No Discharge Level of Care: Other Communicable Disease: No Discharge Prognosis: Stable Lines: Peripheral IV Urinary Catheter: Yes Medications and DC Order Prescriptions: New enoxaparin [Lovenox] 40 mg/0.4 mL Syringe 40 mg subcut QAM Qty: 0 0RF morphine 2 mg/mL Syringe 2 mg IV Q3H PRNQty: 0 0RF ondansetron HCl (PF) 4 mg/2 mL Solution 4 mg IV Q4H PRNQty: 0 0RF Discontinued doxepin 10 mg capsule 10 mg PO HS Qty: 90 3RF Xolair 150 mg/mL syringe See Rx Instructions .ROUTE .COMPLEX Qty: 2 11RF Dose Instruction: INJECT 300MG SUBCUTANEOUSLY EVERY 4 WEEKS Rx Instructions: INJECT 300MG SUBCUTANEOUSLY EVERY 4 WEEKS APPROVED thru pharmacy benefit GOOD 09/10/22-11/10/23 ([facility]) BD Regular Bevel [place] 25 gauge x 5/8" needle See Dose Instructions .ROUTE .MEDSUPPLY Qty: 100 0RF Dose Instruction: As directed Rx Instructions: As directed multivitamin [Daily Multi-Vitamin] tablet 1 tab PO DAILY Qty: 30 0RF estradiol 0.075 mg/24 hr patch semiweekly 1 patch transdermal 2XWK Qty: 24 3RF epinephrine [EpiPen] 0.3 mg/0.3 mL auto-injector 0.3 mg IM Q15M PRN (Reason: anaphylaxis) Qty: 1 0RF Rx Instructions: until response bupropion HCl 150 mg tablet extended release 24 hr 150 mg PO BID melatonin 10 mg Tablet 30 mg PO HS PRN (Reason: Sleep) atorvastatin [Lipitor] 10 mg tablet 10 mg PO HS amitriptyline 50 mg tablet 50 mg PO HS ondansetron 4 mg tablet,disintegrating 4 mg PO Q6H PRN (Reason: nausea and vomiting) Qty: 12 0RF sumatriptan succinate [Imitrex] 25 mg tablet 25 mg PO UD PRN (Reason: migraine headache) Rx Instructions: Take tablet PRN omeprazole 20 mg capsule,delayed release(DR/EC) 20 mg PO QAM phenazopyridine [Pyridium] 200 mg tablet 200 mg PO Q8H PRN (Reason: pain) Qty: 10 0RF sulfamethoxazole-trimethoprim [Bactrim DS] 800-160 mg tablet 1 tab PO Q12H Qty: 10 0RF tamsulosin 0.4 mg capsule 0.4 mg PO HS Qty: 30 0RF docusate sodium 100 mg capsule 100 mg PO BID PRN (Reason: constipation) Qty: 30 0RF oxycodone-acetaminophen [Percocet] 7.5-325 mg tablet 1 tab PO Q8H PRN (Reason: pain) Qty: 7 0RF topiramate 50 mg tablet 50 mg PO DAILY levocetirizine 5 mg tablet 5 mg PO DAILY Discharge Orders: Discharge Order (Routine); Ordered 04/06/23 Ordered By: Bk Tejeda Admission Data Admit Date/Time: 04/02/23 20:04 Attending Provider: Bk Tejeda Admit Provider: Semaj Mercedes Primary Care Provider: Aleksander Rodriguez Other Providers: Cameron Fine; Castro Sylvester; Semaj Mercedes; Sakshi Carrasco; Javi Clark; Wandy Flood; Molly Marie; Sonia Schumacher; Jessica Monroy; Venecia Snider; Leif Cole; Ciarra Junior; Kiarra Duron Coding Level of Care Code 76280 INP/OBS DISCH >30 MIN Diagnoses Bowel obstruction K56.609 Intestinal obstruction extent: unspecified extent Intestinal obstruction type: unspecified Abdominal pain R10.84 Abdominal location: generalized Leukocytosis D72.829 Leukocytosis type: unspecified ISAURA (acute kidney injury) N17.9 Elevated LFTs R79.89 Hypokalemia E87.6
[2023-04-06] MEDS ORDERED: FLUCONAZOLE 200 MG/100 ML BAG IV SCH (16:00)
[2023-04-06] MEDS ORDERED: PIPERACILLIN/TAZOBACTAM 4.5 GM in DEXTROSE 5% MINI-B 100 ML IV SCH (18:00)
[2023-04-06] MEDS ORDERED: LORazepam 0.5 MG in SYRINGE 0.25 ML IV ONE ×2 (21:30→23:30)
[2023-04-06] MEDS ORDERED: VORICONAZOLE IV SCH (23:00)
[2023-04-06] MEDS ORDERED: SODIUM CHLORIDE 0.9% IV SCH (23:00)
[2023-04-07] MEDS ORDERED: LORazepam 0.5 MG in SYRINGE 0.25 ML IV ONE (00:15)
[2023-04-07] MEDS: CHECK SCOPOLAMINE PATCH PLACEMENT SCH (00:28)
--- NOTE | 2023-04-10 07:56 | Coding Query ---
CODING QUERY To promote full compliance with coding requirements relating to patient care, provider participation is requested in all cases of human machine interface engineer uncertainty. Please assist us with the question(s) below: Coding Question(s): Patient admitted s/p sling procedure with sepsis, infected sling, intestinal obstruction. Please clarify, if known or suspected, the etiology of the intestinal perforation. Thanks for your help WILDER Love [facility] Physician's Response(s): Best guess is intestinal tear occurred intraoperatively during urethral sling procedure. Principal Diagnosis: "that condition established after study, to be chiefly responsible for occasioning the admission of the patient to the hospital for care." Co-Existing Principal Diagnosis: "when two or more diagnoses equally meet the criteria for principal diagnosis as determined by the circumstances of admission, diagnostic work up, and/or therapy provided, and the Alphabetic Index, Tabular List, or another coding guideline does not provide sequencing direction, any one of the diagnoses may be sequenced first." "When the physician has documented what appears to be a current diagnosis in the body of the record, but has not included the diagnosis in the final diagnostic statement, the physician should be asked whether the diagnosis should be added." (Source Coding [facility] 2 QTR90. p3-4) FERNANDA
== END 2023-04-07 02:05 | disposition short-term general hospital (02) | DRG 857 ==
LOC: ED 08:57 → SUATTDRO 20:04 → EDINP 20:04 → 2N 04-03 18:42